=== PATIENT | female | born 1945 | race Caucasian/White ===

== ENCOUNTER 2021-01-04 11:20 | Emergency (ER) | payer MEDICARE, OTHER ==
[2021-01-04] MEDS ORDERED: Sodium Chloride 0.9% 10 ML Syringe FLUSH PRN (12:08)
--- NOTE | 2021-01-04 12:54 | CT ---
Head CT Technique: Multiple axial sections were obtained through the brain. Reconstructed coronal and sagittal images were obtained. Comparison: No prior intracranial imaging is available. Findings: Ventricles along with basal cisterns and sulci over the convexities are mildly prominent. Diminished density is noted within the periventricular white matter and subcortical white matter which most likely represents small vessel ischemic demyelination change. Minimal low density area is seen within the right cerebellar hemisphere compatible with old lacunar infarct. No other abnormal parenchymal densities are seen. No evidence of intracranial hemorrhage is seen. No midline shift or mass-effect is seen. Bone window settings were reviewed. Visualized mastoid sinuses are clear. Visualized paranasal sinuses show minimal mucosal thickening within the right side of the sphenoid sinus. There is atherosclerotic calcification within the carotid siphons and vertebral vessels. No acute calvarial abnormality is appreciated. Impression: 1. Senescent change as described above. 2. Nothing acute is appreciated on noncontrast head CT study. Diagnostic code #2
--- NOTE | 2021-01-04 13:07 | CR ---
Chest: 2 views of the chest were obtained. Comparison: No prior chest imaging is available. Heart size and mediastinum are within normal limits. Bichamber pacemaker is noted. Sternotomy wires are noted as well as prosthetic heart valve. Lungs are clear with no acute parenchymal change. Mild degenerative change is scattered within the spine. Impression: 1. Findings as noted above. 2. Nothing acute is appreciated on 2 view chest x-ray. Diagnostic code #2
[2021-01-04] MEDS ORDERED: Sodium Chloride 0.9% 1,000 ML IV STA (13:45)
--- NOTE | 2021-01-04 13:48 | EDM.PDOC ---
ED HPI GENERAL MEDICAL PROBLEM - General Chief Complaint: Genitourinary Problem Stated Complaint: WEAK,LIGHTHEADED,DIABETIC SENT BY [facility] Time Seen by Provider: 01/04/21 11:30 Source of Information: Reports: Patient, Family, RN Notes Reviewed History Limitations: Reports: No Limitations - History of Present Illness INITIAL COMMENTS - FREE TEXT/NARRATIVE: Patient is a 75-year-old female presenting to the emergency department with her son with complaints of weakness, shortness of breath, lightheadedness, and recent falls. Patient is visiting her son from [place]. Son reports that about 1 month ago, she was hospitalized in [place] for dehydration. She came up here about a week ago. When he went to supervisor picking crew an ER, he noticed that she was not quite right. Is reported that she has been getting progressively more weak over the last few weeks. She does have a history of dementia and has had some intermittent confusion. Patient and her son report that she had a fall on Friday in which she hit the back of her head. She had another fall yesterday in which she had the back of her head. She denies any pain to other portions of her body. She states that she does have chronic shortness of breath, however it has been worse over the last few weeks. Yesterday after the fall, she had some numbness in the left side of her tongue, however this lasted approximately half hour and then resolved. States that her weakness is bilateral and generalized throughout. She is not more weak on one side than the other. She denies any headache or acute vision changes. She has had no recent chest pain, nausea, vomiting, abdominal pain or diarrhea. She was seen at the [facility] prior to coming here and diagnosed with a urinary tract infection. Patient does report that she has had urinary tract infections in the past and is incontinent of urine at this time. She has had no known fever. - Related Data Allergies Allergy/AdvReac Type Severity Reaction Status Date / Time cephalexin Allergy Cannot Verified 01/04/21 11:36 Remember Home Meds: Home Meds Amitriptyline [Elavil] 50 mg PO DAILY 01/04/21 [History] Aspirin 81 mg PO DAILY 01/04/21 [History] Donepezil [Aricept] 5 mg PO BEDTIME 01/04/21 [History] Simvastatin [Zocor] 10 mg PO BEDTIME 01/04/21 [History] atenoloL [Atenolol] 25 mg PO DAILY 01/04/21 [History] predniSONE [Prednisone] 5 mg PO DAILY 01/04/21 [History] Past Medical History HEENT History: Reports: Cataract, Hard of Hearing, Impaired Vision Cardiovascular History: Reports: Bypass, High Cholesterol, Hypertension, OR Respiratory History: Reports: SOB Genitourinary History: Reports: Urinary Incontinence, UTI, Recurrent [employer] History: Reports: Musculoskeletal History: Reports: Arthritis Neurological History: Reports: Migraines Endocrine/Metabolic History: Reports: Diabetes, Type II - Infectious Disease History Infectious Disease History: Reports: Chicken Pox - Past Surgical History HEENT Surgical History: Reports: Cataract Surgery Cardiovascular Surgical History: Reports: Coronary Artery Bypass Musculoskeletal Surgical History: Reports: Carpal Tunnel Social & Family History - Family History Family Medical History: No Pertinent Family History - Tobacco Use Tobacco Use Status *Q: Former Tobacco User Years of Tobacco use: 27 Packs/Tins Daily: 2 Used Tobacco, but Quit: Yes Month/Year Tobacco Last Used: 06/1980 Second Hand Smoke Exposure: No - Caffeine Use Caffeine Use: Reports: None - Recreational Drug Use Recreational Drug Use: No ED ROS GENERAL - Review of Systems Review Of Systems: See Below Constitutional: Reports: Weakness, Fatigue. Denies: Fever, Chills HEENT: Reports: No Symptoms Respiratory: Reports: Shortness of Breath. Denies: Pleuritic Chest Pain, Cough Cardiovascular: Reports: Dyspnea on Exertion, Lightheadedness. Denies: Chest Pain, Edema, Syncope Endocrine: Reports: No Symptoms GI/Abdominal: Reports: Black Stool. Denies: Abdominal Pain, Nausea, Vomiting : Reports: Incontinence. Denies: Dysuria Musculoskeletal: Reports: No Symptoms Skin: Reports: No Symptoms Neurological: Reports: Confusion (At baseline. History of dementia.). Denies: Dizziness, Headache Psychiatric: Reports: No Symptoms Hematologic/Lymphatic: Reports: No Symptoms Immunologic: Reports: No Symptoms ED EXAM, GI/ABD - Physical Exam Exam: See Below Exam Limited By: No Limitations General Appearance: Alert, WD/WN, No Apparent Distress Eyes: Bilateral: Normal Appearance Throat/Mouth: Normal Inspection, Normal Lips, Normal Teeth, Normal Gums, Normal Oropharynx, Normal Voice, No Airway Compromise Respiratory/Chest: No Respiratory Distress, Lungs Clear, Normal Breath Sounds, No Accessory Muscle Use, Chest Non-Tender Cardiovascular: Normal Peripheral Pulses, Regular Rate, Rhythm, No Edema, No Gallop, No JVD, No Murmur, No Rub GI/Abdominal Exam: Normal Bowel Sounds, Soft, Non-Tender, No Organomegaly, No Distention, No Abnormal Bruit, No Mass, Pelvis Stable Rectal (Female) Exam: Normal Exam, Normal Rectal Tone, Heme + Stool Neurological: Alert, Oriented, CN II-XII Intact, Normal Cognition, Normal Gait, Normal Reflexes, No Motor/Sensory Deficits, Other (Transient confusion due to history of dementia.) Psychiatric: Normal Affect, Normal Mood Skin Exam: Warm, Dry, Intact, No Rash, Pallor #1 Interpretation EKG Date: 01/04/21 Time: 12:50 Rhythm: NSR Rate (Beats/Min): 60 [place]: Normal P-Wave: Present QRS: Normal ST-T: Normal QT: Normal EKG Interpretation Comments: Sinus rhythm at 60/min Q waves in V1 and V2-old anterior septal OR T wave inversion 1/aVL/V3 through V6-consider ischemia First-degree AV block EKG interpreted by Dr. Shruti TURNER. Course - Vital Signs Last Recorded V/S: Last Vital Signs Temp 97.1 F 01/04/21 11:28 Pulse 79 01/04/21 11:28 Resp 18 01/04/21 11:28 BP 108/28 L 01/04/21 11:28 Pulse Ox 96 01/04/21 11:28 - Orders/Labs/Meds Orders: Active Orders 24 hr Category Date Time Status ANTIBODY IDENTIFICATION [BBK] Stat Lab 01/04/21 11:55 Results CULTURE BLOOD [BC] Stat Lab 01/04/21 12:45 Received CULTURE BLOOD [BC] Stat Lab 01/04/21 13:05 Received CULTURE URINE [MREF] Stat Lab 01/04/21 13:58 Received RED BLOOD CELLS LP [BBK] Stat Lab 01/04/21 11:55 Results TYPE AND SCREEN [BBK] Stat Lab 01/04/21 11:55 Results Blood Culture x2 Reflex Set [OM.PC] Stat Oth 01/04/21 12:08 Ordered Peripheral IV Insertion Adult [OM.PC] Stat Oth 01/04/21 12:08 Ordered Transfuse Red Blood Cells [COMM] Routine Oth 01/04/21 13:33 Ordered Labs: Laboratory Tests 01/04/21 01/04/21 01/04/21 Range/Units 11:55 11:55 11:55 WBC (3.98-10.04) K/mm3 RBC (3.98-5.22) M/mm3 Hgb (11.2-15.7) gm/dl Hct (34.1-44.9) % MCV (79.4-94.8) fl MCH (25.6-32.2) pg MCHC (32.2-35.5) g/dl RDW Std Deviation (36.4-46.3) fL Plt Count (182-369) K/mm3 MPV (9.4-12.3) fl Neut % (Auto) (34.0-71.1) % Lymph % (Auto) (19.3-51.7) % [place] % (Auto) (4.7-12.5) % Eos % (Auto) (0.7-5.8) Baso % (Auto) (0.1-1.2) % Neut # (Auto) (1.56-6.13) K/mm3 Lymph # (Auto) (1.18-3.74) K/mm3 [place] # (Auto) (0.24-0.36) K/mm3 Eos # (Auto) (0.04-0.36) K/mm3 Baso # (Auto) (0.01-0.08) K/mm3 Manual Slide Review Sodium (136-145) mEq/L Potassium (3.5-5.1) mEq/L Chloride (98-107) mEq/L Carbon Dioxide (21-32) mEq/L Anion Gap (5-15) BUN (7-18) mg/dL Creatinine (0.55-1.02) mg/dL Est Cr Clr Drug Dosing mL/min Estimated GFR (MDRD) (>60) mL/min BUN/Creatinine Ratio (14-18) Glucose (70-99) mg/dL Calcium (8.5-10.1) mg/dL Magnesium (1.8-2.4) mg/dL Total Bilirubin (0.2-1.0) mg/dL AST (15-37) U/L ALT (14-59) U/L Alkaline Phosphatase (46-116) U/L CK-MB (CK-2) (0-3.6) ng/ml Troponin I (0.00-0.056) ng/mL C-Reactive Protein (<1.0) mg/dL NT-Pro-B Natriuret Pep (0-450) pg/mL Total Protein (6.4-8.2) g/dl Albumin (3.4-5.0) g/dl Globulin gm/dL Albumin/Globulin Ratio (1-2) Vitamin B12 321 (193-986) pg/ml Folate 13.0 (8.6-58.9) ng/mL Urine Color (Yellow) Urine Appearance (Clear) Urine pH (5.0-8.0) Ur Specific [place] (1.005-1.030) Urine Protein (Negative) Urine Glucose (UA) (Negative) Urine Ketones (Negative) Urine Occult Blood (Negative) Urine Nitrite (Negative) Urine Bilirubin (Negative) Urine Urobilinogen (0.2-1.0) Ur Leukocyte Esterase (Negative) U Hyaline Cast (Auto) (0-5) /lpf Urine RBC (0-5) /hpf Urine WBC (0-5) /hpf Ur Squamous Epith Cells (0-5) /hpf Urine Bacteria (FEW) /hpf Urine Mucus (FEW) /hpf SARS-CoV-2 RNA (DORA) (NEGATIVE) Blood Type O POSITIVE Gel Antibody Screen Positive Crossmatch See Detail 01/04/21 01/04/21 01/04/21 Range/Units 11:55 12:45 12:45 WBC 7.65 (3.98-10.04) K/mm3 RBC 2.00 L (3.98-5.22) M/mm3 Hgb 5.9 L* (11.2-15.7) gm/dl Hct 20.7 L (34.1-44.9) % MCV 103.5 H (79.4-94.8) fl MCH 29.5 (25.6-32.2) pg MCHC 28.5 L (32.2-35.5) g/dl RDW Std Deviation 56.3 H (36.4-46.3) fL Plt Count 118 L (182-369) K/mm3 MPV 11.7 (9.4-12.3) fl Neut % (Auto) 74.9 H (34.0-71.1) % Lymph % (Auto) 15.6 L (19.3-51.7) % [place] % (Auto) 8.8 (4.7-12.5) % Eos % (Auto) 0.1 L (0.7-5.8) Baso % (Auto) 0.1 (0.1-1.2) % Neut # (Auto) 5.73 (1.56-6.13) K/mm3 Lymph # (Auto) 1.19 (1.18-3.74) K/mm3 [place] # (Auto) 0.67 H (0.24-0.36) K/mm3 Eos # (Auto) 0.01 L (0.04-0.36) K/mm3 Baso # (Auto) 0.01 (0.01-0.08) K/mm3 Manual Slide Review Abnormal smear Sodium 139 (136-145) mEq/L Potassium 4.5 (3.5-5.1) mEq/L Chloride 101 (98-107) mEq/L Carbon Dioxide 22 (21-32) mEq/L Anion Gap 20.5 H (5-15) BUN 24 H (7-18) mg/dL Creatinine 1.2 H (0.55-1.02) mg/dL Est Cr Clr Drug Dosing 31.05 mL/min Estimated GFR (MDRD) 44 (>60) mL/min BUN/Creatinine Ratio 20.0 H (14-18) Glucose 134 H (70-99) mg/dL Calcium 10.5 H (8.5-10.1) mg/dL Magnesium 1.6 L (1.8-2.4) mg/dL Total Bilirubin 0.4 (0.2-1.0) mg/dL AST 18 (15-37) U/L ALT 25 (14-59) U/L Alkaline Phosphatase 56 (46-116) U/L CK-MB (CK-2) 34.0 H (0-3.6) ng/ml Troponin I 0.215 H* (0.00-0.056) ng/mL C-Reactive Protein 0.7 (<1.0) mg/dL NT-Pro-B Natriuret Pep (0-450) pg/mL Total Protein 6.8 (6.4-8.2) g/dl Albumin 3.1 L (3.4-5.0) g/dl Globulin 3.7 gm/dL Albumin/Globulin Ratio 0.8 L (1-2) Vitamin B12 (193-986) pg/ml Folate (8.6-58.9) ng/mL Urine Color (Yellow) Urine Appearance (Clear) Urine pH (5.0-8.0) Ur Specific [place] (1.005-1.030) Urine Protein (Negative) Urine Glucose (UA) (Negative) Urine Ketones (Negative) Urine Occult Blood (Negative) Urine Nitrite (Negative) Urine Bilirubin (Negative) Urine Urobilinogen (0.2-1.0) Ur Leukocyte Esterase (Negative) U Hyaline Cast (Auto) (0-5) /lpf Urine RBC (0-5) /hpf Urine WBC (0-5) /hpf Ur Squamous Epith Cells (0-5) /hpf Urine Bacteria (FEW) /hpf Urine Mucus (FEW) /hpf SARS-CoV-2 RNA (DORA) (NEGATIVE) Blood Type Gel Antibody Screen Crossmatch 01/04/21 01/04/21 01/04/21 Range/Units 12:45 13:45 13:55 WBC (3.98-10.04) K/mm3 RBC (3.98-5.22) M/mm3 Hgb (11.2-15.7) gm/dl Hct (34.1-44.9) % MCV (79.4-94.8) fl MCH (25.6-32.2) pg MCHC (32.2-35.5) g/dl RDW Std Deviation (36.4-46.3) fL Plt Count (182-369) K/mm3 MPV (9.4-12.3) fl Neut % (Auto) (34.0-71.1) % Lymph % (Auto) (19.3-51.7) % [place] % (Auto) (4.7-12.5) % Eos % (Auto) (0.7-5.8) Baso % (Auto) (0.1-1.2) % Neut # (Auto) (1.56-6.13) K/mm3 Lymph # (Auto) (1.18-3.74) K/mm3 [place] # (Auto) (0.24-0.36) K/mm3 Eos # (Auto) (0.04-0.36) K/mm3 Baso # (Auto) (0.01-0.08) K/mm3 Manual Slide Review Sodium (136-145) mEq/L Potassium (3.5-5.1) mEq/L Chloride (98-107) mEq/L Carbon Dioxide (21-32) mEq/L Anion Gap (5-15) BUN (7-18) mg/dL Creatinine (0.55-1.02) mg/dL Est Cr Clr Drug Dosing mL/min Estimated GFR (MDRD) (>60) mL/min BUN/Creatinine Ratio (14-18) Glucose (70-99) mg/dL Calcium (8.5-10.1) mg/dL Magnesium (1.8-2.4) mg/dL Total Bilirubin (0.2-1.0) mg/dL AST (15-37) U/L ALT (14-59) U/L Alkaline Phosphatase (46-116) U/L CK-MB (CK-2) (0-3.6) ng/ml Troponin I (0.00-0.056) ng/mL C-Reactive Protein (<1.0) mg/dL NT-Pro-B Natriuret Pep 1301 H (0-450) pg/mL Total Protein (6.4-8.2) g/dl Albumin (3.4-5.0) g/dl Globulin gm/dL Albumin/Globulin Ratio (1-2) Vitamin B12 (193-986) pg/ml Folate (8.6-58.9) ng/mL Urine Color Light yellow (Yellow) Urine Appearance Slt cloudy H (Clear) Urine pH 6.0 (5.0-8.0) Ur Specific [place] 1.025 (1.005-1.030) Urine Protein Negative (Negative) Urine Glucose (UA) Negative (Negative) Urine Ketones Trace H (Negative) Urine Occult Blood Negative (Negative) Urine Nitrite Positive H (Negative) Urine Bilirubin Negative (Negative) Urine Urobilinogen 0.2 (0.2-1.0) Ur Leukocyte Esterase 1+ H (Negative) U Hyaline Cast (Auto) 20-30 H (0-5) /lpf Urine RBC Not seen (0-5) /hpf Urine WBC 20-30 H (0-5) /hpf Ur Squamous Epith Cells 0-5 (0-5) /hpf Urine Bacteria Many H (FEW) /hpf Urine Mucus Moderate H (FEW) /hpf SARS-CoV-2 RNA (DORA) Negative (NEGATIVE) Blood Type Gel Antibody Screen Crossmatch 01/04/21 Range/Units 16:06 WBC (3.98-10.04) K/mm3 RBC (3.98-5.22) M/mm3 Hgb 5.1 L* (11.2-15.7) gm/dl Hct 17.7 L (34.1-44.9) % MCV (79.4-94.8) fl MCH (25.6-32.2) pg MCHC (32.2-35.5) g/dl RDW Std Deviation (36.4-46.3) fL Plt Count (182-369) K/mm3 MPV (9.4-12.3) fl Neut % (Auto) (34.0-71.1) % Lymph % (Auto) (19.3-51.7) % [place] % (Auto) (4.7-12.5) % Eos % (Auto) (0.7-5.8) Baso % (Auto) (0.1-1.2) % Neut # (Auto) (1.56-6.13) K/mm3 Lymph # (Auto) (1.18-3.74) K/mm3 [place] # (Auto) (0.24-0.36) K/mm3 Eos # (Auto) (0.04-0.36) K/mm3 Baso # (Auto) (0.01-0.08) K/mm3 Manual Slide Review Sodium (136-145) mEq/L Potassium (3.5-5.1) mEq/L Chloride (98-107) mEq/L Carbon Dioxide (21-32) mEq/L Anion Gap (5-15) BUN (7-18) mg/dL Creatinine (0.55-1.02) mg/dL Est Cr Clr Drug Dosing mL/min Estimated GFR (MDRD) (>60) mL/min BUN/Creatinine Ratio (14-18) Glucose (70-99) mg/dL Calcium (8.5-10.1) mg/dL Magnesium (1.8-2.4) mg/dL Total Bilirubin (0.2-1.0) mg/dL AST (15-37) U/L ALT (14-59) U/L Alkaline Phosphatase (46-116) U/L CK-MB (CK-2) (0-3.6) ng/ml Troponin I (0.00-0.056) ng/mL C-Reactive Protein (<1.0) mg/dL NT-Pro-B Natriuret Pep (0-450) pg/mL Total Protein (6.4-8.2) g/dl Albumin (3.4-5.0) g/dl Globulin gm/dL Albumin/Globulin Ratio (1-2) Vitamin B12 (193-986) pg/ml Folate (8.6-58.9) ng/mL Urine Color (Yellow) Urine Appearance (Clear) Urine pH (5.0-8.0) Ur Specific [place] (1.005-1.030) Urine Protein (Negative) Urine Glucose (UA) (Negative) Urine Ketones (Negative) Urine Occult Blood (Negative) Urine Nitrite (Negative) Urine Bilirubin (Negative) Urine Urobilinogen (0.2-1.0) Ur Leukocyte Esterase (Negative) U Hyaline Cast (Auto) (0-5) /lpf Urine RBC (0-5) /hpf Urine WBC (0-5) /hpf Ur Squamous Epith Cells (0-5) /hpf Urine Bacteria (FEW) /hpf Urine Mucus (FEW) /hpf SARS-CoV-2 RNA (DORA) (NEGATIVE) Blood Type Gel Antibody Screen Crossmatch Meds: Medications Discontinued Medications Generic Name Dose Route Start Last Admin Trade Name Freq PRN Reason Stop Dose Admin Sodium Chloride 1,000 mls @ 75 mls/hr 01/04/21 13:45 01/04/21 14:04 Normal Saline IV 01/05/21 03:04 75 mls/hr NOW STA Administration Piperacillin Sod/Tazobactam 100 mls @ 200 mls/hr 01/04/21 14:44 01/04/21 15:32 Sod 4.5 gm/ Sodium Chloride IV 01/04/21 15:13 200 mls/hr ONETIME ONE Administration Pantoprazole Sodium 80 mg 01/04/21 14:45 01/04/21 15:26 Pantoprazole 40 Mg Vial IVPUSH 01/04/21 14:46 80 mg BOLUS ONE Administration Sodium Chloride 10 ml 01/04/21 12:08 01/04/21 12:19 Sodium Chloride 0.9% 10 Ml Syringe FLUSH 10 ml ASDIRECTED PRN Administration Keep Vein Open - Re-Assessments/Exams Free Text/Narrative Re-Assessment/Exam: 01/04/21 13:43 Critical hemoglobin received from lab. Hemoglobin is 5.9. After further discussion with patient, she reports having a large black stool this morning. Hemoccult stool was positive. I ordered type and screen with 3 units of packed RBCs to be crossmatched. 01/04/21 1510 Remainder of hematology was significant for anion gap elevated at 20.5, BUN 24, creatinine 1.2, magnesium 1.6, CK-MB 34, troponin 0 0.215, proBNP 1301. Urinalysis was grossly positive for urinary tract infection. Patient has an allergy to cephalexin, but states that she has done well with penicillins in the past. I have ordered Zosyn for treatment of urinary tract infection. Urine has been sent for culture. Case was discussed with Dr. Mays, coal trimmer machine operator bat person at [facility]. He feels the elevation in troponin is related to her anemia. Recommends transfusion of blood to maintain hemoglobin above 8 and treatment for urinary tract infection. Recommends trending troponins. Does not feel any further cardiac intervention is needed at this time. Immediately after getting off the phone with Dr. Paula, I received a call from lab notify me that patient has antibodies, therefore blood will not be available to be transfused until tomorrow at the earliest. I feel patient needs blood transfusion as soon as possible. Case was discussed with hospitalist at [facility], Dr. Brooks. He has accepted the patient for transfer with a direct admission. He did request that if she is not on the road in the next hour, that we repeat a hemoglobin. One[facility]call will notify us when a bed is available and patient will be sent by ground ambulance. 01/04/21 16:32 Repeat hemoglobin was 5.1. Called and spoke with 1 call nurse who will update the hospitalist of this. Patient is currently in route to [facility] via [facility]. Departure - Departure Time of Disposition: 15:10 Disposition: DC/Tfer to Acute Hospital 02 Condition: Fair Clinical Impression: UTI, Urinary tract infectious disease, Upper GI bleeding, Elevated troponin Anemia Qualifiers: Anemia type: unspecified type Qualified Code(s): D64.9 - Anemia, unspecified - Discharge Information Referrals: PCP,Not In Area [Primary Care Provider] - Forms: ED Department Discharge Sepsis Event Note (ED) - Evaluation Sepsis Screening Result: No Definite Risk - Focused Exam Vital Signs: Vital Signs Temp Pulse Resp BP Pulse Ox 01/04/21 11:28 97.1 F 79 18 108/28 L 96 - My Orders Last 24 Hours: My Active Orders 01/04/21 11:55 ANTIBODY IDENTIFICATION [BBK] Stat RED BLOOD CELLS LP [BBK] Stat TYPE AND SCREEN [BBK] Stat 01/04/21 12:08 Blood Culture x2 Reflex Set [OM.PC] Stat Peripheral IV Insertion Adult [OM.PC] Stat 01/04/21 12:45 CULTURE BLOOD [BC] Stat 01/04/21 13:05 CULTURE BLOOD [BC] Stat 01/04/21 13:33 Transfuse Red Blood Cells [COMM] Routine 01/04/21 13:58 CULTURE URINE [MREF] Stat - Assessment/Plan Last 24 Hours: My Active Orders 01/04/21 11:55 ANTIBODY IDENTIFICATION [BBK] Stat RED BLOOD CELLS LP [BBK] Stat TYPE AND SCREEN [BBK] Stat 01/04/21 12:08 Blood Culture x2 Reflex Set [OM.PC] Stat Peripheral IV Insertion Adult [OM.PC] Stat 01/04/21 12:45 CULTURE BLOOD [BC] Stat 01/04/21 13:05 CULTURE BLOOD [BC] Stat 01/04/21 13:33 Transfuse Red Blood Cells [COMM] Routine 01/04/21 13:58 CULTURE URINE [MREF] Stat
[2021-01-04] MEDS ORDERED: Piperacillin/Tazobactam 4.5 GM in Sodium Chloride 0.9% 100 ML IV ONE (14:44)
[2021-01-04] MEDS ORDERED: Pantoprazole 40 MG Vial IVPUSH ONE (14:45)
== END 2021-01-04 16:15 ==
LOC: JD.ED 11:20
DX: K92.2 Gastrointestinal hemorrhage, unspecified (principal); N39.0 Urinary tract infection, site not specified; R79.89 Other specified abnormal findings of blood chemistry; D64.9 Anemia, unspecified; I44.0 Atrioventricular block, first degree; I10 Essential (primary) hypertension; E78.00 Pure hypercholesterolemia, unspecified; I25.2 Old myocardial infarction; M19.90 Unspecified osteoarthritis, unspecified site; E11.9 Type 2 diabetes mellitus without complications; Z87.891 Personal history of nicotine dependence; Z88.1 Allergy status to other antibiotic agents; Z79.82 Long term (current) use of aspirin; Z79.899 Other long term (current) drug therapy; Z20.822 Contact with and (suspected) exposure to COVID-19
CPT/HCPCS: 36415; 70450; 71046; 80053; 81001; 82553; 82607; 82746; 83735; 83880; 84484; 85014; 85018; 85025; 86140; 87040; 87086; 87088; 87186; 93005; 96365; 96375; 99285; C9113; J2543; J7030; U0002; 86850; 86870; 86900; 86901; 86922; 93010

== ENCOUNTER 2021-01-17 08:55 | Emergency (ER) | payer MEDICARE, OTHER ==
[2021-01-17] MEDS ORDERED: Sodium Chloride 0.9% 10 ML Syringe FLUSH PRN (09:22)
[2021-01-17] MEDS ORDERED: Pantoprazole 40 MG Vial IVPUSH ONE (09:23)
--- NOTE | 2021-01-17 10:25 | CR ---
Chest: Portable view of the chest was obtained. Comparison: Prior chest x-ray of 01/04/21. Heart size is felt to be slightly enlarged. Tortuous thoracic aorta is seen. Pacemaker is noted. Lungs are clear with no acute parenchymal change. Surgical clips are noted from prior cholecystectomy. Sternotomy is noted with prosthetic valve. Impression: 1. Slightly prominent heart size. Prior sternotomy is noted. Prosthetic heart valve is seen. Pacemaker is noted. 2. Nothing acute is otherwise seen. Diagnostic code #2
--- NOTE | 2021-01-17 12:41 | EDM.PDOC ---
ED HPI GENERAL MEDICAL PROBLEM - General Chief Complaint: Chest Pain Stated Complaint: CHEST TIGHTNESS/NAUSEA/DARK STOOL Time Seen by Provider: 01/17/21 09:12 Source of Information: Reports: Patient, Family History Limitations: Reports: No Limitations - History of Present Illness INITIAL COMMENTS - FREE TEXT/NARRATIVE: The patient presents with loose dark stools and chest pain. The chest pain started last night and went away and now this morning she had it again. She also has been having loose dark stools and she vomited once this morning. She was seen her about 13 days ago for weakness. She was found to have low Hgb of 5.9 and elevated troponin. She was sent to [facility] in [place]. She was found to have a UTI and GI bleed. According to her son, her Hgb went up to normal with blood. She had antibodies in her blood so she needed to go to [place]. She has no fever, chills, cough, abdominal pain, nausea or vomiting. She does have shortness of breath. Onset: Gradual Duration: Day(s): Location: Reports: Chest Quality: Reports: Sharp Severity: Moderate Improves with: Reports: None Worsens with: Reports: None Associated Symptoms: Reports: Chest Pain, Shortness of Breath. Denies: Cough, Fever/Chills, Headaches, Nausea/Vomiting Chest Pain Score (Numeric/FACES): 8 - Related Data Allergies Allergy/AdvReac Type Severity Reaction Status Date / Time cephalexin Allergy Cannot Verified 01/17/21 09:04 Remember Home Meds: Home Meds Amitriptyline [Elavil] 50 mg PO DAILY 01/04/21 [History] Aspirin 81 mg PO DAILY 01/04/21 [History] Donepezil [Aricept] 5 mg PO BEDTIME 01/04/21 [History] Simvastatin [Zocor] 10 mg PO BEDTIME 01/04/21 [History] atenoloL [Atenolol] 25 mg PO DAILY 01/04/21 [History] predniSONE [Prednisone] 5 mg PO DAILY 01/04/21 [History] Past Medical History HEENT History: Reports: Cataract, Hard of Hearing, Impaired Vision Cardiovascular History: Reports: Bypass, High Cholesterol, Hypertension, [place] Respiratory History: Reports: SOB Gastrointestinal History: Reports: GI Bleed, PUD Genitourinary History: Reports: Urinary Incontinence, UTI, Recurrent [employer]ENER History: Reports: Musculoskeletal History: Reports: Arthritis Neurological History: Reports: Migraines Psychiatric History: Reports: None Endocrine/Metabolic History: Reports: Diabetes, Type II Hematologic History: Reports: Anemia Other Hematologic History: antibodies in blood Immunologic History: Reports: None Oncologic (Cancer) History: Reports: None Dermatologic History: Reports: None - Infectious Disease History Infectious Disease History: Reports: Chicken Pox - Past Surgical History HEENT Surgical History: Reports: Cataract Surgery Cardiovascular Surgical History: Reports: Coronary Artery Bypass Musculoskeletal Surgical History: Reports: Carpal Tunnel Social & Family History - Family History Family Medical History: No Pertinent Family History - Tobacco Use Tobacco Use Status *Q: Never Tobacco User - Caffeine Use Caffeine Use: Reports: Coffee - Recreational Drug Use Recreational Drug Use: No ED ROS GENERAL - Review of Systems Review Of Systems: See Below Constitutional: Reports: No Symptoms HEENT: Reports: No Symptoms Respiratory: Reports: Shortness of Breath Cardiovascular: Reports: Chest Pain Endocrine: Reports: No Symptoms GI/Abdominal: Reports: No Symptoms : Reports: No Symptoms Musculoskeletal: Reports: No Symptoms ED EXAM, GENERAL - Physical Exam Exam: See Below Exam Limited By: No Limitations General Appearance: Alert, No Apparent Distress Ears: Normal External Exam Nose: Normal Inspection Head: Atraumatic, Normocephalic Neck: Normal Inspection Respiratory/Chest: No Respiratory Distress, Lungs Clear, Normal Breath Sounds Cardiovascular: Regular Rate, Rhythm, No Edema, No Murmur GI/Abdominal: Soft, Non-Tender, No Organomegaly, No Mass Rectal (Female) Exam: Heme + Stool #1 Interpretation EKG Date: 01/17/21 Time: 09:02 Rhythm: Other (A-V dual paced rhythm) Rate (Beats/Min): 60 Pearson: Normal QRS: Wide ST-T: Normal QT: Normal Course - Vital Signs Last Recorded V/S: Last Vital Signs Temp 97.5 F 01/17/21 09:10 Pulse 70 01/17/21 09:10 Resp 20 01/17/21 09:10 BP 134/64 01/17/21 09:10 Pulse Ox 97 01/17/21 09:10 - Orders/Labs/Meds Orders: Active Orders 24 hr Category Date Time Status Cardiac Monitoring [RC] . DIRECTED Care 01/17/21 09:22 Active EKG Documentation Completion [RC] ASDIRECTED Care 01/17/21 08:58 Active Peripheral IV Care [RC] . DIRECTED Care 01/17/21 09:23 Active ANTIBODY IDENTIFICATION [BBK] Stat Lab 01/17/21 10:23 Results CORONAVIRUS COVID-19 DORA [MOLEC] Stat Lab 01/17/21 13:10 Received TYPE AND SCREEN [BBK] Stat Lab 01/17/21 10:23 Results UA W/MICROSCOPIC [URIN] Stat Lab 01/17/21 09:22 Ordered Sodium Chloride 0.9% [Normal Saline] 1,000 ml Med 01/17/21 13:45 Active IV ASDIRECTED Sodium Chloride 0.9% [Saline Flush] Med 01/17/21 09:22 Active 10 ml FLUSH ASDIRECTED PRN Peripheral IV Insertion Adult [OM.PC] Stat Oth 01/17/21 09:22 Ordered EKG 12 Lead [EK] Stat Ther 01/17/21 08:58 Ordered Medication Orders Sodium Chloride (Normal Saline) 1,000 mls @ 100 mls/hr IV ASDIRECTED NOREEN Sodium Chloride (Sodium Chloride 0.9% 10 Ml Syringe) 10 ml FLUSH ASDIRECTED PRN PRN Reason: Keep Vein Open Last Admin: 01/17/21 09:49 Dose: 10 ml Documented by: TODD Labs: Laboratory Tests 01/17/21 01/17/21 01/17/21 Range/Units 10:23 10:23 10:23 WBC 7.54 (3.98-10.04) K/mm3 RBC 2.23 L (3.98-5.22) M/mm3 Hgb 7.3 L* D (11.2-15.7) gm/dl Hct 25.5 L (34.1-44.9) % MCV 114.3 H D (79.4-94.8) fl MCH 32.7 H (25.6-32.2) pg MCHC 28.6 L (32.2-35.5) g/dl RDW Std Deviation 92.7 H (36.4-46.3) fL Plt Count 72 L (182-369) K/mm3 MPV 11.4 (9.4-12.3) fl Neut % (Auto) 75.2 H (34.0-71.1) % Lymph % (Auto) 11.9 L (19.3-51.7) % Chilton % (Auto) 8.8 (4.7-12.5) % Eos % (Auto) 0.7 (0.7-5.8) Baso % (Auto) 0.3 (0.1-1.2) % Neut # (Auto) 5.68 (1.56-6.13) K/mm3 Lymph # (Auto) 0.90 L (1.18-3.74) K/mm3 [place] # (Auto) 0.66 H (0.24-0.36) K/mm3 Eos # (Auto) 0.05 (0.04-0.36) K/mm3 Baso # (Auto) 0.02 (0.01-0.08) K/mm3 Manual Slide Review Abnormal smear PT 11.2 (9.7-12.0) SECONDS INR 1.05 APTT 23.9 (21.7-31.4) SECONDS Sodium 140 (136-145) mEq/L Potassium 3.7 (3.5-5.1) mEq/L Chloride 106 (98-107) mEq/L Carbon Dioxide 24 (21-32) mEq/L Anion Gap 13.7 (5-15) BUN 13 (7-18) mg/dL Creatinine 0.6 (0.55-1.02) mg/dL Est Cr Clr Drug Dosing 62.10 mL/min Estimated GFR (MDRD) > 60 (>60) mL/min BUN/Creatinine Ratio 21.7 H (14-18) Glucose 157 H (70-99) mg/dL Calcium 8.2 L D (8.5-10.1) mg/dL Total Bilirubin 0.8 (0.2-1.0) mg/dL AST 39 H (15-37) U/L ALT 25 (14-59) U/L Alkaline Phosphatase 56 (46-116) U/L Troponin I 2.464 H* (0.00-0.056) ng/mL Total Protein 6.5 (6.4-8.2) g/dl Albumin 2.8 L (3.4-5.0) g/dl Globulin 3.7 gm/dL Albumin/Globulin Ratio 0.8 L (1-2) Blood Type Gel Antibody Screen 01/17/21 Range/Units 10:23 WBC (3.98-10.04) K/mm3 RBC (3.98-5.22) M/mm3 Hgb (11.2-15.7) gm/dl Hct (34.1-44.9) % MCV (79.4-94.8) fl MCH (25.6-32.2) pg MCHC (32.2-35.5) g/dl RDW Std Deviation (36.4-46.3) fL Plt Count (182-369) K/mm3 MPV (9.4-12.3) fl Neut % (Auto) (34.0-71.1) % Lymph % (Auto) (19.3-51.7) % Chilton % (Auto) (4.7-12.5) % Eos % (Auto) (0.7-5.8) Baso % (Auto) (0.1-1.2) % Neut # (Auto) (1.56-6.13) K/mm3 Lymph # (Auto) (1.18-3.74) K/mm3 Chilton # (Auto) (0.24-0.36) K/mm3 Eos # (Auto) (0.04-0.36) K/mm3 Baso # (Auto) (0.01-0.08) K/mm3 Manual Slide Review PT (9.7-12.0) SECONDS INR APTT (21.7-31.4) SECONDS Sodium (136-145) mEq/L Potassium (3.5-5.1) mEq/L Chloride (98-107) mEq/L Carbon Dioxide (21-32) mEq/L Anion Gap (5-15) BUN (7-18) mg/dL Creatinine (0.55-1.02) mg/dL Est Cr Clr Drug Dosing mL/min Estimated GFR (MDRD) (>60) mL/min BUN/Creatinine Ratio (14-18) Glucose (70-99) mg/dL Calcium (8.5-10.1) mg/dL Total Bilirubin (0.2-1.0) mg/dL AST (15-37) U/L ALT (14-59) U/L Alkaline Phosphatase (46-116) U/L Troponin I (0.00-0.056) ng/mL Total Protein (6.4-8.2) g/dl Albumin (3.4-5.0) g/dl Globulin gm/dL Albumin/Globulin Ratio (1-2) Blood Type O POSITIVE Gel Antibody Screen Positive Meds: Medications Generic Name Dose Route Start Last Admin Trade Name Freq PRN Reason Stop Dose Admin Sodium Chloride 1,000 mls @ 100 mls/hr 01/17/21 13:45 Normal Saline IV ASDIRECTED NOREEN Sodium Chloride 10 ml 01/17/21 09:22 01/17/21 09:49 Sodium Chloride 0.9% 10 Ml Syringe FLUSH 10 ml ASDIRECTED PRN Administration Keep Vein Open Discontinued Medications Generic Name Dose Route Start Last Admin Trade Name Freq PRN Reason Stop Dose Admin Lorazepam 0.5 mg 01/17/21 13:42 Lorazepam 2 Mg/Ml Sdv IVPUSH 01/17/21 13:43 ONETIME ONE Pantoprazole Sodium 40 mg 01/17/21 09:23 01/17/21 09:49 Pantoprazole 40 Mg Vial IVPUSH 01/17/21 09:24 40 mg ONETIME ONE Administration - Re-Assessments/Exams Free Text/Narrative Re-Assessment/Exam: 01/17/21 12:55 I ordered an IV saline lock, EKG, CXR, and labs. Her EKG shows an AV dual paced at 60. Her CXR shows slightly prominent chowdary size. Prior sternotomy is noted. Prosthetic heart valve is seen. Pacemaker is noted. Nothing acute is otherwise seen. 01/17/21 13:43 Her Hgb is low at 7.3. PT and PTT is normal. Her glucose is elevated at 157. Her troponin is elevated at 2.464. She has antibodies. She will need to go back to [facility]. Stool was brown but guiac positive. I called [facility] in [place] and talked with Dr Rao the hospitalist network operations project manager and he accepted the patient. Departure - Departure Time of Disposition: 13:50 Disposition: DC/Tfer to [facility] 02 Reason for Transfer *Q: Other Condition: Serious Clinical Impression: Upper GI bleeding, Elevated troponin Anemia Qualifiers: Anemia type: unspecified type Qualified Code(s): D64.9 - Anemia, unspecified Referrals: Bishnu Long MD [Primary Care Provider] - Forms: ED Department Discharge Sepsis Event Note (ED) - Evaluation Sepsis Screening Result: No Definite Risk - Focused Exam Vital Signs: Vital Signs Temp Pulse Resp BP Pulse Ox 01/17/21 09:10 97.5 F 70 20 134/64 97 - My Orders Last 24 Hours: My Active Orders 01/17/21 08:58 EKG Documentation Completion [RC] ASDIRECTED EKG 12 Lead [EK] Stat 01/17/21 09:22 Cardiac Monitoring [RC] . DIRECTED UA W/MICROSCOPIC [URIN] Stat Sodium Chloride 0.9% [Saline Flush] 10 ml FLUSH ASDIRECTED PRN Peripheral IV Insertion Adult [OM.PC] Stat 01/17/21 09:23 Peripheral IV Care [RC] . DIRECTED 01/17/21 10:23 ANTIBODY IDENTIFICATION [BBK] Stat TYPE AND SCREEN [BBK] Stat 01/17/21 13:10 CORONAVIRUS COVID-19 DORA [MOLEC] Stat 01/17/21 13:45 Sodium Chloride 0.9% [Normal Saline] 1,000 ml IV ASDIRECTED - Assessment/Plan Last 24 Hours: My Active Orders 01/17/21 08:58 EKG Documentation Completion [RC] ASDIRECTED EKG 12 Lead [EK] Stat 01/17/21 09:22 Cardiac Monitoring [RC] . DIRECTED UA W/MICROSCOPIC [URIN] Stat Sodium Chloride 0.9% [Saline Flush] 10 ml FLUSH ASDIRECTED PRN Peripheral IV Insertion Adult [OM.PC] Stat 01/17/21 09:23 Peripheral IV Care [RC] . DIRECTED 01/17/21 10:23 ANTIBODY IDENTIFICATION [BBK] Stat TYPE AND SCREEN [BBK] Stat 01/17/21 13:10 CORONAVIRUS COVID-19 DORA [MOLEC] Stat 01/17/21 13:45 Sodium Chloride 0.9% [Normal Saline] 1,000 ml IV ASDIRECTED
[2021-01-17] MEDS ORDERED: LORazepam 2 MG/ML SDV IVPUSH ONE (13:42)
[2021-01-17] MEDS ORDERED: Sodium Chloride 0.9% 1,000 ML IV SCH (13:45)
== END 2021-01-17 13:10 ==
LOC: JD.ED 08:55
DX: K92.2 Gastrointestinal hemorrhage, unspecified (principal); D64.9 Anemia, unspecified; R79.89 Other specified abnormal findings of blood chemistry; E78.00 Pure hypercholesterolemia, unspecified; I10 Essential (primary) hypertension; I25.2 Old myocardial infarction; E11.9 Type 2 diabetes mellitus without complications; Z95.1 Presence of aortocoronary bypass graft; Z79.82 Long term (current) use of aspirin; Z79.899 Other long term (current) drug therapy; Z88.1 Allergy status to other antibiotic agents; Z20.822 Contact with and (suspected) exposure to COVID-19
CPT/HCPCS: 36415; 71045; 80053; 84484; 85025; 85610; 85730; 86850; 86870; 86900; 86901; 93005; 96374; 99285; C9113; J2060; J7030; U0002; 86880; 93010

== ENCOUNTER 2021-02-24 15:57 | Emergency (ER) | payer MEDICARE, OTHER ==
[2021-02-24] MEDS ORDERED: Sodium Chloride 0.9% 1,000 ML IV SCH (16:15)
[2021-02-24] MEDS ORDERED: Acetaminophen 325 MG Tab PO ONE (16:42)
--- NOTE | 2021-02-24 16:47 | EDM.PDOC ---
ED HPI GENERAL MEDICAL PROBLEM - General Chief Complaint: General Stated Complaint: [facility] Time Seen by Provider: 02/24/21 16:09 Source of Information: Reports: Patient, EMS, [facility] Records History Limitations: Reports: No Limitations - History of Present Illness INITIAL COMMENTS - FREE TEXT/NARRATIVE: The patient presents by [facility] from [facility] for shaking and dysuria. She had a fever or 102.7 when she arrived here. She as no cough, congestion, runny nose, chest pain or shortness of breath. She said she has had blood in her stools. She had a UTI and GI bleed last month and she was sent to [facility]. She said the bleeding was better the past few weeks but over the past few days she has noticed more blood. She has burning with urination the past few days. She has no abdominal pain, nausea or vomiting. Onset: Gradual Duration: Day(s): Quality: Reports: Burning Severity: Moderate Improves with: Reports: None Worsens with: Reports: None Associated Symptoms: Reports: Fever/Chills. Denies: Chest Pain, Cough, Headaches, Nausea/Vomiting, Shortness of Breath - Related Data Allergies Allergy/AdvReac Type Severity Reaction Status Date / Time cephalexin Allergy Cannot Verified 02/24/21 16:13 Remember Home Meds: Home Meds Amitriptyline [Elavil] 25 mg PO DAILY 01/04/21 [History] Aspirin 81 mg PO DAILY 01/04/21 [History] Donepezil [Aricept] 10 mg PO BEDTIME 01/04/21 [History] atenoloL [Atenolol] 25 mg PO DAILY 01/04/21 [History] predniSONE [Prednisone] 5 mg PO DAILY 01/04/21 [History] Albuterol Sulfate [Albuterol Sulfate HFA] 8.5 gm INH QID PRN 02/24/21 [History] Budesonide/Formoterol Fumarate [Symbicort 80-4.5 MCG] 1 inh PO DAILY 02/24/21 [History] Levothyroxine [Synthroid] 50 mcg PO ACBREAKFAST 02/24/21 [History] Pantoprazole [ProTONIX] 40 mg PO BID 02/24/21 [History] Rosuvastatin Calcium 20 mg PO DAILY 02/24/21 [History] Past Medical History HEENT History: Reports: Cataract, Hard of Hearing, Impaired Vision Cardiovascular History: Reports: Bypass, High Cholesterol, Hypertension, GA Respiratory History: Reports: SOB Gastrointestinal History: Reports: GI Bleed, PUD Genitourinary History: Reports: Urinary Incontinence, UTI, Recurrent [employer] History: Reports: Musculoskeletal History: Reports: Arthritis Neurological History: Reports: Migraines Psychiatric History: Reports: None Endocrine/Metabolic History: Reports: Diabetes, Type II Hematologic History: Reports: Anemia Other Hematologic History: antibodies in blood Immunologic History: Reports: None Oncologic (Cancer) History: Reports: None Dermatologic History: Reports: None - Infectious Disease History Infectious Disease History: Reports: Chicken Pox - Past Surgical History HEENT Surgical History: Reports: Cataract Surgery Cardiovascular Surgical History: Reports: Coronary Artery Bypass Musculoskeletal Surgical History: Reports: Carpal Tunnel Social & Family History - Family History Family Medical History: No Pertinent Family History - Tobacco Use Tobacco Use Status *Q: Former Tobacco User Used Tobacco, but Quit: Yes Month/Year Tobacco Last Used: unsure - Caffeine Use Caffeine Use: Reports: Coffee ED ROS GENERAL - Review of Systems Review Of Systems: See Below Constitutional: Reports: Fever, Chills, Malaise, Weakness, Fatigue HEENT: Reports: No Symptoms Respiratory: Reports: No Symptoms Cardiovascular: Reports: No Symptoms Endocrine: Reports: Fatigue GI/Abdominal: Reports: Bloody Stool. Denies: Abdominal Pain, Nausea, Vomiting : Reports: Dysuria Musculoskeletal: Reports: No Symptoms Skin: Reports: No Symptoms ED EXAM, GENERAL - Physical Exam Exam: See Below Exam Limited By: No Limitations General Appearance: Alert, No Apparent Distress Ears: Normal External Exam Nose: Normal Inspection Head: Atraumatic, Normocephalic Neck: Normal Inspection Respiratory/Chest: No Respiratory Distress, Lungs Clear, Normal Breath Sounds Cardiovascular: Regular Rate, Rhythm, No Edema, No Murmur GI/Abdominal: Soft, Non-Tender, No Organomegaly, No Mass Rectal (Female) Exam: Heme + Stool Back Exam: Normal Inspection Extremities: Normal Inspection Neurological: Alert, No Motor/Sensory Deficits Course - Vital Signs Last Recorded V/S: Last Vital Signs Temp 102.7 F H 02/24/21 16:30 Pulse 78 02/24/21 16:05 Resp 18 02/24/21 16:05 BP 142/98 H 02/24/21 16:05 Pulse Ox 98 02/24/21 16:05 - Orders/Labs/Meds Orders: Active Orders 24 hr Category Date Time Status Blood Pressure Mgt: Sepsis [RC] Q15MX2 Care 02/24/21 17:31 Active Insert Petty Catheter [Insert Urinary Catheter] [OM.PC] Care 02/24/21 16:20 Ordered Stat Oxygen Therapy [RC] PRN Care 02/24/21 16:10 Active Peripheral IV Care [RC] . DIRECTED Care 02/24/21 16:11 Active Urinary Catheter Assessment [RC] ASDIRECTED Care 02/24/21 16:20 Active Abdomen Pelvis wo Cont [CT] Stat Exams 02/24/21 18:09 Taken Chest 1V Frontal [CR] Stat Exams 02/24/21 16:10 Taken BLOOD CULTURE [MREF] Stat Lab 02/24/21 16:40 Received BLOOD CULTURE [MREF] Stat Lab 02/24/21 16:50 Received CULTURE URINE [MREF] Stat Lab 02/24/21 16:28 Received LACTATE SEPSIS W/ REFLEX [CHEM] Stat Lab 02/24/21 17:29 Ordered Sodium Chloride 0.9% [Normal Saline] 1,000 ml Med 02/24/21 16:15 Active IV ASDIRECTED Sodium Chloride 0.9% [Normal Saline] 1,800 ml Med 02/24/21 17:28 Active IV BOLUS Sodium Chloride 0.9% [Saline Flush] Med 02/24/21 16:10 Active 10 ml FLUSH ASDIRECTED PRN Sodium Chloride 0.9% [Saline Flush] Med 02/24/21 17:28 Active 10 ml FLUSH ASDIRECTED PRN Blood Culture x2 Reflex Set [OM.PC] Stat Oth 02/24/21 16:10 Ordered Peripheral IV Insertion Adult [OM.PC] Stat Oth 02/24/21 16:10 Ordered Saline Lock Insert [OM.PC] Stat Oth 02/24/21 17:29 Ordered Severe Sepsis Onset Time [OM.PC] Stat Oth 02/24/21 17:29 Ordered Medication Orders Sodium Chloride (Normal Saline) 1,000 mls @ 125 mls/hr IV ASDIRECTED NOREEN Last Admin: 02/24/21 16:47 Dose: 125 mls/hr Documented by: MIGUE Sodium Chloride (Normal Saline) 1,800 mls @ 500 mls/hr IV BOLUS ONE; Protocol Stop: 02/24/21 21:03 Last Admin: 02/24/21 18:11 Dose: 500 mls/hr Documented by: TONO Sodium Chloride (Sodium Chloride 0.9% 10 Ml Syringe) 10 ml FLUSH ASDIRECTED PRN PRN Reason: Keep Vein Open Last Admin: 02/24/21 18:10 Dose: 10 ml Documented by: Admin: 02/24/21 16:52 Dose: 10 ml Documented by: MIGUE Sodium Chloride (Sodium Chloride 0.9% 10 Ml Syringe) 10 ml FLUSH ASDIRECTED PRN PRN Reason: Keep Vein Open Last Admin: 02/24/21 18:10 Dose: 10 ml Documented by: TONO Labs: Laboratory Tests 02/24/21 02/24/21 02/24/21 Range/Units 16:25 16:25 16:40 WBC 7.03 (3.98-10.04) K/mm3 RBC 2.86 L (3.98-5.22) M/mm3 Hgb 9.4 L D (11.2-15.7) gm/dl Hct 30.7 L (34.1-44.9) % MCV 107.3 H D (79.4-94.8) fl MCH 32.9 H (25.6-32.2) pg MCHC 30.6 L (32.2-35.5) g/dl RDW Std Deviation 75.2 H (36.4-46.3) fL Plt Count 109 L (182-369) K/mm3 MPV 10.9 (9.4-12.3) fl Neut % (Auto) 88.8 H (34.0-71.1) % Lymph % (Auto) 9.0 L (19.3-51.7) % [place] % (Auto) 1.7 L (4.7-12.5) % Eos % (Auto) 0.1 L (0.7-5.8) Baso % (Auto) 0.1 (0.1-1.2) % Neut # (Auto) 6.24 H (1.56-6.13) K/mm3 Lymph # (Auto) 0.63 L (1.18-3.74) K/mm3 [place] # (Auto) 0.12 L (0.24-0.36) K/mm3 Eos # (Auto) 0.01 L (0.04-0.36) K/mm3 Baso # (Auto) 0.01 (0.01-0.08) K/mm3 PT (9.7-12.0) SECONDS INR APTT (21.7-31.4) SECONDS Sodium (136-145) mEq/L Potassium (3.5-5.1) mEq/L Chloride (98-107) mEq/L Carbon Dioxide (21-32) mEq/L Anion Gap (5-15) BUN (7-18) mg/dL Creatinine (0.55-1.02) mg/dL Est Cr Clr Drug Dosing mL/min Estimated GFR (MDRD) (>60) mL/min BUN/Creatinine Ratio (14-18) Glucose (70-99) mg/dL Lactic Acid (0.4-2.0) mmol/L Calcium (8.5-10.1) mg/dL Total Bilirubin (0.2-1.0) mg/dL AST (15-37) U/L ALT (14-59) U/L Alkaline Phosphatase (46-116) U/L Total Protein (6.4-8.2) g/dl Albumin (3.4-5.0) g/dl Globulin gm/dL Albumin/Globulin Ratio (1-2) Urine Color Yellow (Yellow) Urine Appearance Cloudy H (Clear) Urine pH 6.0 (5.0-8.0) Ur Specific [place] 1.025 (1.005-1.030) Urine Protein 1+ H (Negative) Urine Glucose (UA) 2+ H (Negative) Urine Ketones Negative (Negative) Urine Occult Blood Trace-lysed H (Negative) Urine Nitrite Positive H (Negative) Urine Bilirubin Negative (Negative) Urine Urobilinogen 0.2 (0.2-1.0) Ur Leukocyte Esterase 1+ H (Negative) Urine RBC 5-10 H (0-5) /hpf Urine WBC 75-100 H (0-5) /hpf Urine WBC Clumps Few (NOT SEEN) /hpf Ur Squamous Epith Cells 0-5 (0-5) /hpf Urine Bacteria Many H (FEW) /hpf Urine Mucus Not seen (FEW) /hpf SARS-CoV-2 RNA (DORA) Negative (NEGATIVE) 02/24/21 02/24/21 02/24/21 Range/Units 16:40 16:40 16:40 WBC (3.98-10.04) K/mm3 RBC (3.98-5.22) M/mm3 Hgb (11.2-15.7) gm/dl Hct (34.1-44.9) % MCV (79.4-94.8) fl MCH (25.6-32.2) pg MCHC (32.2-35.5) g/dl RDW Std Deviation (36.4-46.3) fL Plt Count (182-369) K/mm3 MPV (9.4-12.3) fl Neut % (Auto) (34.0-71.1) % Lymph % (Auto) (19.3-51.7) % [place] % (Auto) (4.7-12.5) % Eos % (Auto) (0.7-5.8) Baso % (Auto) (0.1-1.2) % Neut # (Auto) (1.56-6.13) K/mm3 Lymph # (Auto) (1.18-3.74) K/mm3 [place] # (Auto) (0.24-0.36) K/mm3 Eos # (Auto) (0.04-0.36) K/mm3 Baso # (Auto) (0.01-0.08) K/mm3 PT 11.5 (9.7-12.0) SECONDS INR 1.08 APTT 21.9 (21.7-31.4) SECONDS Sodium 139 (136-145) mEq/L Potassium 4.2 (3.5-5.1) mEq/L Chloride 102 (98-107) mEq/L Carbon Dioxide 22 (21-32) mEq/L Anion Gap 19.2 H (5-15) BUN 14 (7-18) mg/dL Creatinine 0.9 (0.55-1.02) mg/dL Est Cr Clr Drug Dosing 41.40 mL/min Estimated GFR (MDRD) > 60 (>60) mL/min BUN/Creatinine Ratio 15.6 (14-18) Glucose 312 H (70-99) mg/dL Lactic Acid 6.3 H* (0.4-2.0) mmol/L Calcium 8.6 (8.5-10.1) mg/dL Total Bilirubin 0.3 (0.2-1.0) mg/dL AST 33 (15-37) U/L ALT 30 (14-59) U/L Alkaline Phosphatase 105 (46-116) U/L Total Protein 6.6 (6.4-8.2) g/dl Albumin 2.9 L (3.4-5.0) g/dl Globulin 3.7 gm/dL Albumin/Globulin Ratio 0.8 L (1-2) Urine Color (Yellow) Urine Appearance (Clear) Urine pH (5.0-8.0) Ur Specific [place] (1.005-1.030) Urine Protein (Negative) Urine Glucose (UA) (Negative) Urine Ketones (Negative) Urine Occult Blood (Negative) Urine Nitrite (Negative) Urine Bilirubin (Negative) Urine Urobilinogen (0.2-1.0) Ur Leukocyte Esterase (Negative) Urine RBC (0-5) /hpf Urine WBC (0-5) /hpf Urine WBC Clumps (NOT SEEN) /hpf Ur Squamous Epith Cells (0-5) /hpf Urine Bacteria (FEW) /hpf Urine Mucus (FEW) /hpf SARS-CoV-2 RNA (DORA) (NEGATIVE) Meds: Medications Generic Name Dose Route Start Last Admin Trade Name Freq PRN Reason Stop Dose Admin Sodium Chloride 1,000 mls @ 125 mls/hr 02/24/21 16:15 02/24/21 16:47 Normal Saline IV 125 mls/hr ASDIRECTED NOREEN Administration Sodium Chloride 1,800 mls @ 500 mls/hr 02/24/21 17:28 02/24/21 18:11 Normal Saline IV 02/24/21 21:03 500 mls/hr BOLUS ONE Administration Protocol Sodium Chloride 10 ml 02/24/21 16:10 02/24/21 18:10 Sodium Chloride 0.9% 10 Ml Syringe FLUSH 10 ml ASDIRECTED PRN Administration Keep Vein Open Sodium Chloride 10 ml 02/24/21 17:28 02/24/21 18:10 Sodium Chloride 0.9% 10 Ml Syringe FLUSH 10 ml ASDIRECTED PRN Administration Keep Vein Open Discontinued Medications Generic Name Dose Route Start Last Admin Trade Name Freq PRN Reason Stop Dose Admin Acetaminophen 975 mg 02/24/21 16:42 02/24/21 16:52 Acetaminophen 325 Mg Tab PO 02/24/21 16:43 975 mg NOW ONE Administration Diphenhydramine HCl 25 mg 02/24/21 16:49 02/24/21 16:53 Diphenhydramine 25 Mg Cap PO 02/24/21 16:50 25 mg ONETIME ONE Administration Vancomycin HCl 1.5 gm/ 250 mls @ 167 mls/hr 02/24/21 17:34 02/24/21 18:55 Dextrose/Water IV 02/24/21 19:03 167 mls/hr ONETIME ONE Administration Piperacillin Sod/Tazobactam 100 mls @ 200 mls/hr 02/24/21 17:34 02/24/21 18:06 Sod 4.5 gm/ Sodium Chloride IV 02/24/21 18:03 200 mls/hr STAT ONE Administration Pantoprazole Sodium 80 mg 02/24/21 18:13 02/24/21 18:56 Pantoprazole 40 Mg Vial IVPUSH 02/24/21 18:14 80 mg BOLUS ONE Administration - Re-Assessments/Exams Free Text/Narrative Re-Assessment/Exam: 02/24/21 18:05 I ordered an IV NS at 125mL/hr, labs, blood cultures, CXR, and lactic acid. Her CXR looks good. Her WBC was normal at 7.03. Her Hgb was low at 9.4. Her alexis telets were low at 109. He PT and PTT were negative. Her glucose was elevated at 312. Her lactic acid was elevated at 6.3. I have ordered a 30ml/kg bolus which is 1,800. I also ordered urine cultures, zosyn, and vancomycin. She has severe sepsis and a GI bleed. We do not have beds here. I called [facility] in [place] and Dr Antony accepted the patient but he wanted a CT of her abdomen and pelvis. 02/24/21 19:[address] of her abdomen and pelvis shows multiple nonobstructing bilateral 2-4mm renal calculi. No hydronephrosis or hydroureter. No migrating ureteral calculus or layering urinary bladder calculus. Superior urinary bladder wall thickening. Correlate with US and/or cystoscopy. Nodular cirrhotic liver. Colonic diverticulosis without acute diverticulitis. 02/24/21 19:24 I [address] to let Dr Antony know and he was okay to let us send her. We will be drawing the 3 hour lactic acid soon. 02/24/21 19:27 I gave her a dose of protonix 80mg IV. Departure - Departure Time of Disposition: 19:30 Disposition: DC/Tfer to Acute Hospital 02 Condition: Serious Clinical Impression: Upper GI bleeding Sepsis Qualifiers: Sepsis type: sepsis due to unspecified organism Sepsis acute organ dysfunction status: unspecified Qualified Code(s): A41.9 - Sepsis, unspecified organism UTI (urinary tract infection) Qualifiers: Urinary tract infection type: acute cystitis Hematuria presence: without hematuria Qualified Code(s): N30.00 - Acute cystitis without hematuria - Discharge Information Referrals: Bishnu Long MD [Primary Care Provider] - Forms: ED Department Discharge Sepsis Event Note (ED) - Focused Exam Vital Signs: Vital Signs Temp Temp Pulse Resp BP Pulse Ox 02/24/21 16:30 102.7 F H 02/24/21 16:05 98.8 F 78 18 142/98 H 98 - My Orders Last 24 Hours: My Active Orders 02/24/21 16:10 Oxygen Therapy [RC] PRN Chest 1V Frontal [CR] Stat Sodium Chloride 0.9% [Saline Flush] 10 ml FLUSH ASDIRECTED PRN Blood Culture x2 Reflex Set [OM.PC] Stat Peripheral IV Insertion Adult [OM.PC] Stat 02/24/21 16:11 Peripheral IV Care [RC] . DIRECTED 02/24/21 16:15 Sodium Chloride 0.9% [Normal Saline] 1,000 ml IV ASDIRECTED 02/24/21 16:20 Insert Petty Catheter [Insert Urinary Catheter] [OM.PC] Stat Urinary Catheter Assessment [RC] ASDIRECTED 02/24/21 16:28 CULTURE URINE [MREF] Stat 02/24/21 16:40 BLOOD CULTURE [MREF] Stat 02/24/21 16:50 BLOOD CULTURE [MREF] Stat 02/24/21 17:28 Sodium Chloride 0.9% [Normal Saline] 1,800 ml IV BOLUS Sodium Chloride 0.9% [Saline Flush] 10 ml FLUSH ASDIRECTED PRN 02/24/21 17:29 LACTATE SEPSIS W/ REFLEX [CHEM] Stat Saline Lock Insert [OM.PC] Stat Severe Sepsis Onset Time [OM.PC] Stat 02/24/21 17:31 Blood Pressure Mgt: Sepsis [RC] Q15MX2 02/24/21 18:09 Abdomen Pelvis wo Cont [CT] Stat - Assessment/Plan Last 24 Hours: My Active Orders 02/24/21 16:10 Oxygen Therapy [RC] PRN Chest 1V Frontal [CR] Stat Sodium Chloride 0.9% [Saline Flush] 10 ml FLUSH ASDIRECTED PRN Blood Culture x2 Reflex Set [OM.PC] Stat Peripheral IV Insertion Adult [OM.PC] Stat 02/24/21 16:11 Peripheral IV Care [RC] . DIRECTED 02/24/21 16:15 Sodium Chloride 0.9% [Normal Saline] 1,000 ml IV ASDIRECTED 02/24/21 16:20 Insert Petty Catheter [Insert Urinary Catheter] [OM.PC] Stat Urinary Catheter Assessment [RC] ASDIRECTED 02/24/21 16:28 CULTURE URINE [MREF] Stat 02/24/21 16:40 BLOOD CULTURE [MREF] Stat 02/24/21 16:50 BLOOD CULTURE [MREF] Stat 02/24/21 17:28 Sodium Chloride 0.9% [Normal Saline] 1,800 ml IV BOLUS Sodium Chloride 0.9% [Saline Flush] 10 ml FLUSH ASDIRECTED PRN 02/24/21 17:29 LACTATE SEPSIS W/ REFLEX [CHEM] Stat Saline Lock Insert [OM.PC] Stat Severe Sepsis Onset Time [OM.PC] Stat 02/24/21 17:31 Blood Pressure Mgt: Sepsis [RC] Q15MX2 02/24/21 18:09 Abdomen Pelvis wo Cont [CT] Stat
[2021-02-24] MEDS ORDERED: diphenhydrAMINE 25 MG Cap PO ONE (16:49)
[2021-02-24] MEDS: Sodium Chloride 0.9% 10 ML Syringe FLUSH PRN ×2 (16:52→18:10)
[2021-02-24] MEDS ORDERED: Sodium Chloride 0.9% 10 ML Syringe FLUSH PRN (17:28)
[2021-02-24] MEDS ORDERED: Piperacillin/Tazobactam 4.5 GM in Sodium Chloride 0.9% 100 ML IV ONE (17:34)
[2021-02-24] MEDS ORDERED: Vancomycin 1.5 GM in Dextrose 5% in Water 250 ML IV ONE ×2 (17:34)
[2021-02-24] MEDS ORDERED: Pantoprazole 40 MG Vial IVPUSH ONE (18:13)
--- NOTE | 2021-02-25 09:00 | CT ---
CT abdomen and pelvis Technique: Multiple axial sections were obtained from above the dome of the diaphragm inferiorly through the pubic symphysis. Intravenous and oral contrast were not utilized. Reconstructed coronal and sagittal images were obtained. Findings: Visualized lung bases show nothing acute. Dense mitral annulus calcification is noted. Pacemaker is noted. Additional epicardial wires are seen. Noncontrast appearance of the liver shows no focal abnormality. Very minimal nodularity is noted within the surface of the liver. Small calcifications are seen within the central liver most likely dystrophic. Surgical clips seen from prior cholecystectomy. Spleen size is normal. Small hiatal hernia is present. Adrenal glands show no nodule. Pancreas shows no focal abnormality. Kidneys show no hydronephrosis. Multiple small nonobstructing calculi and vascular calcifications are seen within both kidneys. No ureteral dilatation or ureteral stone is seen. No bladder calculi are noted. Atherosclerotic calcification is seen within the aorta and iliac arteries. No aneurysm is seen. No retroperitoneal adenopathy or mesenteric abnormalities are seen. No pelvic mass or adenopathy is seen. Appendix is not definitely visualized. Scattered colonic diverticuli are seen with no findings of diverticulitis. Bone window settings were reviewed which show diffuse disc space narrowing and vacuum phenomena. Scoliosis is also noted with diffuse endplate osteophytes. Impression: 1. Small renal calculi with no ureteral dilatation or ureteral stone. 2. Slightly nodular surface contour of the liver. 3. Other findings as noted above which are believed to be nonacute. Diagnostic code #2 I agree with preliminary report from [facility], finalized on 02/24/21, 8:00 PM CDT, code 1
--- NOTE | 2021-02-26 17:57 | CR ---
Chest: Portable view of the chest was obtained. Comparison: Prior chest x-ray of 01/17/21. Bichamber pacemaker is noted. Sternotomy is noted for prosthetic valve. Lungs are clear with no acute parenchymal change. Heart is enlarged. Upper mediastinum is within normal limits. No acute osseous abnormality is appreciated. Impression: 1. Findings as described above. 2. Nothing acute is seen portable chest x-ray. Diagnostic code #2
== END 2021-02-24 20:00 ==
LOC: JD.ED 15:57
DX: A41.9 Sepsis, unspecified organism (principal); N30.00 Acute cystitis without hematuria; K92.2 Gastrointestinal hemorrhage, unspecified; E78.00 Pure hypercholesterolemia, unspecified; I10 Essential (primary) hypertension; I25.2 Old myocardial infarction; M19.90 Unspecified osteoarthritis, unspecified site; E11.9 Type 2 diabetes mellitus without complications; Z87.891 Personal history of nicotine dependence; Z88.1 Allergy status to other antibiotic agents; Z79.82 Long term (current) use of aspirin; Z79.899 Other long term (current) drug therapy; Z20.822 Contact with and (suspected) exposure to COVID-19
CPT/HCPCS: 36415; 71045; 74176; 80053; 81001; 83605; 85025; 85610; 85730; 87040; 87086; 87088; 87186; 94762; 96365; 96367; 96375; 99285; A9270; C9113; J2543; J3370; J7030; J7060; U0002; 99284

== ENCOUNTER 2021-05-05 18:23 | Inpatient (IN) | payer MEDICARE, OTHER ==
[2021-05-05] MEDS ORDERED: Acetaminophen 325 MG Tab PO STA (18:43)
[2021-05-05] MEDS ORDERED: Dextrose 5%-0.9% NaCl 1,000 ML IV SCH ×2 (18:45→19:30)
--- NOTE | 2021-05-05 18:46 | EDM.PDOC ---
<Natasha Sinha H - Last Filed: 05/05/21 23:15> ED HPI GENERAL MEDICAL PROBLEM - General Chief Complaint: Possible Sepsis Stated Complaint: [facility] Time Seen by Provider: 05/05/21 18:34 - Related Data Allergies Allergy/AdvReac Type Severity Reaction Status Date / Time cephalexin Allergy Cannot Verified 05/06/21 02:18 Remember Home Meds: Home Meds Amitriptyline [Elavil] 25 mg PO DAILY 01/04/21 [History] Donepezil [Aricept] 5 mg PO BEDTIME 01/04/21 [History] atenoloL [Atenolol] 25 mg PO DAILY 01/04/21 [History] predniSONE [Prednisone] 1 mg PO DAILY 01/04/21 [History] Levothyroxine [Synthroid] 50 mcg PO ACBREAKFAST 02/24/21 [History] Pantoprazole [ProTONIX] 40 mg PO BID 02/24/21 [History] Rosuvastatin Calcium 20 mg PO DAILY 02/24/21 [History] Cyanocobalamin (Vitamin B-12) [Vitamin B-12] 1,000 mcg PO DAILY 05/05/21 [History] Folic Acid 1 mg PO DAILY 05/05/21 [History] Insulin Glarg,Human.Rec.Analog [Lantus Solostar] 5 units SQ BEDTIME 05/05/21 [History] Insulin Lispro [Humalog] 7 units SQ TIDMEALS 05/05/21 [History] Loperamide HCl [Imodium A-D] 2 mg PO DAILY PRN 05/05/21 [History] Ondansetron [Zofran ODT] 4 mg PO QID PRN 05/05/21 [History] bisacodyL [Dulcolax] 10 mg RC DAILY PRN 05/05/21 [History] Albuterol Sulfate 2.5 mcg NEB Q4HR PRN 05/06/21 [History] Albuterol Sulfate [Proair Respiclick] 90 mcg IH Q4HR PRN 05/06/21 [History] levoFLOXacin [Levaquin] 750 mg PO Q48H 2 Days #2 tablet 05/08/21 [Rx] Course - Vital Signs Text/Narrative:: Patient's initial lactic acid was 3.7 and a repeat done 3 hours later was 3.2 after which he had been given a liter of fluid. Her initial troponin returned at 0.176 with her 3-hour troponin at 0.518. EKG shows no significant changes from previous and I did speak with Dr. Cervantes who is a aircraft stress analyst at [employer] in [place] who felt that this was most likely demand ischemia and recommend that we treat her sepsis and did recommend she get a full aspirin. He did have her current EKG in the previous one to compare. Patient's urine shows no sign of infection and her chest x-ray also shows no infiltrate. Her Covid screen was negative and her white blood cell count 5.5 with 77 neutrophils and 11 bands. Her CRP returned evaded at 1.9. With patient's initial fever of 101.5 I had treated her with 500 mg of Levaquin and after discussion with Dr. Hernandez hospitalist he recommends that we give her 1 g Vanco and also start her on Zosyn which I wrote for 3.5 g. He requested that she get 150 cc of normal saline per hour. I have ordered repeat lactate and CBC for the morning. Patient and family member are aware that she has been admitted. Vital signs have remained stable. Departure - Departure Time of Disposition: 23:18 Disposition: Admitted As Inpatient 64 Condition: Fair Clinical Impression: Systemic infection Sepsis Qualifiers: Sepsis type: sepsis due to unspecified organism Sepsis acute organ dysfunction status: unspecified Qualified Code(s): A41.9 - Sepsis, unspecified organism - Discharge Information <Raoul Bahena - Last Filed: 05/09/21 09:29> ED HPI GENERAL MEDICAL PROBLEM - General Source of Information: Reports: Patient, EMS History Limitations: Reports: Altered Mental Status (Easily confused) - History of Present Illness INITIAL COMMENTS - FREE TEXT/NARRATIVE: 76-year-old female is brought to the ED per [facility] due to not feeling well. Apparently she resides at [facility]. It is difficult to get a history from her since she has some confusion and disorientation. It is unclear who was in contact with her to recognize that she was ill. I do not believe she would be able to call 911 on her own behest. 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 Very difficult to get any useful history from the patient. She cannot member if she ate or drank yet today. She was unaware that she had a fever and she denies any chills. She denies cough or sputum production. She states she does have a frog in her throat and her voice is rather raspy. She denies any abdominal pain nausea vomiting or diarrhea and denies any genitourinary complaints. She denies any falls or injuries but again none of this can be clarified Onset: Unknown/Unsure (Unclear when she became ill.) Duration: Hour(s): Location: Reports: Generalized (Acute onset of fever and chills with generalized weakness decreased appetite) Quality: Reports: Other Severity: Moderate (Acute febrile illness.) Improves with: Reports: None Worsens with: Reports: None Context: Reports: Other (Patient lives in [facility] in her own suite and it is an assisted living program where they do looking on her and help with activities of daily living.). Denies: Activity, Exercise, Lifting, Sick Contact, Trauma Associated Symptoms: Reports: Confusion (I find that she is confused), Headaches, Loss of Appetite, Malaise, Shortness of Breath, Weakness. Denies: Chest Pain ( she is disoriented to time and place), Cough, cough w sputum, Diaphoresis, Fever/Chills, Nausea/Vomiting, Rash, Seizure, Syncope Treatments INPATIENT PHARMACIST: Reports: Other (see below) (Unsure if she has been given any medication for fever) Past Medical History HEENT History: Reports: Cataract, Hard of Hearing, Impaired Vision Cardiovascular History: Reports: Bypass, High Cholesterol, Hypertension, PR Respiratory History: Reports: SOB Gastrointestinal History: Reports: GI Bleed, PUD Genitourinary History: Reports: Urinary Incontinence, UTI, Recurrent [employer] History: Reports: Musculoskeletal History: Reports: Arthritis Neurological History: Reports: Migraines Psychiatric History: Reports: None Endocrine/Metabolic History: Reports: Diabetes, Type II Hematologic History: Reports: Anemia Other Hematologic History: antibodies in blood Immunologic History: Reports: None Oncologic (Cancer) History: Reports: None Dermatologic History: Reports: None - Infectious Disease History Infectious Disease History: Reports: Chicken Pox - Past Surgical History HEENT Surgical History: Reports: Cataract Surgery Cardiovascular Surgical History: Reports: Coronary Artery Bypass Musculoskeletal Surgical History: Reports: Carpal Tunnel Social & Family History - Family History Family Medical History: No Pertinent Family History - Caffeine Use Caffeine Use: Reports: Coffee - Living Situation & Occupation Living situation: Reports: Occupation: Retired ED ROS GENERAL - Review of Systems Review Of Systems: See Below Reason Not Obtained: History obtained from the patient is taken with a grain of salt a Constitutional: Reports: Malaise, Weakness, Fatigue, Decreased Appetite HEENT: Reports: Glasses, Hearing Loss Respiratory: Denies: Shortness of Breath, Wheezing, Pleuritic Chest Pain, Cough, Sputum Cardiovascular: Reports: Blood Pressure Problem, Dyspnea on Exertion. 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 Nurses recorded temperature of 38.6 degrees rectally. Heart rate is 82 and sinus respiratory 16 with O2 sats of 95% room air BP 165/63) Eye Exam: Bilateral Eye: Normal Inspection (Very mild blepharal pallor no scleral icterus), PERRL (No gaze palsy) Ears: Normal TMs Nose: Normal Inspection Throat/Mouth: Pharyngeal Erythema (Mild), Other (Tongue is dry and coated and beefy red). No: Tongue Swelling, Tonsillar Erythema, Tonsillar Exudate Head: Atraumatic, Normocephalic, Other (No outward signs of any head or facial trauma) Neck: Non-Tender. No: Carotid Bruit, Lymphadenopathy (L), Lymphadenopathy (R) Respiratory/Chest: No Respiratory Distress, Decreased Breath Sounds (Decreased air air entry to the posterior 20% of lung heath bilaterally.), Rales. No: Normal Breath Sounds, Rhonchi ( Scattered rales both lower lobes), Wheezing Cardiovascular: Regular Rate, Rhythm, No Edema, No Gallop, No Murmur, No Rub Peripheral Pulses: 1+: Posterior Tibial (L), Posterior Tibial (R), Dorsalis Pedis (L), Dorsalis Pedis (R), 2+: Carotid (L), Carotid (R) GI/Abdominal Exam: Normal Bowel Sounds, Soft, Non-Tender, No Organomegaly, No Abnormal Bruit, No Mass, Pelvis Stable, Other (Trocar scars suggest laparoscopic cholecystectomy and she indicates that she is also had an appendectomy. She is wearing a depends.) Extremities: Normal Inspection, Non-Tender, No Pedal Edema, Other (Minutes of osteoarthritic changes both knees with very limited internal and external rotation of both hips. She also has pain in both shoulders with attempt to abduct past 70 degrees right worse than left) Neurological: CN II-XII Intact, No Motor/Sensory Deficits (Move all limbs with no focal neurological deficit). No: Oriented (Disoriented to time and place), Normal Cognition, Normal Gait (Not evaluated) Psychiatric: Normal Affect, Normal Mood Skin: Dry, Intact, Normal Color, No Rash, Other (Patient has markedly febrile on exam) #1 Interpretation EKG Date: 05/05/21 Time: 18:53 Rhythm: NSR Rate (Beats/Min): 78 [place]: Normal P-Wave: Present (Left atrial hypertrophy pattern first-degree AV block) QRS: Other (Q waves V1 to V3 compared with old anteroseptal myocardial infarction. There is a left ventricular perjury pattern with repolarization abnormality) ST-T: Other (T wave inversion aVL and slightly in lead I as well.) QT: Normal EKG Interpretation Comments: Abnormal ECG Course - Vital Signs Last Recorded V/S: Last Vital Signs Temp 36.8 C 05/08/21 07:57 Pulse 60 05/08/21 08:16 Resp 16 05/08/21 07:57 BP 158/98 H 05/08/21 08:16 Pulse Ox 92 L 05/08/21 09:00 - Orders/Labs/Meds Labs: Laboratory Tests 05/05/21 05/05/21 05/05/21 Range/Units 18:36 18:36 18:36 WBC 5.51 (3.98-10.04) K/mm3 RBC 3.54 L (3.98-5.22) M/mm3 Hgb 10.7 L (11.2-15.7) gm/dl Hct 34.8 (34.1-44.9) % MCV 98.3 H D (79.4-94.8) fl MCH 30.2 (25.6-32.2) pg MCHC 30.7 L (32.2-35.5) g/dl RDW Std Deviation 54.9 H (36.4-46.3) fL Plt Count 98 L (182-369) K/mm3 MPV 10.8 (9.4-12.3) fl Neutrophils % (Manual) 77 H (40-60) % Band Neutrophils % 0 (0-10) % Lymphocytes % (Manual) 11 L (20-40) % Atypical Lymphs % 2 % Monocytes % (Manual) 6 (2-10) % Eosinophils % (Manual) 4 (0.7-5.8) % Basophils % (Manual) 0 L (0.1-1.2) Platelet Estimate Decreased Plt Morphology Comment See note Hypochromasia 1+ slight Anisocytosis 1+ slight Macrocytosis 1+ slight Ovalocytes 1+ slight RBC Morph Comment Normal ESR (0-20) mm/hr PT 11.5 (9.7-12.0) SECONDS INR 1.04 APTT 27.1 (21.7-31.4) SECONDS Sodium 137 (136-145) mEq/L Potassium 3.8 (3.5-5.1) mEq/L Chloride 98 (98-107) mEq/L Carbon Dioxide 24 (21-32) mEq/L Anion Gap 18.8 H (5-15) BUN 10 (7-18) mg/dL Creatinine 0.9 (0.55-1.02) mg/dL Est Cr Clr Drug Dosing 40.74 mL/min Estimated GFR (MDRD) > 60 (>60) mL/min BUN/Creatinine Ratio 11.1 L (14-18) Glucose 126 H (70-99) mg/dL Lactic Acid (0.4-2.0) mmol/L Calcium 8.2 L (8.5-10.1) mg/dL Magnesium 1.3 L (1.8-2.4) mg/dL Total Bilirubin 0.7 (0.2-1.0) mg/dL AST 30 (15-37) U/L ALT 19 (14-59) U/L Alkaline Phosphatase 54 (46-116) U/L Lactate Dehydrogenase 239 H (81-234) U/L Troponin I 0.176 H* (0.00-0.056) ng/mL C-Reactive Protein 1.9 H* (<1.0) mg/dL NT-Pro-B Natriuret Pep (0-450) pg/mL Total Protein 6.8 (6.4-8.2) g/dl Albumin 3.1 L (3.4-5.0) g/dl Globulin 3.7 gm/dL Albumin/Globulin Ratio 0.8 L (1-2) Procalcitonin ng/mL TSH 3rd Generation (0.358-3.74) uIU/mL Urine Color (Yellow) Urine Appearance (Clear) Urine pH (5.0-8.0) Ur Specific [place] (1.005-1.030) Urine Protein (Negative) Urine Glucose (UA) (Negative) Urine Ketones (Negative) Urine Occult Blood (Negative) Urine Nitrite (Negative) Urine Bilirubin (Negative) Urine Urobilinogen (0.2-1.0) Ur Leukocyte Esterase (Negative) U Hyaline Cast (Auto) (0-5) /lpf Urine RBC (0-5) /hpf Urine WBC (0-5) /hpf Ur Squamous Epith Cells (0-5) /hpf Urine Bacteria (FEW) /hpf Urine Mucus (FEW) /hpf SARS-CoV-2 RNA (DORA) (NEGATIVE) 05/05/21 05/05/21 05/05/21 Range/Units 18:36 18:36 18:36 WBC (3.98-10.04) K/mm3 RBC (3.98-5.22) M/mm3 Hgb (11.2-15.7) gm/dl Hct (34.1-44.9) % MCV (79.4-94.8) fl MCH (25.6-32.2) pg MCHC (32.2-35.5) g/dl RDW Std Deviation (36.4-46.3) fL Plt Count (182-369) K/mm3 MPV (9.4-12.3) fl Neutrophils % (Manual) (40-60) % Band Neutrophils % (0-10) % Lymphocytes % (Manual) (20-40) % Atypical Lymphs % % Monocytes % (Manual) (2-10) % Eosinophils % (Manual) (0.7-5.8) % Basophils % (Manual) (0.1-1.2) Platelet Estimate Plt Morphology Comment Hypochromasia Anisocytosis Macrocytosis Ovalocytes RBC Morph Comment ESR 34 H (0-20) mm/hr PT (9.7-12.0) SECONDS INR APTT (21.7-31.4) SECONDS Sodium (136-145) mEq/L Potassium (3.5-5.1) mEq/L Chloride (98-107) mEq/L Carbon Dioxide (21-32) mEq/L Anion Gap (5-15) BUN (7-18) mg/dL Creatinine (0.55-1.02) mg/dL Est Cr Clr Drug Dosing mL/min Estimated GFR (MDRD) (>60) mL/min BUN/Creatinine Ratio (14-18) Glucose (70-99) mg/dL Lactic Acid 3.7 H* (0.4-2.0) mmol/L Calcium (8.5-10.1) mg/dL Magnesium (1.8-2.4) mg/dL Total Bilirubin (0.2-1.0) mg/dL AST (15-37) U/L ALT (14-59) U/L Alkaline Phosphatase (46-116) U/L Lactate Dehydrogenase (81-234) U/L Troponin I (0.00-0.056) ng/mL C-Reactive Protein (<1.0) mg/dL NT-Pro-B Natriuret Pep (0-450) pg/mL Total Protein (6.4-8.2) g/dl Albumin (3.4-5.0) g/dl Globulin gm/dL Albumin/Globulin Ratio (1-2) Procalcitonin ng/mL TSH 3rd Generation 0.511 (0.358-3.74) uIU/mL Urine Color (Yellow) Urine Appearance (Clear) Urine pH (5.0-8.0) Ur Specific [place] (1.005-1.030) Urine Protein (Negative) Urine Glucose (UA) (Negative) Urine Ketones (Negative) Urine Occult Blood (Negative) Urine Nitrite (Negative) Urine Bilirubin (Negative) Urine Urobilinogen (0.2-1.0) Ur Leukocyte Esterase (Negative) U Hyaline Cast (Auto) (0-5) /lpf Urine RBC (0-5) /hpf Urine WBC (0-5) /hpf Ur Squamous Epith Cells (0-5) /hpf Urine Bacteria (FEW) /hpf Urine Mucus (FEW) /hpf SARS-CoV-2 RNA (DORA) (NEGATIVE) 05/05/21 05/05/21 05/05/21 Range/Units 18:36 18:49 19:10 WBC (3.98-10.04) K/mm3 RBC (3.98-5.22) M/mm3 Hgb (11.2-15.7) gm/dl Hct (34.1-44.9) % MCV (79.4-94.8) fl MCH (25.6-32.2) pg MCHC (32.2-35.5) g/dl RDW Std Deviation (36.4-46.3) fL Plt Count (182-369) K/mm3 MPV (9.4-12.3) fl Neutrophils % (Manual) (40-60) % Band Neutrophils % (0-10) % Lymphocytes % (Manual) (20-40) % Atypical Lymphs % % Monocytes % (Manual) (2-10) % Eosinophils % (Manual) (0.7-5.8) % Basophils % (Manual) (0.1-1.2) Platelet Estimate Plt Morphology Comment Hypochromasia Anisocytosis Macrocytosis Ovalocytes RBC Morph Comment ESR (0-20) mm/hr PT (9.7-12.0) SECONDS INR APTT (21.7-31.4) SECONDS Sodium (136-145) mEq/L Potassium (3.5-5.1) mEq/L Chloride (98-107) mEq/L Carbon Dioxide (21-32) mEq/L Anion Gap (5-15) BUN (7-18) mg/dL Creatinine (0.55-1.02) mg/dL Est Cr Clr Drug Dosing mL/min Estimated GFR (MDRD) (>60) mL/min BUN/Creatinine Ratio (14-18) Glucose (70-99) mg/dL Lactic Acid (0.4-2.0) mmol/L Calcium (8.5-10.1) mg/dL Magnesium (1.8-2.4) mg/dL Total Bilirubin (0.2-1.0) mg/dL AST (15-37) U/L ALT (14-59) U/L Alkaline Phosphatase (46-116) U/L Lactate Dehydrogenase (81-234) U/L Troponin I (0.00-0.056) ng/mL C-Reactive Protein (<1.0) mg/dL NT-Pro-B Natriuret Pep 2104 H (0-450) pg/mL Total Protein (6.4-8.2) g/dl Albumin (3.4-5.0) g/dl Globulin gm/dL Albumin/Globulin Ratio (1-2) Procalcitonin 0.20 H ng/mL TSH 3rd Generation (0.358-3.74) uIU/mL Urine Color (Yellow) Urine Appearance (Clear) Urine pH (5.0-8.0) Ur Specific [place] (1.005-1.030) Urine Protein (Negative) Urine Glucose (UA) (Negative) Urine Ketones (Negative) Urine Occult Blood (Negative) Urine Nitrite (Negative) Urine Bilirubin (Negative) Urine Urobilinogen (0.2-1.0) Ur Leukocyte Esterase (Negative) U Hyaline Cast (Auto) (0-5) /lpf Urine RBC (0-5) /hpf Urine WBC (0-5) /hpf Ur Squamous Epith Cells (0-5) /hpf Urine Bacteria (FEW) /hpf Urine Mucus (FEW) /hpf SARS-CoV-2 RNA (DORA) Negative (NEGATIVE) 05/05/21 05/05/21 05/05/21 Range/Units 19:36 21:47 22:05 WBC (3.98-10.04) K/mm3 RBC (3.98-5.22) M/mm3 Hgb (11.2-15.7) gm/dl Hct (34.1-44.9) % MCV (79.4-94.8) fl MCH (25.6-32.2) pg MCHC (32.2-35.5) g/dl RDW Std Deviation (36.4-46.3) fL Plt Count (182-369) K/mm3 MPV (9.4-12.3) fl Neutrophils % (Manual) (40-60) % Band Neutrophils % (0-10) % Lymphocytes % (Manual) (20-40) % Atypical Lymphs % % Monocytes % (Manual) (2-10) % Eosinophils % (Manual) (0.7-5.8) % Basophils % (Manual) (0.1-1.2) Platelet Estimate Plt Morphology Comment Hypochromasia Anisocytosis Macrocytosis Ovalocytes RBC Morph Comment ESR (0-20) mm/hr PT (9.7-12.0) SECONDS INR APTT (21.7-31.4) SECONDS Sodium (136-145) mEq/L Potassium (3.5-5.1) mEq/L Chloride (98-107) mEq/L Carbon Dioxide (21-32) mEq/L Anion Gap (5-15) BUN (7-18) mg/dL Creatinine (0.55-1.02) mg/dL Est Cr Clr Drug Dosing mL/min Estimated GFR (MDRD) (>60) mL/min BUN/Creatinine Ratio (14-18) Glucose (70-99) mg/dL Lactic Acid 3.2 H* (0.4-2.0) mmol/L Calcium (8.5-10.1) mg/dL Magnesium (1.8-2.4) mg/dL Total Bilirubin (0.2-1.0) mg/dL AST (15-37) U/L ALT (14-59) U/L Alkaline Phosphatase (46-116) U/L Lactate Dehydrogenase (81-234) U/L Troponin I 0.518 H* (0.00-0.056) ng/mL C-Reactive Protein (<1.0) mg/dL NT-Pro-B Natriuret Pep (0-450) pg/mL Total Protein (6.4-8.2) g/dl Albumin (3.4-5.0) g/dl Globulin gm/dL Albumin/Globulin Ratio (1-2) Procalcitonin ng/mL TSH 3rd Generation (0.358-3.74) uIU/mL Urine Color Yellow (Yellow) Urine Appearance Clear (Clear) Urine pH 5.5 (5.0-8.0) Ur Specific [place] 1.025 (1.005-1.030) Urine Protein Trace H (Negative) Urine Glucose (UA) Negative (Negative) Urine Ketones 1+ H (Negative) Urine Occult Blood Negative (Negative) Urine Nitrite Negative (Negative) Urine Bilirubin Negative (Negative) Urine Urobilinogen 0.2 (0.2-1.0) Ur Leukocyte Esterase Negative (Negative) U Hyaline Cast (Auto) 5-10 H (0-5) /lpf Urine RBC 0-5 (0-5) /hpf Urine WBC 0-5 (0-5) /hpf Ur Squamous Epith Cells 0-5 (0-5) /hpf Urine Bacteria Few (FEW) /hpf Urine Mucus Many H (FEW) /hpf SARS-CoV-2 RNA (DORA) (NEGATIVE) Meds: Medications Discontinued Medications Generic Name Dose Route Start Last Admin Trade Name Freq PRN Reason Stop Dose Admin Acetaminophen 650 mg 05/05/21 18:43 05/05/21 19:19 Acetaminophen 325 Mg Tab PO 05/05/21 18:44 650 mg NOW STA Administration Acetaminophen 650 mg 05/06/21 00:18 05/08/21 03:01 Acetaminophen 325 Mg Tab PO 650 mg Q4H PRN Administration Pain/Fever Albuterol 2.5 mg 05/06/21 09:06 Albuterol 0.083% 2.5 Mg/3 Ml Neb Soln NEB Q4HR PRN wheeze Albuterol 0 gm 05/06/21 09:06 Albuterol 6.7 Gm Inhaler INH Q4H PRN Cough Amitriptyline HCl 25 mg 05/07/21 09:00 Amitriptyline 25 Mg Tab PO DAILY NOREEN Amitriptyline HCl 25 mg 05/06/21 21:00 05/07/21 20:51 Amitriptyline 25 Mg Tab PO 25 mg BEDTIME NOREEN Administration Aspirin 324 mg 05/05/21 23:14 05/05/21 23:20 Aspirin 81 Mg Tab.Chew PO 05/05/21 23:15 324 mg ONETIME ONE Administration Atenolol 25 mg 05/06/21 09:15 05/08/21 08:16 Atenolol 25 Mg Tab PO 25 mg DAILY NOREEN Administration Bisacodyl 10 mg 05/06/21 09:06 Bisacodyl 10 Mg Supp RECTAL DAILY PRN Constipation Enoxaparin Sodium 40 mg 05/07/21 09:00 Enoxaparin 40 Mg/0.4 Ml Syringe SUBCUT DAILY NOREEN Folic Acid 1 mg 05/07/21 09:00 05/08/21 08:16 Folic Acid 1 Mg Tab PO 1 mg DAILY NOREEN Administration Dextrose/Sodium Chloride 1,000 mls @ 150 mls/hr 05/05/21 18:45 05/05/21 19:19 Dextrose 5%-Normal Saline IV 150 mls/hr ASDIRECTED NOREEN Administration Dextrose/Sodium Chloride 1,000 mls @ 999 mls/hr 05/05/21 19:30 Dextrose 5%-Normal Saline IV ASDIRECTED NOREEN Levofloxacin/Dextrose 500 mg/ 100 mls @ 100 mls/hr 05/05/21 20:10 05/05/21 20:24 Premix IV 05/05/21 21:09 100 mls/hr ONETIME ONE Administration Sodium Chloride 1,000 mls @ 150 mls/hr 05/06/21 00:30 05/06/21 01:22 MDT Normal Saline IV 150 mls/hr ASDIRECTED NOREEN Administration Piperacillin Sod/Tazobactam 100 mls @ 200 mls/hr 05/06/21 00:17 05/06/21 10:30 Sod 3.5 gm/ Sodium Chloride IV 05/06/21 00:46 200 mls/hr ONETIME ONE Administration Vancomycin HCl 1 gm/ Sodium 250 mls @ 250 mls/hr 05/06/21 00:17 05/06/21 01:55 MDT Chloride IV 05/06/21 01:16 MST 250 mls/hr ONETIME ONE Administration Piperacillin Sod/Tazobactam 78 mls @ 156 mls/hr 05/06/21 01:30 MST 05/06/21 01:52 MST Sod 3.5 gm/ Sodium Chloride IV 05/06/21 01:59 MST Not Given ONETIME ONE Piperacillin Sod/Tazobactam 100 mls @ 25 mls/hr 05/06/21 18:00 05/08/21 10:03 Sod 4.5 gm/ Sodium Chloride IV 25 mls/hr Q8H NOREEN Administration Piperacillin Sod/Tazobactam 100 mls @ 200 mls/hr 05/06/21 10:00 05/06/21 10:15 Sod 4.5 gm/ Sodium Chloride IV 05/06/21 10:29 200 mls/hr ONETIME ONE Administration Vancomycin HCl 1 gm/ Sodium 250 mls @ 250 mls/hr 05/06/21 21:00 05/06/21 21:56 Chloride IV 250 mls/hr Q24H NOREEN Administration Magnesium Sulfate 4 gm/ Premix 50 mls @ 12.5 mls/hr 05/06/21 11:49 05/06/21 12:21 IV 05/06/21 15:48 12.5 mls/hr ONETIME ONE Administration Ibuprofen 400 mg 05/06/21 00:19 Ibuprofen 400 Mg Tab PO Q6H PRN Pain/Fever Insulin Glargine 5 unit 05/06/21 21:00 05/07/21 20:43 Insulin Glargine,Hum.Rec.Anlog 100 Unit/Ml 3 Ml Pen SUBCUT 5 units BEDTIME NOREEN Administration Insulin Human Lispro 0 unit 05/06/21 17:00 05/08/21 11:55 Insulin Lispro 100 Unit/Ml 3 Ml Kwikpen SUBCUT Not Given [facility]IDACANDBED [facility] Protocol Levofloxacin 750 mg 05/07/21 21:00 05/07/21 20:50 Levofloxacin 750 Mg Tab PO 05/09/21 21:01 750 mg Q48H NOREEN Administration Levothyroxine Sodium 50 mcg 05/07/21 06:00 05/08/21 05:48 Levothyroxine 50 Mcg Tab PO 50 mcg ACBREAKFAST NOREEN Administration Loperamide HCl 2 mg 05/06/21 09:06 Loperamide 2 Mg Cap PO DAILY PRN Constipation Magnesium Hydroxide 30 ml 05/08/21 09:00 05/08/21 08:17 Magnesium Hydroxide 400 Mg/5 Ml Susp 30 Ml Cup PO 05/08/21 09:01 Not Given ONETIME ONE Magnesium Oxide 400 mg 05/06/21 21:00 05/08/21 08:16 Magnesium Oxide 400 Mg Tab PO 400 mg BID NOREEN Administration Nystatin 500,000 ml 05/06/21 15:00 05/06/21 17:10 Nystatin Susp 100,000 Unit/Ml 5 Ml Ud Cup PO Not Given TID NOREEN Nystatin 5 ml 05/07/21 09:00 05/08/21 08:15 Nystatin Susp 100,000 Unit/Ml 5 Ml Ud Cup PO 5 ml TID NOREEN Administration Ondansetron HCl 4 mg 05/06/21 09:06 Ondansetron 4 Mg Tab.Dis PO QID PRN Nausea Pantoprazole Sodium 40 mg 05/06/21 09:15 05/08/21 05:48 Pantoprazole 40 Mg Tab.Cr PO 40 mg BID@0600,2100 NOREEN Administration Potassium Chloride 40 meq 05/08/21 07:26 05/08/21 08:16 Potassium Chloride 20 Meq Tab.Er PO 05/08/21 07:27 40 meq ONETIME ONE Administration Prednisone 1 mg 05/07/21 09:00 05/08/21 08:16 Prednisone 1 Mg Tab PO 1 mg DAILY NOREEN Administration Rosuvastatin Calcium 20 mg 05/07/21 21:00 05/07/21 20:50 Rosuvastatin 10 Mg Tab PO 20 mg BEDTIME NOREEN Administration Temazepam 15 mg 05/08/21 02:51 05/08/21 03:02 Temazepam 15 Mg Cap PO 15 mg BEDTIME NOREEN Administration Vancomycin HCl 1 dose 05/06/21 09:15 Pharmacy To Dose - Vancomycin .XX ASDIRECTED PRN RX TO DOSE VANCO - Radiology Interpretation Free Text/Narrative:: 76-year-old female attends the ED by [facility] from [facility] where she resides. This is an assisted living center. It is unclear whom recognized that she was not doing well. She is markedly febrile on exam and apparently just became ill over the last 24 hours but this is cannot be clarified. 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 She denies having any pain. She states that she does have a headache. It is unclear for sure whether she has received a COVID-19 vaccinations and/or booster shot. Examination reveals her to be markedly febrile. Her tongue is dry and coated suggesting she has not ate or drank well today. She has a few rales both lower lobes of her lungs posteriorly with decreased air entry. No wheezing identified. Benign abdominal examination. She does wear depends. There are no outward signs of trauma to any of her extremities or back face or head. Plan septic work-up will be started. This will include a COVID-19 screen. Chest x- ray and urinalysis by catheterization. She was given Tylenol 650 mg p.o. for fever relief. IV will be D5 normal saline at 150 mils per hour. Current blood pressure is 154/88. - Re-Assessments/Exams Free Text/Narrative Re-Assessment/Exam: 05/05/21 19:22 care will be transferred to Dr. Sinha since it is change of shift. I was just given a handheld note from the lab indicating that the troponin I came back elevated at 0.176 and a lactic acid is 3.7. I have placed a reflex lactic acid order in 3 hours time. I will open her IV which is D5 normal saline to full at this time. Sepsis Event Note (ED) - Evaluation Sepsis Screening Result: No Definite Risk
[2021-05-05] MEDS ORDERED: Levofloxacin/Dextrose 5%-Water 500 MG in Premix Bag 1 BAG IV ONE (20:10)
[2021-05-05] MEDS ORDERED: Aspirin 81 MG Tab.Chew PO ONE (23:14)
[2021-05-06] MEDS ORDERED: Acetaminophen 325 MG Tab PO PRN (00:18)
[2021-05-06] MEDS ORDERED: Ibuprofen 400 MG Tab PO PRN (00:19)
[2021-05-06] MEDS ORDERED: Sodium Chloride 0.9% 1,000 ML IV SCH (00:30)
[2021-05-06] MEDS: SODIUM CHLORIDE 0.9% IV ONE ×5 (01:22→10:30)
[2021-05-06] MEDS: PIPERACILLIN IV ONE ×5 (01:22→10:30)
[2021-05-06] MEDS: TAZOBACTAM IV ONE ×5 (01:22→10:30)
--- NOTE | 2021-05-06 05:46 | CR ---
Chest: Portable view of the chest was obtained. Comparison: Prior chest x-ray of 02/24/21. Heart size is slightly prominent in size. Slight atherosclerotic calcification is seen within the thoracic aorta which otherwise appears within normal limits. 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 Pacemaker is noted. Lungs are clear with no acute parenchymal change. Bony structures show nothing acute. Carotid artery calcification is noted. Impression: 1. Findings as described above. 2. Nothing acute is appreciated on portable chest x-ray. Diagnostic code #2
--- NOTE | 2021-05-06 09:04 | PCM.HP.2 ---
H&P History of Present Illness - General Date of Service: 05/06/21 Admit Problem/Dx: Admission Diagnosis/Problem Admission Diagnosis/Problem Sepsis - History of Present Illness Initial Comments - Free Text/Narative: 76-year-old female brought in to the emergency department by ambulance from her residence at [facility]. Patient is a fairly poor historian, but it appears that she was feeling poorly, dizzy, and disoriented. She was found in the emergency department to be feverish with a temperature of 101.5, initial respiratory rate of 16 that did go up to 22, heart rate of 74, normal WBC of 5.5 with 77% neutrophils and no bandemia. Lactic acid of 3.8 and platelets of 98,000, Patient was felt to be septic. She was given IV bolus and started on IV fluids of 150 mL/h. She was started on Levaquin, Zosyn, and vancomycin. Blood cultures were obtained. Lactic acidosis did resolve within 6 hours of initial lactic acid. Overnight patient had an uneventful night. Her confusion appears to have improved although she still cloudy on many aspects. Patient states that she was hospitalized at [facility] in [place] for lactic acidosis. She was admitted for approximately 1 week. We do not have those records. 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 She believes she got the new valve in 2014. Review of her old records does show that she was here in the end of January of this year. She had a UTI that grew out E. coli and sepsis with a lactic acid of 6.3. She was transferred to [facility] in [place]. - Related Data Allergies/Adverse Reactions: Allergies Allergy/AdvReac Type Severity Reaction Status Date / Time cephalexin Allergy Cannot Verified 05/06/21 02:18 Remember Home Medications: Home Meds Amitriptyline [Elavil] 25 mg PO DAILY 01/04/21 [History] Donepezil [Aricept] 5 mg PO BEDTIME 01/04/21 [History] atenoloL [Atenolol] 25 mg PO DAILY 01/04/21 [History] predniSONE [Prednisone] 1 mg PO DAILY 01/04/21 [History] Levothyroxine [Synthroid] 50 mcg PO ACBREAKFAST 02/24/21 [History] Pantoprazole [ProTONIX] 40 mg PO BID 02/24/21 [History] Rosuvastatin Calcium 20 mg PO DAILY 02/24/21 [History] Cyanocobalamin (Vitamin B-12) [Vitamin B-12] 1,000 mcg PO DAILY 05/05/21 [History] Folic Acid 1 mg PO DAILY 05/05/21 [History] Insulin Glarg,Human.Rec.Analog [Lantus Solostar] 5 units SQ BEDTIME 05/05/21 [History] Insulin Lispro [Humalog] 7 units SQ TIDMEALS 05/05/21 [History] Loperamide HCl [Imodium A-D] 2 mg PO DAILY PRN 05/05/21 [History] Nitrofurantoin Monohyd/M-Cryst [Macrobid 100 mg Capsule] 100 mg PO BID 05/05/21 [History] Ondansetron [Zofran ODT] 4 mg PO QID PRN 05/05/21 [History] bisacodyL [Dulcolax] 10 mg RC DAILY PRN 05/05/21 [History] Albuterol Sulfate 2.5 mcg NEB Q4HR PRN 05/06/21 [History] Albuterol Sulfate [Proair Respiclick] 90 mcg IH Q4HR PRN 05/06/21 [History] Past Medical History HEENT History: Reports: Cataract, Hard of Hearing, Impaired Vision, Other (See Below) Other HEENT History: pt reports that she normally wears glasses but doesn't have them here with her. she states that she has hearing aides at home however they don't work so she does not wear them anymore. has an upper plate in place she states. 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: Musculoskeletal History: Reports: Arthritis Neurological History: Reports: Migraines Psychiatric History: Reports: None Endocrine/Metabolic History: Reports: Diabetes, Type II, Obesity/BMI 30+ Hematologic History: Reports: Anemia Other Hematologic History: antibodies in blood Immunologic History: Reports: None Oncologic (Cancer) History: Reports: None Dermatologic History: Reports: None - Infectious Disease History Infectious Disease History: Reports: Chicken Pox, Measles, Mumps - Past Surgical History HEENT Surgical History: Reports: Cataract Surgery Cardiovascular Surgical History: Reports: Coronary Artery Bypass Respiratory Surgical History: Reports: None Female Surgical History: Reports: None Endocrine Surgical History: Reports: None Neurological Surgical History: Reports: None Musculoskeletal Surgical History: Reports: Carpal Tunnel Social & Family History - Family History Family Medical History: No Pertinent Family History - Tobacco Use Tobacco Use Status *Q: Former Tobacco User Years of Tobacco use: 27 Packs/Tins Daily: 2 Used Tobacco, but Quit: No Second Hand Smoke Exposure: No - Caffeine Use Caffeine Use: Reports: Soda Other Caffeine Use: 2-3 pops a day - Living Situation & Occupation Living situation: Reports: Occupation: Retired H&P Review of Systems - Review of Systems: Review Of Systems: Comprehensive ROS is negative, except as noted in HPI. Exam - Exam Exam: See Below - Vital Signs Vital Signs: Last Vital Signs Temp 97.9 F 05/06/21 05:23 Pulse 67 05/06/21 05:23 Resp 20 05/06/21 05:23 BP 137/79 05/06/21 05:23 Pulse Ox 97 05/06/21 05:23 Weight: 136 lb - Exam General: Alert, Oriented HEENT: Conjunctiva Clear, Hearing Intact, Mucosa Moist & [place] (White discharge on her lips and tongue), Normal Nasal Septum, Posterior Pharynx Clear Neck: Supple, Trachea Midline, 2 Lungs: Normal Respiratory Effort, Crackles (Minimal bibasilar crackles otherwise clear) Cardiovascular: Regular Rate, Regular Rhythm GI/Abdominal Exam: Normal Bowel Sounds, Soft, Non-Tender, No Organomegaly, No Distention, No Abnormal Bruit, No Mass Extremities: Normal Inspection, Normal Range of Motion, Non-Tender, No Pedal Edema, Normal Capillary Refill Skin: Warm, Dry, Intact Neuro Extensive - Mental Status: Alert, Oriented x3, Normal Mood/Affect, Normal Cognition, Memory Intact Neuro Extensive - Motor, Sensory, Reflexes: CN II-XII Intact Psychiatric: Alert, Normal Affect, Normal Mood - Patient Data Lab Results Last 24 hrs: Laboratory Results - last 24 hr 05/05/21 05/05/21 05/05/21 Range/Units 18:36 18:36 18:36 WBC 5.51 (3.98-10.04) K/mm3 RBC 3.54 L (3.98-5.22) M/mm3 Hgb 10.7 L (11.2-15.7) gm/dl Hct 34.8 (34.1-44.9) % MCV 98.3 H D (79.4-94.8) fl MCH 30.2 (25.6-32.2) pg MCHC 30.7 L (32.2-35.5) g/dl RDW Std Deviation 54.9 H (36.4-46.3) fL Plt Count 98 L (182-369) K/mm3 MPV 10.8 (9.4-12.3) fl Neut % (Auto) (34.0-71.1) % Lymph % (Auto) (19.3-51.7) % Pickett % (Auto) (4.7-12.5) % Eos % (Auto) (0.7-5.8) Baso % (Auto) (0.1-1.2) % Neut # (Auto) (1.56-6.13) K/mm3 Lymph # (Auto) (1.18-3.74) K/mm3 Pickett # (Auto) (0.24-0.36) K/mm3 Eos # (Auto) (0.04-0.36) K/mm3 Baso # (Auto) (0.01-0.08) K/mm3 Neutrophils % (Manual) 77 H (40-60) % Band Neutrophils % 0 (0-10) % Lymphocytes % (Manual) 11 L (20-40) % Atypical Lymphs % 2 % Monocytes % (Manual) 6 (2-10) % Eosinophils % (Manual) 4 (0.7-5.8) % Basophils % (Manual) 0 L (0.1-1.2) Manual Slide Review Platelet Estimate Decreased Plt Morphology Comment See note Hypochromasia 1+ slight Anisocytosis 1+ slight Macrocytosis 1+ slight Ovalocytes 1+ slight RBC Morph Comment Normal ESR (0-20) mm/hr PT 11.5 (9.7-12.0) SECONDS INR 1.04 APTT 27.1 (21.7-31.4) SECONDS Sodium 137 (136-145) mEq/L Potassium 3.8 (3.5-5.1) mEq/L Chloride 98 (98-107) mEq/L Carbon Dioxide 24 (21-32) mEq/L Anion Gap 18.8 H (5-15) BUN 10 (7-18) mg/dL Creatinine 0.9 (0.55-1.02) mg/dL Est Cr Clr Drug Dosing 40.74 mL/min Estimated GFR (MDRD) > 60 (>60) mL/min BUN/Creatinine Ratio 11.1 L (14-18) Glucose 126 H (70-99) mg/dL Lactic Acid (0.4-2.0) mmol/L Calcium 8.2 L (8.5-10.1) mg/dL Magnesium 1.3 L (1.8-2.4) mg/dL Total Bilirubin 0.7 (0.2-1.0) mg/dL AST 30 (15-37) U/L ALT 19 (14-59) U/L Alkaline Phosphatase 54 (46-116) U/L Lactate Dehydrogenase 239 H (81-234) U/L Troponin I 0.176 H* (0.00-0.056) ng/mL C-Reactive Protein 1.9 H* (<1.0) mg/dL NT-Pro-B Natriuret Pep (0-450) pg/mL Total Protein 6.8 (6.4-8.2) g/dl Albumin 3.1 L (3.4-5.0) g/dl Globulin 3.7 gm/dL Albumin/Globulin Ratio 0.8 L (1-2) Procalcitonin ng/mL TSH 3rd Generation (0.358-3.74) uIU/mL Urine Color (Yellow) Urine Appearance (Clear) Urine pH (5.0-8.0) Ur Specific [facility] (1.005-1.030) Urine Protein (Negative) Urine Glucose (UA) (Negative) Urine Ketones (Negative) Urine Occult Blood (Negative) Urine Nitrite (Negative) Urine Bilirubin (Negative) Urine Urobilinogen (0.2-1.0) Ur Leukocyte Esterase (Negative) U Hyaline Cast (Auto) (0-5) /lpf Urine RBC (0-5) /hpf Urine WBC (0-5) /hpf Ur Squamous Epith Cells (0-5) /hpf Urine Bacteria (FEW) /hpf Urine Mucus (FEW) /hpf SARS-CoV-2 RNA (DORA) (NEGATIVE) MRSA (PCR) 05/05/21 05/05/21 05/05/21 Range/Units 18:36 18:36 18:36 WBC (3.98-10.04) K/mm3 RBC (3.98-5.22) M/mm3 Hgb (11.2-15.7) gm/dl Hct (34.1-44.9) % MCV (79.4-94.8) fl MCH (25.6-32.2) pg MCHC (32.2-35.5) g/dl RDW Std Deviation (36.4-46.3) fL Plt Count (182-369) K/mm3 MPV (9.4-12.3) fl Neut % (Auto) (34.0-71.1) % Lymph % (Auto) (19.3-51.7) % Pickett % (Auto) (4.7-12.5) % Eos % (Auto) (0.7-5.8) Baso % (Auto) (0.1-1.2) % Neut # (Auto) (1.56-6.13) K/mm3 Lymph # (Auto) (1.18-3.74) K/mm3 Pickett # (Auto) (0.24-0.36) K/mm3 Eos # (Auto) (0.04-0.36) K/mm3 Baso # (Auto) (0.01-0.08) K/mm3 Neutrophils % (Manual) (40-60) % Band Neutrophils % (0-10) % Lymphocytes % (Manual) (20-40) % Atypical Lymphs % % Monocytes % (Manual) (2-10) % Eosinophils % (Manual) (0.7-5.8) % Basophils % (Manual) (0.1-1.2) Manual Slide Review Platelet Estimate Plt Morphology Comment Hypochromasia Anisocytosis Macrocytosis Ovalocytes RBC Morph Comment ESR 34 H (0-20) mm/hr PT (9.7-12.0) SECONDS INR APTT (21.7-31.4) SECONDS Sodium (136-145) mEq/L Potassium (3.5-5.1) mEq/L Chloride (98-107) mEq/L Carbon Dioxide (21-32) mEq/L Anion Gap (5-15) BUN (7-18) mg/dL Creatinine (0.55-1.02) mg/dL Est Cr Clr Drug Dosing mL/min Estimated GFR (MDRD) (>60) mL/min BUN/Creatinine Ratio (14-18) Glucose (70-99) mg/dL Lactic Acid 3.7 H* (0.4-2.0) mmol/L Calcium (8.5-10.1) mg/dL Magnesium (1.8-2.4) mg/dL Total Bilirubin (0.2-1.0) mg/dL AST (15-37) U/L ALT (14-59) U/L Alkaline Phosphatase (46-116) U/L Lactate Dehydrogenase (81-234) U/L Troponin I (0.00-0.056) ng/mL C-Reactive Protein (<1.0) mg/dL NT-Pro-B Natriuret Pep (0-450) pg/mL Total Protein (6.4-8.2) g/dl Albumin (3.4-5.0) g/dl Globulin gm/dL Albumin/Globulin Ratio (1-2) Procalcitonin ng/mL TSH 3rd Generation 0.511 (0.358-3.74) uIU/mL Urine Color (Yellow) Urine Appearance (Clear) Urine pH (5.0-8.0) Ur Specific [facility] (1.005-1.030) Urine Protein (Negative) Urine Glucose (UA) (Negative) Urine Ketones (Negative) Urine Occult Blood (Negative) Urine Nitrite (Negative) Urine Bilirubin (Negative) Urine Urobilinogen (0.2-1.0) Ur Leukocyte Esterase (Negative) U Hyaline Cast (Auto) (0-5) /lpf Urine RBC (0-5) /hpf Urine WBC (0-5) /hpf Ur Squamous Epith Cells (0-5) /hpf Urine Bacteria (FEW) /hpf Urine Mucus (FEW) /hpf SARS-CoV-2 RNA (DORA) (NEGATIVE) MRSA (PCR) 05/05/21 05/05/21 05/05/21 Range/Units 18:36 18:49 19:10 WBC (3.98-10.04) K/mm3 RBC (3.98-5.22) M/mm3 Hgb (11.2-15.7) gm/dl Hct (34.1-44.9) % MCV (79.4-94.8) fl MCH (25.6-32.2) pg MCHC (32.2-35.5) g/dl RDW Std Deviation (36.4-46.3) fL Plt Count (182-369) K/mm3 MPV (9.4-12.3) fl Neut % (Auto) (34.0-71.1) % Lymph % (Auto) (19.3-51.7) % Pickett % (Auto) (4.7-12.5) % Eos % (Auto) (0.7-5.8) Baso % (Auto) (0.1-1.2) % Neut # (Auto) (1.56-6.13) K/mm3 Lymph # (Auto) (1.18-3.74) K/mm3 [place]ett # (Auto) (0.24-0.36) K/mm3 Eos # (Auto) (0.04-0.36) K/mm3 Baso # (Auto) (0.01-0.08) K/mm3 Neutrophils % (Manual) (40-60) % Band Neutrophils % (0-10) % Lymphocytes % (Manual) (20-40) % Atypical Lymphs % % Monocytes % (Manual) (2-10) % Eosinophils % (Manual) (0.7-5.8) % Basophils % (Manual) (0.1-1.2) Manual Slide Review Platelet Estimate Plt Morphology Comment Hypochromasia Anisocytosis Macrocytosis Ovalocytes RBC Morph Comment ESR (0-20) mm/hr PT (9.7-12.0) SECONDS INR APTT (21.7-31.4) SECONDS Sodium (136-145) mEq/L Potassium (3.5-5.1) mEq/L Chloride (98-107) mEq/L Carbon Dioxide (21-32) mEq/L Anion Gap (5-15) BUN (7-18) mg/dL Creatinine (0.55-1.02) mg/dL Est Cr Clr Drug Dosing mL/min Estimated GFR (MDRD) (>60) mL/min BUN/Creatinine Ratio (14-18) Glucose (70-99) mg/dL Lactic Acid (0.4-2.0) mmol/L Calcium (8.5-10.1) mg/dL Magnesium (1.8-2.4) mg/dL Total Bilirubin (0.2-1.0) mg/dL AST (15-37) U/L ALT (14-59) U/L Alkaline Phosphatase (46-116) U/L Lactate Dehydrogenase (81-234) U/L Troponin I (0.00-0.056) ng/mL C-Reactive Protein (<1.0) mg/dL NT-Pro-B Natriuret Pep 2104 H (0-450) pg/mL Total Protein (6.4-8.2) g/dl Albumin (3.4-5.0) g/dl Globulin gm/dL Albumin/Globulin Ratio (1-2) Procalcitonin 0.20 H ng/mL TSH 3rd Generation (0.358-3.74) uIU/mL Urine Color (Yellow) Urine Appearance (Clear) Urine pH (5.0-8.0) Ur Specific [facility] (1.005-1.030) Urine Protein (Negative) Urine Glucose (UA) (Negative) Urine Ketones (Negative) Urine Occult Blood (Negative) Urine Nitrite (Negative) Urine Bilirubin (Negative) Urine Urobilinogen (0.2-1.0) Ur Leukocyte Esterase (Negative) U Hyaline Cast (Auto) (0-5) /lpf Urine RBC (0-5) /hpf Urine WBC (0-5) /hpf Ur Squamous Epith Cells (0-5) /hpf Urine Bacteria (FEW) /hpf Urine Mucus (FEW) /hpf SARS-CoV-2 RNA (DORA) Negative (NEGATIVE) MRSA (PCR) 05/05/21 05/05/21 05/05/21 Range/Units 19:36 21:47 22:05 WBC (3.98-10.04) K/mm3 RBC (3.98-5.22) M/mm3 Hgb (11.2-15.7) gm/dl Hct (34.1-44.9) % MCV (79.4-94.8) fl MCH (25.6-32.2) pg MCHC (32.2-35.5) g/dl RDW Std Deviation (36.4-46.3) fL Plt Count (182-369) K/mm3 MPV (9.4-12.3) fl Neut % (Auto) (34.0-71.1) % Lymph % (Auto) (19.3-51.7) % Pickett % (Auto) (4.7-12.5) % Eos % (Auto) (0.7-5.8) Baso % (Auto) (0.1-1.2) % Neut # (Auto) (1.56-6.13) K/mm3 Lymph # (Auto) (1.18-3.74) K/mm3 [place]ett # (Auto) (0.24-0.36) K/mm3 Eos # (Auto) (0.04-0.36) K/mm3 Baso # (Auto) (0.01-0.08) K/mm3 Neutrophils % (Manual) (40-60) % Band Neutrophils % (0-10) % Lymphocytes % (Manual) (20-40) % Atypical Lymphs % % Monocytes % (Manual) (2-10) % Eosinophils % (Manual) (0.7-5.8) % Basophils % (Manual) (0.1-1.2) Manual Slide Review Platelet Estimate Plt Morphology Comment Hypochromasia Anisocytosis Macrocytosis Ovalocytes RBC Morph Comment ESR (0-20) mm/hr PT (9.7-12.0) SECONDS INR APTT (21.7-31.4) SECONDS Sodium (136-145) mEq/L Potassium (3.5-5.1) mEq/L Chloride (98-107) mEq/L Carbon Dioxide (21-32) mEq/L Anion Gap (5-15) BUN (7-18) mg/dL Creatinine (0.55-1.02) mg/dL Est Cr Clr Drug Dosing mL/min Estimated GFR (MDRD) (>60) mL/min BUN/Creatinine Ratio (14-18) Glucose (70-99) mg/dL Lactic Acid 3.2 H* (0.4-2.0) mmol/L Calcium (8.5-10.1) mg/dL Magnesium (1.8-2.4) mg/dL Total Bilirubin (0.2-1.0) mg/dL AST (15-37) U/L ALT (14-59) U/L Alkaline Phosphatase (46-116) U/L Lactate Dehydrogenase (81-234) U/L Troponin I 0.518 H* (0.00-0.056) ng/mL C-Reactive Protein (<1.0) mg/dL NT-Pro-B Natriuret Pep (0-450) pg/mL Total Protein (6.4-8.2) g/dl Albumin (3.4-5.0) g/dl Globulin gm/dL Albumin/Globulin Ratio (1-2) Procalcitonin ng/mL TSH 3rd Generation (0.358-3.74) uIU/mL Urine Color Yellow (Yellow) Urine Appearance Clear (Clear) Urine pH 5.5 (5.0-8.0) Ur Specific [facility] 1.025 (1.005-1.030) Urine Protein Trace H (Negative) Urine Glucose (UA) Negative (Negative) Urine Ketones 1+ H (Negative) Urine Occult Blood Negative (Negative) Urine Nitrite Negative (Negative) Urine Bilirubin Negative (Negative) Urine Urobilinogen 0.2 (0.2-1.0) Ur Leukocyte Esterase Negative (Negative) U Hyaline Cast (Auto) 5-10 H (0-5) /lpf Urine RBC 0-5 (0-5) /hpf Urine WBC 0-5 (0-5) /hpf Ur Squamous Epith Cells 0-5 (0-5) /hpf Urine Bacteria Few (FEW) /hpf Urine Mucus Many H (FEW) /hpf SARS-CoV-2 RNA (DORA) (NEGATIVE) MRSA (PCR) 05/06/21 05/06/21 05/06/21 Range/Units 01:06 MST 01:37 MST 05:05 WBC 2.84 L (3.98-10.04) K/mm3 RBC 3.11 L (3.98-5.22) M/mm3 Hgb 9.3 L (11.2-15.7) gm/dl Hct 31.2 L (34.1-44.9) % MCV 100.3 H (79.4-94.8) fl MCH 29.9 (25.6-32.2) pg MCHC 29.8 L (32.2-35.5) g/dl RDW Std Deviation 56.1 H (36.4-46.3) fL Plt Count 77 L (182-369) K/mm3 MPV 11.2 (9.4-12.3) fl Neut % (Auto) 53.8 (34.0-71.1) % Lymph % (Auto) 22.9 (19.3-51.7) % Pickett % (Auto) 13.0 H (4.7-12.5) % Eos % (Auto) 9.5 H (0.7-5.8) Baso % (Auto) 0.4 (0.1-1.2) % Neut # (Auto) 1.53 L (1.56-6.13) K/mm3 Lymph # (Auto) 0.65 L (1.18-3.74) K/mm3 Pickett # (Auto) 0.37 H (0.24-0.36) K/mm3 Eos # (Auto) 0.27 (0.04-0.36) K/mm3 Baso # (Auto) 0.01 (0.01-0.08) K/mm3 Neutrophils % (Manual) (40-60) % Band Neutrophils % (0-10) % Lymphocytes % (Manual) (20-40) % Atypical Lymphs % % Monocytes % (Manual) (2-10) % Eosinophils % (Manual) (0.7-5.8) % Basophils % (Manual) (0.1-1.2) Manual Slide Review Abnormal smear Platelet Estimate Plt Morphology Comment Hypochromasia Anisocytosis Macrocytosis Ovalocytes RBC Morph Comment ESR (0-20) mm/hr PT (9.7-12.0) SECONDS INR APTT (21.7-31.4) SECONDS Sodium (136-145) mEq/L Potassium (3.5-5.1) mEq/L Chloride (98-107) mEq/L Carbon Dioxide (21-32) mEq/L Anion Gap (5-15) BUN (7-18) mg/dL Creatinine (0.55-1.02) mg/dL Est Cr Clr Drug Dosing mL/min Estimated GFR (MDRD) (>60) mL/min BUN/Creatinine Ratio (14-18) Glucose (70-99) mg/dL Lactic Acid 1.3 (0.4-2.0) mmol/L Calcium (8.5-10.1) mg/dL Magnesium (1.8-2.4) mg/dL Total Bilirubin (0.2-1.0) mg/dL AST (15-37) U/L ALT (14-59) U/L Alkaline Phosphatase (46-116) U/L Lactate Dehydrogenase (81-234) U/L Troponin I (0.00-0.056) ng/mL C-Reactive Protein (<1.0) mg/dL NT-Pro-B Natriuret Pep (0-450) pg/mL Total Protein (6.4-8.2) g/dl Albumin (3.4-5.0) g/dl Globulin gm/dL Albumin/Globulin Ratio (1-2) Procalcitonin ng/mL TSH 3rd Generation (0.358-3.74) uIU/mL Urine Color (Yellow) Urine Appearance (Clear) Urine pH (5.0-8.0) Ur Specific [facility] (1.005-1.030) Urine Protein (Negative) Urine Glucose (UA) (Negative) Urine Ketones (Negative) Urine Occult Blood (Negative) Urine Nitrite (Negative) Urine Bilirubin (Negative) Urine Urobilinogen (0.2-1.0) Ur Leukocyte Esterase (Negative) U Hyaline Cast (Auto) (0-5) /lpf Urine RBC (0-5) /hpf Urine WBC (0-5) /hpf Ur Squamous Epith Cells (0-5) /hpf Urine Bacteria (FEW) /hpf Urine Mucus (FEW) /hpf SARS-CoV-2 RNA (DORA) (NEGATIVE) MRSA (PCR) Negative Result Diagrams: 05/06/21 05:05 05/05/21 18:36 Sepsis Event Note - Evaluation Sepsis Screening Result: No Definite Risk - Focused Exam Vital Signs: Vital Signs Temp Pulse Resp BP Pulse Ox 05/06/21 05:23 97.9 F 67 20 137/79 97 05/05/21 23:43 98.2 F 74 22 H 105/65 91 L - Problem List (1) Pancytopenia with fever SNOMED Code(s): 402721526 ICD Code: D61.818 - OTHER PANCYTOPENIA; R50.81 - FEVER PRESENTING WITH CONDITIONS CLASSIFIED ELSEWHERE Status: Acute Current Visit: Yes (2) Type [address] elevation SNOMED Code(s): 05124376 ICD Code: I21.A1 - MYOCARDIAL INFARCTION TYPE 2 Status: Acute Current Visit: Yes (3) Elevated troponin SNOMED Code(s): 313615996, 069392474, 325594012 ICD Code: R77.8 - OTHER SPECIFIED ABNORMALITIES OF PLASMA PROTEINS Status: Acute Current Visit: No (4) Sepsis SNOMED Code(s): 92496519 ICD Code: A41.9 - SEPSIS, UNSPECIFIED ORGANISM Status: Acute Current Visit: Yes Qualifiers: Sepsis type: sepsis due to unspecified organism Sepsis acute organ dysfunction status: unspecified Qualified Code(s): A41.9 - Sepsis, unspecified organism Problem List Initiated/Reviewed/Updated: Yes Orders Last 24hrs: Active Orders 24 hr Category Date Time Status Patient Status [ADT] Routine ADT 05/06/21 00:13 Active Activity as Tolerated [RC] .Routine Care 05/06/21 00:15 Active ADA Diabetic [[place] [employer] Diet] [DIET Diet 05/06/21 Breakfast Active ] BLOOD CULTURE [MREF] Stat Lab 05/05/21 19:10 Received BLOOD CULTURE [MREF] Stat Lab 05/05/21 19:15 Received Acetaminophen [TylenoL] Med 05/06/21 00:18 Active 650 mg PO Q4H PRN Ibuprofen [Motrin] Med 05/06/21 00:19 Active 400 mg PO Q6H PRN Pharmacy to Dose - Vancomycin Med 05/06/21 09:15 Ordered 1 dose .XX ASDIRECTED Piperacillin/Tazobactam 4.5 GM in NS 0.9% @ 25 MLS/HR ( Med 05/06/21 09:01 Ordered 100ml) Piperacillin/Tazobactam [Piperacil-Tazobact] 4.5 gm Sodium Chloride 0.9% [Normal Saline AdvBag] 100 ml IV Q8H Blood Culture x2 Reflex Set [OM.PC] Stat Oth 05/05/21 18:45 Ordered Medication Orders Acetaminophen (Acetaminophen 325 Mg Tab) 650 mg PO Q4H PRN PRN Reason: Pain/Fever Piperacillin Sod/Tazobactam (Sod 4.5 gm/ Sodium Chloride) 100 mls @ 25 mls/hr IV Q8H NOREEN Ibuprofen (Ibuprofen 400 Mg Tab) 400 mg PO Q6H PRN PRN Reason: Pain/Fever Vancomycin HCl (Pharmacy To Dose - Vancomycin) 1 dose .XX ASDIRECTED [facility] Assessment/Plan Comment:: 76-year-old female with coronary artery disease and bypass graft with aortic valve replacement presents to the emergency department with fever of 101 and lactic acidosis without source of infection. Pancytopenia with fever and lactic acidosis Sepsis * This morning patient's WBC is 2.8 with an ANC of 1.53. CRP 1.9 * Hemoglobin 9.3 * Platelets 77 * CRP decreased from initial CRP of 3.8 down to 1.3 with IV fluids * Chest x-ray and UA negative for infection * Blood cultures pending * Started on Zosyn, vancomycin, and Levaquin * Hospitalized January this year for sepsis secondary to UTI at [facility] in [place]. * Patient only fulfills 1 SIRS criteria of fever. She did have a transient respiratory rate in the 20s, but that resolved quickly on chart review. She did have some altered mental status, significantly elevated lactic acid, and procalcitonin is pending. White count at the time of presentation was above 4 and now it is down below 3. * We are missing a source for the presumed infection. She did have a heart valve replacement, therefore it could be heart valve although I do not appreciate a significant murmur. We only have transthoracic echocardiography available at this facility. We may need to consider transfer if blood cultures are positive. Type II myocardial infarction without ST elevation History of coronary artery disease with coronary artery bypass graft and aortic valve replacement Hypertension, hyperlipidemia * Initial troponin was 0.18 with repeat at 0.5. * proBNP 2104 * ED physician did discuss this with cardiology who felt it was demand ischemia recommended to treat the sepsis and a full dose aspirin. * ECG showed a ventricular rate of 78 bpm in sinus rhythm with normal axis. Poor R wave wave progression. Q waves in leads V1 through V3 consistent with old inferior infarct. LVH. Type 2 diabetes * On long-acting and mealtime insulin Dementia * This makes history more difficult to obtain * Home medications include Aricept 5 mg daily Plan * Admit to medical floor. Patient was admitted overnight and was seen the next day. * Request old records from previous hospitalization * FiO2 to keep SPO2 greater than 90% * Continue Levaquin, Zosyn, and vancomycin until blood cultures return * Follow CBC, CMP, mag, CRP * Awaiting procalcitonin that was sent off last night. * Reconcile home meds * Continue aspirin * No benefit trending troponin. * No heparin for VTE prophylaxis secondary to thrombocytopenia * CODE STATUS: DNR/DNI - Mortality Measure Prognosis:: Good
[2021-05-06] MEDS ORDERED: Ondansetron 4 MG Tab.DIS PO PRN (09:06)
[2021-05-06] MEDS ORDERED: Loperamide 2 MG Cap PO PRN (09:06)
[2021-05-06] MEDS ORDERED: Bisacodyl 10 MG Supp RECTAL PRN (09:06)
[2021-05-06] MEDS ORDERED: Albuterol 6.7 GM Inhaler INH PRN (09:06)
[2021-05-06] MEDS ORDERED: Albuterol 0.083% 2.5 MG/3 ML Neb Soln NEB PRN (09:06)
[2021-05-06] MEDS ORDERED: Piperacillin/Tazobactam 4.5 GM in Sodium Chloride 0.9% 100 ML IV ONE (10:00)
[2021-05-06] MEDS: Pantoprazole 40 MG Tab.CR PO SCH ×2 (10:13→20:27)
[2021-05-06] MEDS: Atenolol 25 MG Tab PO SCH (10:14)
[2021-05-06] MEDS ORDERED: Magnesium Sulfate/Water 4 GM in Premix Bag 1 BAG IV ONE (11:49)
[2021-05-06] MEDS ORDERED: Nystatin Susp 100,000 Unit/ML 5 ML UD Cup PO SCH (15:00)
[2021-05-06] MEDS: Insulin Lispro 100 Unit/ML 3 ML KwikPen SUBCUT SCH ×2 (17:38→21:59)
[2021-05-06] MEDS: Piperacillin/Tazobactam 4.5 GM in Sodium Chloride 0.9% 100 ML IV SCH (17:45)
[2021-05-06] MEDS: Magnesium Oxide 400 MG Tab PO SCH (20:27)
[2021-05-06] MEDS: Insulin Glargine,Hum.Rec.Anlog 100 UNIT/ML 3 ML Pen SUBCUT SCH (20:27)
[2021-05-06] MEDS: Amitriptyline 25 MG Tab PO SCH (20:27)
[2021-05-07] MEDS: Piperacillin/Tazobactam 4.5 GM in Sodium Chloride 0.9% 100 ML IV SCH ×3 (02:46→17:23)
[2021-05-07] MEDS: Pantoprazole 40 MG Tab.CR PO SCH ×2 (05:48→20:51)
[2021-05-07] MEDS: Levothyroxine 50 MCG Tab PO SCH (05:48)
[2021-05-07] MEDS: Insulin Lispro 100 Unit/ML 3 ML KwikPen SUBCUT SCH ×5 (06:53→21:27)
[2021-05-07] MEDS ORDERED: Enoxaparin 40 MG/0.4 ML Syringe SUBCUT SCH (09:00)
[2021-05-07] MEDS ORDERED: Amitriptyline 25 MG Tab PO SCH (09:00)
--- NOTE | 2021-05-07 09:04 | PCM.PN ---
- General Info Date of Service: 05/07/21 Admission Dx/Problem (Free Text): Admission Diagnosis/Problem Admission Diagnosis/Problem Sepsis Subjective Update: Patient initially admitted to the hospital for feelings of possible sepsis syndrome as evidenced by low blood blood cell count, subjective fever of 101.5 F and lactic acidosis of 3.8. Hydrated aggressively and given triple antibiotics as previously described. This morning, patient seen and examined at bedside as she is eating breakfast. She does not endorse any specific complaints. She shakes her head and says she feels fine if asked if anything is wrong. Has a good appetite. Denies any chest pain, chest pressure, pleurisy, lightheadedness/dizziness, nausea/vomiting, abdominal pain or dysuria. No new skin changes. No new nursing concerns. Functional Status: Reports: Tolerating Diet - Review of Systems General: Reports: No Symptoms HEENT: Reports: No Symptoms Pulmonary: Reports: No Symptoms Cardiovascular: Reports: No Symptoms Gastrointestinal: Reports: No Symptoms Genitourinary: Reports: No Symptoms - Patient Data Vitals - Most Recent: Last Vital Signs Temp 98.4 F 05/07/21 08:29 Pulse 62 05/07/21 08:29 Resp 20 05/07/21 08:29 BP 123/59 L 05/07/21 08:29 Pulse Ox 94 L 05/07/21 08:29 Weight - Most Recent: 136 lb 4.8 oz I&O - Last 24 Hours: Intake & Output 05/06/21 05/07/21 05/07/21 22:59 06:59 14:59 Intake Total 450 800 Output Total 200 600 Balance 250 200 Lab Results Last 24 Hours: Laboratory Results - last 24 hr 05/06/21 05/06/21 05/07/21 Range/Units 17:37 20:31 06:10 WBC 3.60 L (3.98-10.04) K/mm3 RBC 3.09 L (3.98-5.22) M/mm3 Hgb 9.3 L (11.2-15.7) gm/dl Hct 31.0 L (34.1-44.9) % MCV 100.3 H (79.4-94.8) fl MCH 30.1 (25.6-32.2) pg MCHC 30.0 L (32.2-35.5) g/dl RDW Std Deviation 55.5 H (36.4-46.3) fL Plt Count 83 L (182-369) K/mm3 MPV 10.7 (9.4-12.3) fl Neut % (Auto) 53.1 (34.0-71.1) % Lymph % (Auto) 24.4 (19.3-51.7) % Scott % (Auto) 10.8 (4.7-12.5) % Eos % (Auto) 10.8 H (0.7-5.8) Baso % (Auto) 0.6 (0.1-1.2) % Neut # (Auto) 1.91 (1.56-6.13) K/mm3 Lymph # (Auto) 0.88 L (1.18-3.74) K/mm3 Scott # (Auto) 0.39 H (0.24-0.36) K/mm3 Eos # (Auto) 0.39 H (0.04-0.36) K/mm3 Baso # (Auto) 0.02 (0.01-0.08) K/mm3 Manual Slide Review Abnormal smear Sodium (136-145) mEq/L Potassium (3.5-5.1) mEq/L Chloride (98-107) mEq/L Carbon Dioxide (21-32) mEq/L Anion Gap (5-15) BUN (7-18) mg/dL Creatinine (0.55-1.02) mg/dL Est Cr Clr Drug Dosing mL/min Estimated GFR (MDRD) (>60) mL/min BUN/Creatinine Ratio (14-18) Glucose (70-99) mg/dL POC Glucose 103 H 103 H (70-99) mg/dL Calcium (8.5-10.1) mg/dL Magnesium (1.8-2.4) mg/dL Total Bilirubin (0.2-1.0) mg/dL AST (15-37) U/L ALT (14-59) U/L Alkaline Phosphatase (46-116) U/L C-Reactive Protein (<1.0) mg/dL Total Protein (6.4-8.2) g/dl Albumin (3.4-5.0) g/dl Globulin gm/dL Albumin/Globulin Ratio (1-2) 05/07/21 05/07/21 Range/Units 06:10 06:26 WBC (3.98-10.04) K/mm3 RBC (3.98-5.22) M/mm3 Hgb (11.2-15.7) gm/dl Hct (34.1-44.9) % MCV (79.4-94.8) fl MCH (25.6-32.2) pg MCHC (32.2-35.5) g/dl RDW Std Deviation (36.4-46.3) fL Plt Count (182-369) K/mm3 MPV (9.4-12.3) fl Neut % (Auto) (34.0-71.1) % Lymph % (Auto) (19.3-51.7) % Scott % (Auto) (4.7-12.5) % Eos % (Auto) (0.7-5.8) Baso % (Auto) (0.1-1.2) % Neut # (Auto) (1.56-6.13) K/mm3 Lymph # (Auto) (1.18-3.74) K/mm3 Scott # (Auto) (0.24-0.36) K/mm3 Eos # (Auto) (0.04-0.36) K/mm3 Baso # (Auto) (0.01-0.08) K/mm3 Manual Slide Review Sodium 143 (136-145) mEq/L Potassium 3.4 L (3.5-5.1) mEq/L Chloride 108 H (98-107) mEq/L Carbon Dioxide 26 (21-32) mEq/L Anion Gap 12.4 (5-15) BUN 7 (7-18) mg/dL Creatinine 0.8 (0.55-1.02) mg/dL Est Cr Clr Drug Dosing 45.84 mL/min Estimated GFR (MDRD) > 60 (>60) mL/min BUN/Creatinine Ratio 8.8 L (14-18) Glucose 117 H (70-99) mg/dL POC Glucose 115 H (70-99) mg/dL Calcium 7.9 L (8.5-10.1) mg/dL Magnesium 2.0 (1.8-2.4) mg/dL Total Bilirubin 0.4 (0.2-1.0) mg/dL AST 22 (15-37) U/L ALT 15 (14-59) U/L Alkaline Phosphatase 41 L (46-116) U/L C-Reactive Protein 2.7 H* (<1.0) mg/dL Total Protein 5.5 L (6.4-8.2) g/dl Albumin 2.4 L (3.4-5.0) g/dl Globulin 3.1 gm/dL Albumin/Globulin Ratio 0.8 L (1-2) Med Orders - Current: Current Medications Acetaminophen (Acetaminophen 325 Mg Tab) 650 mg PO Q4H PRN PRN Reason: Pain/Fever Albuterol (Albuterol 0.083% 2.5 Mg/3 Ml Neb Soln) 2.5 mg NEB Q4HR PRN PRN Reason: wheeze Albuterol (Albuterol 6.7 Gm Inhaler) 0 gm INH Q4H PRN PRN Reason: Cough Amitriptyline HCl (Amitriptyline 25 Mg Tab) 25 mg PO BEDTIME [facility] Last Admin: 05/06/21 20:27 Dose: 25 mg Documented by: Atenolol (Atenolol 25 Mg Tab) 25 mg PO DAILY [facility] Last Admin: 05/06/21 10:14 Dose: 25 mg Documented by: Bisacodyl (Bisacodyl 10 Mg Supp) 10 mg RECTAL DAILY PRN PRN Reason: Constipation Folic Acid (Folic Acid 1 Mg Tab) 1 mg PO DAILY [facility] Piperacillin Sod/Tazobactam (Sod 4.5 gm/ Sodium Chloride) 100 mls @ 25 mls/hr IV Q8H [facility] Last Admin: 05/07/21 02:46 Dose: 25 mls/hr Documented by: Vancomycin HCl 1 gm/ Sodium (Chloride) 250 mls @ 250 mls/hr IV Q24H [facility] Last Admin: 05/06/21 21:56 Dose: 250 mls/hr Documented by: Ibuprofen (Ibuprofen 400 Mg Tab) 400 mg PO Q6H PRN PRN Reason: Pain/Fever Insulin Glargine (Insulin Glargine,Hum.Rec.Anlog 100 Unit/Ml 3 Ml Pen) 5 unit SUBCUT BEDTIME [facility] Last Admin: 05/06/21 20:27 Dose: 5 units Documented by: Insulin Human Lispro (Insulin Lispro 100 Unit/Ml 3 Ml Kwikpen) 0 unit SUBCUT QIDACANDBED [facility]; Protocol Last Admin: 05/07/21 06:53 Dose: Not Given Documented by: Levofloxacin (Levofloxacin 750 Mg Tab) 750 mg PO Q48H [facility] Stop: 05/09/21 21:01 Levothyroxine Sodium (Levothyroxine 50 Mcg Tab) 50 mcg PO ACBREAKFAST [facility] Last Admin: 05/07/21 05:48 Dose: 50 mcg Documented by: Loperamide HCl (Loperamide 2 Mg Cap) 2 mg PO DAILY PRN PRN Reason: Constipation Magnesium Oxide (Magnesium Oxide 400 Mg Tab) 400 mg PO BID [facility] Last Admin: 05/06/21 20:27 Dose: 400 mg Documented by: Nystatin (Nystatin Susp 100,000 Unit/Ml 5 Ml Ud Cup) 5 ml PO TID [facility] Ondansetron HCl (Ondansetron 4 Mg Tab.Dis) 4 mg PO QID PRN PRN Reason: Nausea Pantoprazole Sodium (Pantoprazole 40 Mg Tab.Cr) 40 mg PO BID@0600,2100 [facility] Last Admin: 05/07/21 05:48 Dose: 40 mg Documented by: Prednisone (Prednisone 1 Mg Tab) 1 mg PO DAILY [facility] Rosuvastatin Calcium (Rosuvastatin 10 Mg Tab) 20 mg PO BEDTIME [facility] Vancomycin HCl (Pharmacy To Dose - Vancomycin) 1 dose .XX ASDIRECTED PRN PRN Reason: RX TO DOSE VANCO Discontinued Medications Acetaminophen (Acetaminophen 325 Mg Tab) 650 mg PO NOW STA Stop: 05/05/21 18:44 Last Admin: 05/05/21 19:19 Dose: 650 mg Documented by: Amitriptyline HCl (Amitriptyline 25 Mg Tab) 25 mg PO DAILY [facility] Aspirin (Aspirin 81 Mg Tab.Chew) 324 mg PO ONETIME ONE Stop: 05/05/21 23:15 Last Admin: 05/05/21 23:20 Dose: 324 mg Documented by: Enoxaparin Sodium (Enoxaparin 40 Mg/0.4 Ml Syringe) 40 mg SUBCUT DAILY [facility] Dextrose/Sodium Chloride (Dextrose 5%-Normal Saline) 1,000 mls @ 150 mls/hr IV ASDIRECTED [facility] Last Admin: 05/05/21 19:19 Dose: 150 mls/hr Documented by: Dextrose/Sodium Chloride (Dextrose 5%-Normal Saline) 1,000 mls @ 999 mls/hr IV ASDIRECTED [facility] Levofloxacin/Dextrose 500 mg/ (Premix) 100 mls @ 100 mls/hr IV ONETIME ONE Stop: 05/05/21 21:09 Last Admin: 05/05/21 20:24 Dose: 100 mls/hr Documented by: Sodium Chloride (Normal Saline) 1,000 mls @ 150 mls/hr IV ASDIRECTED [facility] Last Admin: 05/06/21 01:22 MDT Dose: 150 mls/hr Documented by: Piperacillin Sod/Tazobactam (Sod 3.5 gm/ Sodium Chloride) 100 mls @ 200 mls/hr IV ONETIME ONE Stop: 05/06/21 00:46 Last Admin: 05/06/21 10:30 Dose: 200 mls/hr Documented by: Vancomycin HCl 1 gm/ Sodium (Chloride) 250 mls @ 250 mls/hr IV ONETIME ONE Stop: 05/06/21 01:16 [facility] Last Admin: 05/06/21 01:55 MDT Dose: 250 mls/hr Documented by: Piperacillin Sod/Tazobactam (Sod 3.5 gm/ Sodium Chloride) 78 mls @ 156 mls/hr IV ONETIME ONE Stop: 05/06/21 01:59 [facility] Last Admin: 05/06/21 01:52 [facility] Dose: Not Given Documented by: Piperacillin Sod/Tazobactam (Sod 4.5 gm/ Sodium Chloride) 100 mls @ 200 mls/hr IV ONETIME ONE Stop: 05/06/21 10:29 Last Admin: 05/06/21 10:15 Dose: 200 mls/hr Documented by: Magnesium Sulfate 4 gm/ Premix 50 mls @ 12.5 mls/hr IV ONETIME ONE Stop: 05/06/21 15:48 Last Admin: 05/06/21 12:21 Dose: 12.5 mls/hr Documented by: Nystatin (Nystatin Susp 100,000 Unit/Ml 5 Ml Ud Cup) 500,000 ml PO TID [facility] Last Admin: 05/06/21 17:10 Dose: Not Given Documented by: - Exam General: Alert, Oriented HEENT: Pupils Equal, EOMI Lungs: Clear to Auscultation, Normal Respiratory Effort Cardiovascular: Regular Rate, Regular Rhythm GI/Abdominal Exam: Normal Bowel Sounds, Soft, Non-Tender, No Distention Extremities: Normal Inspection, No Pedal Edema Skin: Warm, Dry, Intact Neurological: No New Focal Deficit - Patient Data Lab Results Last 24 hrs: Laboratory Results - last 24 hr 05/06/21 05/06/21 05/07/21 Range/Units 17:37 20:31 06:10 WBC 3.60 L (3.98-10.04) K/mm3 RBC 3.09 L (3.98-5.22) M/mm3 Hgb 9.3 L (11.2-15.7) gm/dl Hct 31.0 L (34.1-44.9) % MCV 100.3 H (79.4-94.8) fl MCH 30.1 (25.6-32.2) pg MCHC 30.0 L (32.2-35.5) g/dl RDW Std Deviation 55.5 H (36.4-46.3) fL Plt Count 83 L (182-369) K/mm3 MPV 10.7 (9.4-12.3) fl Neut % (Auto) 53.1 (34.0-71.1) % Lymph % (Auto) 24.4 (19.3-51.7) % Scott % (Auto) 10.8 (4.7-12.5) % Eos % (Auto) 10.8 H (0.7-5.8) Baso % (Auto) 0.6 (0.1-1.2) % Neut # (Auto) 1.91 (1.56-6.13) K/mm3 Lymph # (Auto) 0.88 L (1.18-3.74) K/mm3 Scott # (Auto) 0.39 H (0.24-0.36) K/mm3 Eos # (Auto) 0.39 H (0.04-0.36) K/mm3 Baso # (Auto) 0.02 (0.01-0.08) K/mm3 Manual Slide Review Abnormal smear Sodium (136-145) mEq/L Potassium (3.5-5.1) mEq/L Chloride (98-107) mEq/L Carbon Dioxide (21-32) mEq/L Anion Gap (5-15) BUN (7-18) mg/dL Creatinine (0.55-1.02) mg/dL Est Cr Clr Drug Dosing mL/min Estimated GFR (MDRD) (>60) mL/min BUN/Creatinine Ratio (14-18) Glucose (70-99) mg/dL POC Glucose 103 H 103 H (70-99) mg/dL Calcium (8.5-10.1) mg/dL Magnesium (1.8-2.4) mg/dL Total Bilirubin (0.2-1.0) mg/dL AST (15-37) U/L ALT (14-59) U/L Alkaline Phosphatase (46-116) U/L C-Reactive Protein (<1.0) mg/dL Total Protein (6.4-8.2) g/dl Albumin (3.4-5.0) g/dl Globulin gm/dL Albumin/Globulin Ratio (1-2) 05/07/21 05/07/21 Range/Units 06:10 06:26 WBC (3.98-10.04) K/mm3 RBC (3.98-5.22) M/mm3 Hgb (11.2-15.7) gm/dl Hct (34.1-44.9) % MCV (79.4-94.8) fl MCH (25.6-32.2) pg MCHC (32.2-35.5) g/dl RDW Std Deviation (36.4-46.3) fL Plt Count (182-369) K/mm3 MPV (9.4-12.3) fl Neut % (Auto) (34.0-71.1) % Lymph % (Auto) (19.3-51.7) % Scott % (Auto) (4.7-12.5) % Eos % (Auto) (0.7-5.8) Baso % (Auto) (0.1-1.2) % Neut # (Auto) (1.56-6.13) K/mm3 Lymph # (Auto) (1.18-3.74) K/mm3 Scott # (Auto) (0.24-0.36) K/mm3 Eos # (Auto) (0.04-0.36) K/mm3 Baso # (Auto) (0.01-0.08) K/mm3 Manual Slide Review Sodium 143 (136-145) mEq/L Potassium 3.4 L (3.5-5.1) mEq/L Chloride 108 H (98-107) mEq/L Carbon Dioxide 26 (21-32) mEq/L Anion Gap 12.4 (5-15) BUN 7 (7-18) mg/dL Creatinine 0.8 (0.55-1.02) mg/dL Est Cr Clr Drug Dosing 45.84 mL/min Estimated GFR (MDRD) > 60 (>60) mL/min BUN/Creatinine Ratio 8.8 L (14-18) Glucose 117 H (70-99) mg/dL POC Glucose 115 H (70-99) mg/dL Calcium 7.9 L (8.5-10.1) mg/dL Magnesium 2.0 (1.8-2.4) mg/dL Total Bilirubin 0.4 (0.2-1.0) mg/dL AST 22 (15-37) U/L ALT 15 (14-59) U/L Alkaline Phosphatase 41 L (46-116) U/L C-Reactive Protein 2.7 H* (<1.0) mg/dL Total Protein 5.5 L (6.4-8.2) g/dl Albumin 2.4 L (3.4-5.0) g/dl Globulin 3.1 gm/dL Albumin/Globulin Ratio 0.8 L (1-2) Result Diagrams: 05/07/21 06:10 05/07/21 06:10 Sepsis Event Note - Evaluation Sepsis Screening Result: No Definite Risk - Focused Exam Vital Signs: Vital Signs Temp Pulse Resp BP Pulse Ox 05/07/21 08:29 98.4 F 62 20 123/59 L 94 L 05/07/21 05:45 97.5 F 65 17 107/67 94 L 05/06/21 23:06 98.8 F 73 17 139/77 91 L - Problem List Review Problem List Initiated/Reviewed/Updated: Yes - Plan Plan:: 76-year-old female with coronary artery disease and bypass graft with aortic valve replacement presents to the emergency department with fever of 101 and lactic acidosis without source of infection. 1. Supposedly sepsis with criteria as listed above. Appears to have resolved. Hard to conclude that acute bacterial infection is the source. Negative chest x-ray, negative skin exam, negative urine. Patient certainly does not appear toxic. Looks very well sitting up at the edge of the bedside eating and drinking. We will discontinue vancomycin. May have had a simple viral syndrome. Lactic acidosis resolved. Appears euvolemic. Monitor vitals and laboratory studies over the next 24 hours. If remains status quo when she is feeling well will empirically treat for an additional 3 to 5 days of systemic antibiotic therapy and discharge. 2. History of coronary artery disease status post AK. History of aortic valve repair. History of pacemaker. Continue home medications at regular dose. 3. Type 2 diabetes mellitus. Intermittent check of sugars. Invoke hospital hyperglycemia protocol. All other medical comorbidities are stable and nonactive conditions. Will continue home medications at regular dose. CODE STATUS: DNR/DNI. DVT prophylaxis: Patient is actively walking.
[2021-05-07] MEDS: Nystatin Susp 100,000 Unit/ML 5 ML UD Cup PO SCH ×3 (09:18→20:50)
[2021-05-07] MEDS: Magnesium Oxide 400 MG Tab PO SCH ×2 (09:19→20:50)
[2021-05-07] MEDS: Atenolol 25 MG Tab PO SCH (09:19)
[2021-05-07] MEDS: Folic Acid 1 MG Tab PO SCH (09:19)
[2021-05-07] MEDS: predniSONE 1 MG Tab PO SCH (09:19)
[2021-05-07] MEDS: Insulin Glargine,Hum.Rec.Anlog 100 UNIT/ML 3 ML Pen SUBCUT SCH (20:43)
[2021-05-07] MEDS: Amitriptyline 25 MG Tab PO SCH (20:51)
[2021-05-07] MEDS ORDERED: Levofloxacin 750 MG Tab PO SCH (21:00)
[2021-05-07] MEDS ORDERED: Rosuvastatin 10 MG Tab PO SCH (21:00)
[2021-05-08] MEDS: Piperacillin/Tazobactam 4.5 GM in Sodium Chloride 0.9% 100 ML IV SCH ×2 (01:25→10:03)
[2021-05-08] MEDS ORDERED: Temazepam 15 MG Cap PO SCH (02:51)
[2021-05-08] MEDS: Levothyroxine 50 MCG Tab PO SCH (05:48)
[2021-05-08] MEDS: Pantoprazole 40 MG Tab.CR PO SCH (05:48)
[2021-05-08] MEDS: Insulin Lispro 100 Unit/ML 3 ML KwikPen SUBCUT SCH ×2 (06:45→11:55)
[2021-05-08] MEDS ORDERED: Potassium Chloride 20 MEQ Tab.ER PO ONE (07:26)
[2021-05-08] MEDS: Nystatin Susp 100,000 Unit/ML 5 ML UD Cup PO SCH (08:15)
[2021-05-08] MEDS: Atenolol 25 MG Tab PO SCH (08:16)
[2021-05-08] MEDS: Magnesium Oxide 400 MG Tab PO SCH (08:16)
[2021-05-08] MEDS: predniSONE 1 MG Tab PO SCH (08:16)
[2021-05-08] MEDS: Folic Acid 1 MG Tab PO SCH (08:16)
--- NOTE | 2021-05-08 08:37 | PCM.DCSUM1 ---
Discharge Summary - Hospital Course Free Text/Narrative:: 76-year-old female with coronary artery disease and bypass graft with aortic valve replacement presented to the emergency department with subjective fever of 101 and lactic acidosis without source of infection. 1. Supposedly sepsis with criteria as listed above. Appears to have resolved. Hard to conclude that acute bacterial infection is the source. Negative chest x-ray, negative skin exam, negative urine. Patient certainly does not appear toxic. Looks very well on exam. Vancomycin discontinued on day 2 of admission. May have had a simple viral syndrome. Lactic acidosis resolved. Appears euvolemic. Monitored for 48 hours in the hospital. No signs of ongoing systemic inflammatory response or infection. Patient given 2 additional doses of levofloxacin to complete a short course of therapy that would cover both respiratory and urine sources. 2. History of coronary artery disease status post [place]. History of aortic valve repair. History of pacemaker. Continued home medications at regular dose. 3. Type 2 diabetes mellitus. Intermittent check of sugars. Hospital hyperglycemia protocol was invoked. All other medical comorbidities are stable and nonactive conditions. Will continue home medications at regular dose. CODE STATUS: DNR/DNI. DVT prophylaxis: Patient was actively walking. HPI Initial Comments: History of Present Illness Initial Comments - Free Text/Narative: 76-year-old female brought in to the emergency department by ambulance from her residence at [facility]. Patient is a fairly poor historian, but it appears that she was feeling poorly, dizzy, and disoriented. She was found in the emergency department to be feverish with a temperature of 101.5, initial respiratory rate of 16 that did go up to 22, heart rate of 74, normal WBC of 5.5 with 77% neutrophils and no bandemia. Lactic acid of 3.8 and platelets of 98,000, Patient was felt to be septic. She was given IV bolus and started on IV fluids of 150 mL/h. She was started on Levaquin, Zosyn, and vancomycin. Blo od cultures were obtained. Lactic acidosis did resolve within 6 hours of initial lactic acid. Overnight patient had an uneventful night. Her confusion appears to have improved although she still cloudy on many aspects. Patient states that she was hospitalized at [facility] in [place] for lactic acidosis. She was admitted for approximately 1 week. We do not have those records. 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 She believes she got the new valve in 2014. Review of her old records does show that she was here in the end of January of this year. She had a UTI that grew out E. coli and sepsis with a lactic acid of 6.3. She was transferred to [facility] in [place]. - Related Data Allergies/Adverse Reactions: Allergies Allergy/AdvReac Type Severity Reaction Status Date / Time cephalexin Allergy Cannot Verified 05/06/21 02:18 Remember Home Medications: Home Meds Amitriptyline [Elavil] 25 mg PO DAILY 01/04/21 [History] Donepezil [Aricept] 5 mg PO BEDTIME 01/04/21 [History] atenoloL [Atenolol] 25 mg PO DAILY 01/04/21 [History] predniSONE [Prednisone] 1 mg PO DAILY 01/04/21 [History] Levothyroxine [Synthroid] 50 mcg PO ACBREAKFAST 02/24/21 [History] Pantoprazole [ProTONIX] 40 mg PO BID 02/24/21 [History] Rosuvastatin Calcium 20 mg PO DAILY 02/24/21 [History] Cyanocobalamin (Vitamin B-12) [Vitamin B-12] 1,000 mcg PO DAILY 05/05/21 [History] Folic Acid 1 mg PO DAILY 05/05/21 [History] Insulin Glarg,Human.Rec.Analog [Lantus Solostar] 5 units SQ BEDTIME 05/05/21 [History] Insulin Lispro [Humalog] 7 units SQ TIDMEALS 05/05/21 [History] Loperamide HCl [Imodium A-D] 2 mg PO DAILY PRN 05/05/21 [History] Nitrofurantoin Monohyd/M-Cryst [Macrobid 100 mg Capsule] 100 mg PO BID 05/05/21 [History] Ondansetron [Zofran ODT] 4 mg PO QID PRN 05/05/21 [History] bisacodyL [Dulcolax] 10 mg RC DAILY PRN 05/05/21 [History] Albuterol Sulfate 2.5 mcg NEB Q4HR PRN 05/06/21 [History] Albuterol Sulfate [Proair Respiclick] 90 mcg IH Q4HR PRN 05/06/21 [History] Past Medical History HEENT History: Reports: Cataract, Hard of Hearing, Impaired Vision, Other (See Below) Other HEENT History: pt reports that she normally wears glasses but doesn't have them here with her. she states that she has hearing aides at home however they don't work so she does not wear them anymore. has an upper plate in place she states. 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: Musculoskeletal History: Reports: Arthritis Neurological History: Reports: Migraines Psychiatric History: Reports: None Endocrine/Metabolic History: Reports: Diabetes, Type II, Obesity/BMI 30+ Hematologic History: Reports: Anemia Other Hematologic History: antibodies in blood Immunologic History: Reports: None Oncologic (Cancer) History: Reports: None Dermatologic History: Reports: None - Infectious Disease History Infectious Disease History: Reports: Chicken Pox, Measles, Mumps - Past Surgical History HEENT Surgical History: Reports: Cataract Surgery Cardiovascular Surgical History: Reports: Coronary Artery Bypass Respiratory Surgical History: Reports: None Female Surgical History: Reports: None Endocrine Surgical History: Reports: None Neurological Surgical History: Reports: None Musculoskeletal Surgical History: Reports: Carpal Tunnel Social & Family History - Family History Family Medical History: No Pertinent Family History - Tobacco Use Tobacco Use Status *Q: Former Tobacco User Years of Tobacco use: 27 Packs/Tins Daily: 2 Used Tobacco, but Quit: No Second Hand Smoke Exposure: No - Caffeine Use Caffeine Use: Reports: Soda Other Caffeine Use: 2-3 pops a day - Living Situation & Occupation Living situation: Reports: Occupation: Retired H&P Review of Systems - Review of Systems: Review Of Systems: Comprehensive ROS is negative, except as noted in HPI. Exam - Exam Exam: See Below - Vital Signs Vital Signs: Last Vital Signs Temp 97.9 F 05/06/21 05:23 Pulse 67 05/06/21 05:23 Resp 20 05/06/21 05:23 BP 137/79 05/06/21 05:23 Pulse Ox 97 05/06/21 05:23 Weight: 136 lb - Exam General: Alert, Oriented HEENT: Conjunctiva Clear, Hearing Intact, Mucosa Moist & [place] (White discharge on her lips and tongue), Normal Nasal Septum, Posterior Pharynx Clear Neck: Supple, Trachea Midline, 2 Lungs: Normal Respiratory Effort, Crackles (Minimal bibasilar crackles otherwise clear) Cardiovascular: Regular Rate, Regular Rhythm GI/Abdominal Exam: Normal Bowel Sounds, Soft, Non-Tender, No Organomegaly, No Distention, No Abnormal Bruit, No Mass Extremities: Normal Inspection, Normal Range of Motion, Non-Tender, No Pedal Edema, Normal Capillary Refill Skin: Warm, Dry, Intact Neuro Extensive - Mental Status: Alert, Oriented x3, Normal Mood/Affect, Normal Cognition, Memory Intact Neuro Extensive - Motor, Sensory, Reflexes: CN II-XII Intact Psychiatric: Alert, Normal Affect, Normal Mood - Discharge Data Discharge Date: 05/08/21 Discharge Disposition: Home, Self-Care 01 Condition: Good - Referral to Home Health Primary Care Physician: Bishnu Long MD - Patient Summary/Data Consults: Consultations 05/07/21 09:26 PT Evaluation and Treatment [CONS] Routine - Patient Instructions Diet: Low Sodium, Diabetic Diet Activity: As Tolerated Driving: May Drive Today Other/Special Instructions: Follow-up with primary care physician within 1 to 2 weeks time. Continue taking medications as listed below. Continue antibiotics for 2 additional doses as described on prescription. Activity and diet are as tolerated. If you experience any signs or symptoms that warranted this admission please do not hesitate to call your primary care physician or present to an urgent care setting or emergency department for immediate evaluation. - Discharge Plan *PRESCRIPTION DRUG MONITORING PROGRAM REVIEWED*: Not Applicable *COPY OF PRESCRIPTION DRUG MONITORING REPORT IN PATIENT TK: Not Applicable Prescriptions/Med Rec: levoFLOXacin [Levaquin] 750 mg PO Q48H 2 Days #2 tablet Home Medications: Home Meds Amitriptyline [Elavil] 25 mg PO DAILY 01/04/21 [History] Donepezil [Aricept] 5 mg PO BEDTIME 01/04/21 [History] atenoloL [Atenolol] 25 mg PO DAILY 01/04/21 [History] predniSONE [Prednisone] 1 mg PO DAILY 01/04/21 [History] Levothyroxine [Synthroid] 50 mcg PO ACBREAKFAST 02/24/21 [History] Pantoprazole [ProTONIX] 40 mg PO BID 02/24/21 [History] Rosuvastatin Calcium 20 mg PO DAILY 02/24/21 [History] Cyanocobalamin (Vitamin B-12) [Vitamin B-12] 1,000 mcg PO DAILY 05/05/21 [History] Folic Acid 1 mg PO DAILY 05/05/21 [History] Insulin Glarg,Human.Rec.Analog [Lantus Solostar] 5 units SQ BEDTIME 05/05/21 [History] Insulin Lispro [Humalog] 7 units SQ TIDMEALS 05/05/21 [History] Loperamide HCl [Imodium A-D] 2 mg PO DAILY PRN 05/05/21 [History] Ondansetron [Zofran ODT] 4 mg PO QID PRN 05/05/21 [History] bisacodyL [Dulcolax] 10 mg RC DAILY PRN 05/05/21 [History] Albuterol Sulfate 2.5 mcg NEB Q4HR PRN 05/06/21 [History] Albuterol Sulfate [Proair Respiclick] 90 mcg IH Q4HR PRN 05/06/21 [History] levoFLOXacin [Levaquin] 750 mg PO Q48H 2 Days #2 tablet 05/08/21 [Rx] Oxygen Therapy Mode: Room Air Patient Handouts: Fever, Adult, Sepsis, Diagnosis, Adult Referrals: Bishnu Long MD [Primary Care Provider] - 05/10/21 2:00 pm (This is the time to check in for your appointment.) - Discharge Summary/Plan Comment DC Time >30 min.: Yes Total # of Minutes for Discharge Time: 35 - General Info Date of Service: 05/08/21 Admission Dx/Problem (Free Text: Admission Diagnosis/Problem Admission Diagnosis/Problem Sepsis Subjective Update: No acute events overnight. No new nursing concerns. No constitutional symptoms. Patient taking good p.o. Ambulating without complication. Toileting without complication. Infectious work-up still remains negative. - Review of Systems General: Reports: No Symptoms HEENT: Reports: No Symptoms Pulmonary: Reports: No Symptoms Cardiovascular: Reports: No Symptoms Gastrointestinal: Reports: No Symptoms Genitourinary: Reports: No Symptoms Musculoskeletal: Reports: No Symptoms - Patient Data Vitals - Most Recent: Last Vital Signs Temp 98.2 F 05/08/21 07:57 Pulse 60 05/08/21 08:16 Resp 16 05/08/21 07:57 BP 158/98 H 05/08/21 08:16 Pulse Ox 98 05/08/21 07:57 Weight - Most Recent: 137 lb I&O - Last 24 hours: Intake & Output 05/07/21 05/08/21 05/08/21 22:59 06:59 14:59 Intake Total 720 350 Balance 720 350 Lab Results - Last 24 hrs: Laboratory Results - last 24 hr 05/07/21 05/07/21 05/07/21 Range/Units 06:10 10:52 16:07 WBC 3.33 L (3.98-10.04) K/mm3 RBC 3.12 L (3.98-5.22) M/mm3 Hgb 9.5 L (11.2-15.7) gm/dl Hct 31.6 L (34.1-44.9) % MCV 101.3 H (79.4-94.8) fl MCH 30.4 (25.6-32.2) pg MCHC 30.1 L (32.2-35.5) g/dl RDW Std Deviation 56.1 H (36.4-46.3) fL Plt Count 94 L (182-369) K/mm3 MPV 10.8 (9.4-12.3) fl Neut % (Auto) 54.4 (34.0-71.1) % Lymph % (Auto) 22.5 (19.3-51.7) % [place] % (Auto) 12.3 (4.7-12.5) % Eos % (Auto) 9.9 H (0.7-5.8) Baso % (Auto) 0.6 (0.1-1.2) % Neut # (Auto) 1.81 (1.56-6.13) K/mm3 Lymph # (Auto) 0.75 L (1.18-3.74) K/mm3 [place] # (Auto) 0.41 H (0.24-0.36) K/mm3 Eos # (Auto) 0.33 (0.04-0.36) K/mm3 Baso # (Auto) 0.02 (0.01-0.08) K/mm3 Manual Slide Review Abnormal smear Sodium (136-145) mEq/L Potassium (3.5-5.1) mEq/L Chloride (98-107) mEq/L Carbon Dioxide (21-32) mEq/L Anion Gap (5-15) BUN (7-18) mg/dL Creatinine (0.55-1.02) mg/dL Est Cr Clr Drug Dosing mL/min Estimated GFR (MDRD) (>60) mL/min BUN/Creatinine Ratio (14-18) Glucose (70-99) mg/dL POC Glucose 175 H (70-99) mg/dL Calcium (8.5-10.1) mg/dL 05/07/21 05/07/21 05/08/21 Range/Units 16:55 20:28 05:44 WBC (3.98-10.04) K/mm3 RBC (3.98-5.22) M/mm3 Hgb (11.2-15.7) gm/dl Hct (34.1-44.9) % MCV (79.4-94.8) fl MCH (25.6-32.2) pg MCHC (32.2-35.5) g/dl RDW Std Deviation (36.4-46.3) fL Plt Count (182-369) K/mm3 MPV (9.4-12.3) fl Neut % (Auto) (34.0-71.1) % Lymph % (Auto) (19.3-51.7) % [place] % (Auto) (4.7-12.5) % Eos % (Auto) (0.7-5.8) Baso % (Auto) (0.1-1.2) % Neut # (Auto) (1.56-6.13) K/mm3 Lymph # (Auto) (1.18-3.74) K/mm3 [place] # (Auto) (0.24-0.36) K/mm3 Eos # (Auto) (0.04-0.36) K/mm3 Baso # (Auto) (0.01-0.08) K/mm3 Manual Slide Review Sodium (136-145) mEq/L Potassium (3.5-5.1) mEq/L Chloride (98-107) mEq/L Carbon Dioxide (21-32) mEq/L Anion Gap (5-15) BUN (7-18) mg/dL Creatinine (0.55-1.02) mg/dL Est Cr Clr Drug Dosing mL/min Estimated GFR (MDRD) (>60) mL/min BUN/Creatinine Ratio (14-18) Glucose (70-99) mg/dL POC Glucose 82 157 H 109 H (70-99) mg/dL Calcium (8.5-10.1) mg/dL 05/08/21 05/08/21 Range/Units 05:46 05:46 WBC 3.31 L (3.98-10.04) K/mm3 RBC 3.15 L (3.98-5.22) M/mm3 Hgb 9.3 L (11.2-15.7) gm/dl Hct 31.3 L (34.1-44.9) % MCV 99.4 H (79.4-94.8) fl MCH 29.5 (25.6-32.2) pg MCHC 29.7 L (32.2-35.5) g/dl RDW Std Deviation 54.5 H (36.4-46.3) fL Plt Count 79 L (182-369) K/mm3 MPV 11.1 (9.4-12.3) fl Neut % (Auto) 49.5 (34.0-71.1) % Lymph % (Auto) 26.9 (19.3-51.7) % [place] % (Auto) 13.9 H (4.7-12.5) % Eos % (Auto) 9.4 H (0.7-5.8) Baso % (Auto) 0.3 (0.1-1.2) % Neut # (Auto) 1.64 (1.56-6.13) K/mm3 Lymph # (Auto) 0.89 L (1.18-3.74) K/mm3 [place] # (Auto) 0.46 H (0.24-0.36) K/mm3 Eos # (Auto) 0.31 (0.04-0.36) K/mm3 Baso # (Auto) 0.01 (0.01-0.08) K/mm3 Manual Slide Review Abnormal smear Sodium 144 (136-145) mEq/L Potassium 3.3 L (3.5-5.1) mEq/L Chloride 108 H (98-107) mEq/L Carbon Dioxide 26 (21-32) mEq/L Anion Gap 13.3 (5-15) BUN 6 L (7-18) mg/dL Creatinine 0.8 (0.55-1.02) mg/dL Est Cr Clr Drug Dosing 45.84 mL/min Estimated GFR (MDRD) > 60 (>60) mL/min BUN/Creatinine Ratio 7.5 L (14-18) Glucose 114 H (70-99) mg/dL POC Glucose (70-99) mg/dL Calcium 7.8 L (8.5-10.1) mg/dL TEE Results - Last 24 hrs: Microbiology 05/05/21 19:15 Blood Culture - Preliminary Blood - Venous - Iv Start 05/05/21 19:10 Blood Culture - Preliminary Blood - Venous Med Orders - Current: Current Medications Acetaminophen (Acetaminophen 325 Mg Tab) 650 mg PO Q4H PRN PRN Reason: Pain/Fever Last Admin: 05/08/21 03:01 Dose: 650 mg Documented by: Albuterol (Albuterol 0.083% 2.5 Mg/3 Ml Neb Soln) 2.5 mg NEB Q4HR PRN PRN Reason: wheeze Albuterol (Albuterol 6.7 Gm Inhaler) 0 gm INH Q4H PRN PRN Reason: Cough Amitriptyline HCl (Amitriptyline 25 Mg Tab) 25 mg PO BEDTIME [facility] Last Admin: 05/07/21 20:51 Dose: 25 mg Documented by: Atenolol (Atenolol 25 Mg Tab) 25 mg PO DAILY [facility] Last Admin: 05/08/21 08:16 Dose: 25 mg Documented by: Bisacodyl (Bisacodyl 10 Mg Supp) 10 mg RECTAL DAILY PRN PRN Reason: Constipation Folic Acid (Folic Acid 1 Mg Tab) 1 mg PO DAILY [facility] Last Admin: 05/08/21 08:16 Dose: 1 mg Documented by: Piperacillin Sod/Tazobactam (Sod 4.5 gm/ Sodium Chloride) 100 mls @ 25 mls/hr IV Q8H [facility] Last Admin: 05/08/21 01:25 Dose: 25 mls/hr Documented by: Insulin Glargine (Insulin Glargine,Hum.Rec.Anlog 100 Unit/Ml 3 Ml Pen) 5 unit SUBCUT BEDTIME [facility] Last Admin: 05/07/21 20:43 Dose: 5 units Documented by: Insulin Human Lispro (Insulin Lispro 100 Unit/Ml 3 Ml Kwikpen) 0 unit SUBCUT QIDACANDBED [facility]; Protocol Last Admin: 05/08/21 06:45 Dose: Not Given Documented by: Levofloxacin (Levofloxacin 750 Mg Tab) 750 mg PO Q48H [facility] Stop: 05/09/21 21:01 Last Admin: 05/07/21 20:50 Dose: 750 mg Documented by: Levothyroxine Sodium (Levothyroxine 50 Mcg Tab) 50 mcg PO ACBREAKFAST [facility] Last Admin: 05/08/21 05:48 Dose: 50 mcg Documented by: Loperamide HCl (Loperamide 2 Mg Cap) 2 mg PO DAILY PRN PRN Reason: Constipation Magnesium Oxide (Magnesium Oxide 400 Mg Tab) 400 mg PO BID [facility] Last Admin: 05/08/21 08:16 Dose: 400 mg Documented by: Nystatin (Nystatin Susp 100,000 Unit/Ml 5 Ml Ud Cup) 5 ml PO TID [facility] Last Admin: 05/08/21 08:15 Dose: 5 ml Documented by: Ondansetron HCl (Ondansetron 4 Mg Tab.Dis) 4 mg PO QID PRN PRN Reason: Nausea Pantoprazole Sodium (Pantoprazole 40 Mg Tab.Cr) 40 mg PO BID@0600,2100 [facility] Last Admin: 05/08/21 05:48 Dose: 40 mg Documented by: Prednisone (Prednisone 1 Mg Tab) 1 mg PO DAILY [facility] Last Admin: 05/08/21 08:16 Dose: 1 mg Documented by: Rosuvastatin Calcium (Rosuvastatin 10 Mg Tab) 20 mg PO BEDTIME [facility] Last Admin: 05/07/21 20:50 Dose: 20 mg Documented by: Temazepam (Temazepam 15 Mg Cap) 15 mg PO BEDTIME [facility] Last Admin: 05/08/21 03:02 Dose: 15 mg Documented by: Discontinued Medications Acetaminophen (Acetaminophen 325 Mg Tab) 650 mg PO NOW STA Stop: 05/05/21 18:44 Last Admin: 05/05/21 19:19 Dose: 650 mg Documented by: Amitriptyline HCl (Amitriptyline 25 Mg Tab) 25 mg PO DAILY [facility] Aspirin (Aspirin 81 Mg Tab.Chew) 324 mg PO ONETIME ONE Stop: 05/05/21 23:15 Last Admin: 05/05/21 23:20 Dose: 324 mg Documented by: Enoxaparin Sodium (Enoxaparin 40 Mg/0.4 Ml Syringe) 40 mg SUBCUT DAILY [facility] Dextrose/Sodium Chloride (Dextrose 5%-Normal Saline) 1,000 mls @ 150 mls/hr IV ASDIRECTED [facility] Last Admin: 05/05/21 19:19 Dose: 150 mls/hr Documented by: Dextrose/Sodium Chloride (Dextrose 5%-Normal Saline) 1,000 mls @ 999 mls/hr IV ASDIRECTED [facility] Levofloxacin/Dextrose 500 mg/ (Premix) 100 mls @ 100 mls/hr IV ONETIME ONE Stop: 05/05/21 21:09 Last Admin: 05/05/21 20:24 Dose: 100 mls/hr Documented by: Sodium Chloride (Normal Saline) 1,000 mls @ 150 mls/hr IV ASDIRECTED [facility] Last Admin: 05/06/21 01:22 MDT Dose: 150 mls/hr Documented by: Piperacillin Sod/Tazobactam (Sod 3.5 gm/ Sodium Chloride) 100 mls @ 200 mls/hr IV ONETIME ONE Stop: 05/06/21 00:46 Last Admin: 05/06/21 10:30 Dose: 200 mls/hr Documented by: Vancomycin HCl 1 gm/ Sodium (Chloride) 250 mls @ 250 mls/hr IV ONETIME ONE Stop: 05/06/21 01:16 MST Last Admin: 05/06/21 01:55 MDT Dose: 250 mls/hr Documented by: Piperacillin Sod/Tazobactam (Sod 3.5 gm/ Sodium Chloride) 78 mls @ 156 mls/hr IV ONETIME ONE Stop: 05/06/21 01:59 MST Last Admin: 05/06/21 01:52 [facility] Dose: Not Given Documented by: Piperacillin Sod/Tazobactam (Sod 4.5 gm/ Sodium Chloride) 100 mls @ 200 mls/hr IV ONETIME ONE Stop: 05/06/21 10:29 Last Admin: 05/06/21 10:15 Dose: 200 mls/hr Documented by: Vancomycin HCl 1 gm/ Sodium (Chloride) 250 mls @ 250 mls/hr IV Q24H [facility] Last Admin: 05/06/21 21:56 Dose: 250 mls/hr Documented by: Magnesium Sulfate 4 gm/ Premix 50 mls @ 12.5 mls/hr IV ONETIME ONE Stop: 05/06/21 15:48 Last Admin: 05/06/21 12:21 Dose: 12.5 mls/hr Documented by: Ibuprofen (Ibuprofen 400 Mg Tab) 400 mg PO Q6H PRN PRN Reason: Pain/Fever Magnesium Hydroxide (Magnesium Hydroxide 400 Mg/5 Ml Susp 30 Ml Cup) 30 ml PO ONETIME ONE Stop: 05/08/21 09:01 Last Admin: 05/08/21 08:17 Dose: Not Given Documented by: Nystatin (Nystatin Susp 100,000 Unit/Ml 5 Ml Ud Cup) 500,000 ml PO TID [facility] Last Admin: 05/06/21 17:10 Dose: Not Given Documented by: Potassium Chloride (Potassium Chloride 20 Meq Tab.Er) 40 meq PO ONETIME ONE Stop: 05/08/21 07:27 Last Admin: 05/08/21 08:16 Dose: 40 meq Documented by: Vancomycin HCl (Pharmacy To Dose - Vancomycin) 1 dose .XX ASDIRECTED PRN PRN Reason: RX TO DOSE VANCO - Exam Quality Assessment: Denies: Supplemental Oxygen General: Reports: Alert, Oriented HEENT: Reports: Pupils Equal, EOMI Neck: Reports: Supple Lungs: Reports: Clear to Auscultation, Normal Respiratory Effort Cardiovascular: Reports: Regular Rate GI/Abdominal Exam: Normal Bowel Sounds, Soft, Non-Tender Extremities: Normal Inspection, Normal Range of Motion Skin: Reports: Warm, Dry Neurological: Reports: No New Focal Deficit
[2021-05-08] MEDS ORDERED: Magnesium Hydroxide 400 MG/5 ML Susp 30 ML Cup PO ONE (09:00)
== END 2021-05-08 12:13 | disposition home or self-care (01) | DRG 872 ==
LOC: JD.ED 18:23 → SUPCPDRO 18:23 → JD.MS 23:12
PROVIDERS: ADMIT Family Medicine; ATTEND Family Medicine
DX: A41.9 Sepsis, unspecified organism (principal); R65.10 Systemic inflammatory response syndrome (SIRS) of non-infectious origin without acute organ dysfunction; A41.89 Other specified sepsis; E87.2 Acidosis; D61.818 Other pancytopenia; I24.8 Other forms of acute ischemic heart disease; Z95.1 Presence of aortocoronary bypass graft; Z87.11 Personal history of peptic ulcer disease; R32 Unspecified urinary incontinence; M19.90 Unspecified osteoarthritis, unspecified site; I25.10 Atherosclerotic heart disease of native coronary artery without angina pectoris; E11.9 Type 2 diabetes mellitus without complications; Z66 Do not resuscitate; H91.90 Unspecified hearing loss, unspecified ear; Z79.890 Hormone replacement therapy; H54.7 Unspecified visual loss; E78.00 Pure hypercholesterolemia, unspecified; Z20.822 Contact with and (suspected) exposure to COVID-19; I10 Essential (primary) hypertension; D64.9 Anemia, unspecified; E66.9 Obesity, unspecified; F03.90 Unspecified dementia, unspecified severity, without behavioral disturbance, psychotic disturbance, mood disturbance, and anxiety; E78.5 Hyperlipidemia, unspecified; Z79.01 Long term (current) use of anticoagulants; Z95.2 Presence of prosthetic heart valve; I25.2 Old myocardial infarction; Z79.4 Long term (current) use of insulin; Z79.899 Other long term (current) drug therapy; Z79.51 Long term (current) use of inhaled steroids; Z95.0 Presence of cardiac pacemaker; Z98.49 Cataract extraction status, unspecified eye; Z95.5 Presence of coronary angioplasty implant and graft; Z87.891 Personal history of nicotine dependence; Z79.52 Long term (current) use of systemic steroids; Z88.1 Allergy status to other antibiotic agents; Z68.25 Body mass index [BMI] 25.0-25.9, adult
CPT/HCPCS: 36415; 71045; 80053; 81001; 83605 ×2; 83615; 83735; 83880; 84145; 84443; 84484 ×2; 85007; 85027; 85610; 85652; 85730; 86140; 87040 ×2; 93005; 96365; 99285; A9270; J1956; J7042; U0002; 80048; 82947; 85025; 87641; 97161-GP; 99223; 99232; 99239; J1815; J2543; J3370; J3475; J7030; J7050; J7512

== ENCOUNTER 2021-11-05 19:33 | Emergency (ER) | payer MEDICARE, OTHER | END 2021-11-05 20:34 | disposition home or self-care (01) | LOC: JD.ED 19:33 | DX: I10 Essential (primary) hypertension (principal); I25.10 Atherosclerotic heart disease of native coronary artery without angina pectoris; E78.00 Pure hypercholesterolemia, unspecified; I25.2 Old myocardial infarction; E11.9 Type 2 diabetes mellitus without complications; Z90.49 Acquired absence of other specified parts of digestive tract; Z87.891 Personal history of nicotine dependence; Z88.1 Allergy status to other antibiotic agents; Z79.899 Other long term (current) drug therapy; Z79.4 Long term (current) use of insulin | CPT/HCPCS: 99283 ==

== ENCOUNTER → 2021-12-20 | Day surgery (SDC) | payer MEDICARE, OTHER ==
[2021-12-20] MEDS: Brimonidine 0.2% Ophth Soln 5 ML Bottle EYEBOTH SCH ×2 (15:28→17:05)
[2021-12-20] MEDS: Phenylephrine 2.5% Ophth Soln 2 ML Bot EYEBOTH SCH ×2 (15:40→15:50)
[2021-12-20] MEDS: Tropicamide 1% Ophth Soln 15 ML Bottle EYEBOTH SCH ×2 (15:45→15:57)
== END ==
LOC: JD.SDS 16:22
PROVIDERS: ATTEND Ophthalmology
DX: E10.36 Type 1 diabetes mellitus with diabetic cataract (principal); H26.493 Other secondary cataract, bilateral; H35.363 Drusen (degenerative) of macula, bilateral; H35.3131 Nonexudative age-related macular degeneration, bilateral, early dry stage; H16.103 Unspecified superficial keratitis, bilateral; H16.223 Keratoconjunctivitis sicca, not specified as Sjogren's, bilateral; H02.831 Dermatochalasis of right upper eyelid; Z96.1 Presence of intraocular lens; J44.9 Chronic obstructive pulmonary disease, unspecified; I10 Essential (primary) hypertension; E78.00 Pure hypercholesterolemia, unspecified; Z86.73 Personal history of transient ischemic attack (TIA), and cerebral infarction without residual deficits; K21.9 Gastro-esophageal reflux disease without esophagitis; Z79.899 Other long term (current) drug therapy

== ENCOUNTER 2022-04-02 20:45 | Inpatient (IN) | payer MEDICARE, OTHER ==
[2022-04-02] MEDS ORDERED: Albuterol/Ipratropium 3.0-0.5 MG/3 ML Neb Soln ONE (22:04)
[2022-04-02 22:54] LABS: ESTIMATED GFR 65 mL/min (>60)
[2022-04-02 23:04] LABS: CORONAVIRUS COVID-19 NAA NEGATIVE (NEGATIVE)
[2022-04-03] MEDS ORDERED: Azithromycin 500 MG Vial ONE (00:28)
[2022-04-03] MEDS ORDERED: Piperacillin/Tazobactam 4.5 GM Vial ONE (00:29)
[2022-04-03] MEDS ORDERED: Sodium Chloride 0.9% 250 ML ONE (00:46)
[2022-04-03] MEDS ORDERED: Sodium Chloride 0.9% 100 ML ONE (00:46)
[2022-04-03] MEDS ORDERED: Azithromycin 500 MG in Sodium Chloride 0.9% 500 ML IV ONE (01:12)
[2022-04-03] MEDS ORDERED: Piperacillin/Tazobactam 4.5 GM in Sodium Chloride 0.9% 100 ML IV ONE ×2 (01:30→21:00)
[2022-04-03] MEDS ORDERED: Insulin Glargine,Human Rec. Analog 100 Units/ML 3 ML Pen SUBCUT SCH (09:00)
[2022-04-03] MEDS: Albuterol/Ipratropium 3.0-0.5 MG/3 ML Neb Soln NEB PRN (10:01)
[2022-04-03] MEDS ORDERED: Donepezil 10 MG Tab PO ONE (21:00)
[2022-04-03] MEDS ORDERED: Heparin Sodium 5,000 Units/ML Vial SUBCUT ONE (21:00)
[2022-04-03] MEDS ORDERED: Amitriptyline 25 MG Tab PO ONE (21:00)
[2022-04-03] MEDS ORDERED: Rosuvastatin 10 MG Tab PO ONE (21:00)
[2022-04-04] MEDS ORDERED: Levothyroxine 50 MCG Tab PO ONE (05:00)
[2022-04-04] MEDS ORDERED: Heparin Sodium 5,000 Units/ML Vial SUBCUT ONE (06:00)
[2022-04-04] MEDS ORDERED: amLODIPine 5 MG Tab PO ONE (08:50)
[2022-04-04] MEDS ORDERED: Piperacillin/Tazobactam 4.5 GM in Sodium Chloride 0.9% 100 ML IV ONE (08:50)
[2022-04-04] MEDS ORDERED: Atenolol 25 MG Tab PO ONE (08:50)
[2022-04-04] MEDS ORDERED: predniSONE 5 MG Tab PO ONE (08:50)
[2022-04-04] MEDS ORDERED: Magnesium Sulfate/Water 2 GM in Premix Bag 1 BAG IV ONE (10:00)
[2022-04-04] MEDS: Albuterol/Ipratropium 3.0-0.5 MG/3 ML Neb Soln NEB PRN ×4 (10:28→22:31)
[2022-04-04] MEDS ORDERED: Azithromycin 500 MG in Sodium Chloride 0.9% 250 ML IV ONE (10:45)
[2022-04-04] MEDS ORDERED: Donepezil 10 MG Tab PO ONE (21:00)
[2022-04-04] MEDS ORDERED: Amitriptyline 25 MG Tab PO ONE (21:00)
[2022-04-04] MEDS ORDERED: Rosuvastatin 10 MG Tab PO ONE (21:00)
[2022-04-05] MEDS ORDERED: Levothyroxine 50 MCG Tab PO ONE (05:00)
[2022-04-05] MEDS ORDERED: Piperacillin/Tazobactam 4.5 GM in Sodium Chloride 0.9% 100 ML IV ONE (06:00)
[2022-04-05] MEDS ORDERED: Heparin Sodium 5,000 Units/ML Vial SUBCUT ONE (06:00)
[2022-04-05] MEDS: Albuterol/Ipratropium 3.0-0.5 MG/3 ML Neb Soln NEB PRN ×4 (08:01→19:07)
[2022-04-05] MEDS ORDERED: amLODIPine 5 MG Tab PO ONE (09:00)
[2022-04-05] MEDS ORDERED: predniSONE 5 MG Tab PO ONE (09:00)
[2022-04-05] MEDS ORDERED: Atenolol 25 MG Tab PO ONE (09:00)
[2022-04-05] MEDS ORDERED: Insulin Lispro 100 Unit/ML 3 ML KwikPen SUBCUT SCH (09:00)
[2022-04-05] MEDS ORDERED: Azithromycin 500 MG in Sodium Chloride 0.9% 250 ML IV ONE (10:00)
[2022-04-05] MEDS ORDERED: Losartan 100 MG Tab PO ONE (13:10)
[2022-04-05] MEDS ORDERED: Vancomycin 125 MG Cap PO ONE (14:27)
[2022-04-05] MEDS ORDERED: Donepezil 10 MG Tab PO ONE (21:00)
[2022-04-05] MEDS ORDERED: Amitriptyline 25 MG Tab PO ONE (21:00)
[2022-04-05] MEDS ORDERED: Rosuvastatin 10 MG Tab PO ONE (21:00)
[2022-04-06] MEDS ORDERED: Piperacillin/Tazobactam 4.5 GM in Sodium Chloride 0.9% 100 ML IV ONE (06:00)
[2022-04-06] MEDS ORDERED: Heparin Sodium 5,000 Units/ML Vial SUBCUT ONE (06:00)
[2022-04-06] MEDS ORDERED: Levothyroxine 50 MCG Tab PO ONE (06:00)
[2022-04-06] MEDS: Albuterol/Ipratropium 3.0-0.5 MG/3 ML Neb Soln NEB PRN ×4 (07:24→19:27)
[2022-04-06] MEDS ORDERED: Losartan 100 MG Tab PO ONE (09:00)
[2022-04-06] MEDS ORDERED: Vancomycin 125 MG Cap PO ONE (09:00)
[2022-04-06] MEDS ORDERED: Atenolol 25 MG Tab PO ONE (09:00)
[2022-04-06] MEDS ORDERED: amLODIPine 5 MG Tab PO ONE (09:00)
[2022-04-06] MEDS ORDERED: predniSONE 5 MG Tab PO ONE (09:00)
[2022-04-06] MEDS ORDERED: Azithromycin 500 MG in Sodium Chloride 0.9% 250 ML IV ONE (09:00)
[2022-04-06] MEDS ORDERED: Amitriptyline 25 MG Tab PO ONE (21:00)
[2022-04-06] MEDS ORDERED: Donepezil 10 MG Tab PO ONE (21:00)
[2022-04-06] MEDS ORDERED: Rosuvastatin 10 MG Tab PO ONE (21:00)
[2022-04-07] MEDS: Albuterol/Ipratropium 3.0-0.5 MG/3 ML Neb Soln NEB PRN ×2 (08:45→13:46)
== END 2022-04-07 14:40 | disposition home or self-care (01) | DRG 194 ==
LOC: JD.ED 20:45 → JD.ZCENSUS 04-03 12:30
PROVIDERS: ADMIT Hospitalist; ATTEND Hospitalist
DX: J18.9 Pneumonia, unspecified organism (principal); A04.72 Enterocolitis due to Clostridium difficile, not specified as recurrent; J44.0 Chronic obstructive pulmonary disease with (acute) lower respiratory infection; D69.6 Thrombocytopenia, unspecified; E11.9 Type 2 diabetes mellitus without complications; Z66 Do not resuscitate; Z20.822 Contact with and (suspected) exposure to COVID-19; E03.9 Hypothyroidism, unspecified; F03.90 Unspecified dementia, unspecified severity, without behavioral disturbance, psychotic disturbance, mood disturbance, and anxiety; I25.10 Atherosclerotic heart disease of native coronary artery without angina pectoris; D64.9 Anemia, unspecified; E83.42 Hypomagnesemia; Z79.899 Other long term (current) drug therapy
CPT/HCPCS: 0241U; 36415; 71045; 71045-26; 80048; 80053; 82565; 82947; 83605; 83735; 85025; 87324; 87493; 94640; 94668; 94761; 94762; 96365; 96366; 99222; 99232; 99238; 99285; 99285-25; A9270-GY; J0456; J1644; J1815; J1815-GY; J2543; J3475; J7040; J7050; J7512; J7620-GY

== ENCOUNTER 2022-11-22 07:51 | Emergency (ER) | payer MEDICARE, OTHER ==
[2022-11-22] MEDS ORDERED: Sodium Chloride 0.9% 10 ML Syringe FLUSH PRN ×2 (07:56→10:51)
[2022-11-22] MEDS ORDERED: Sodium Chloride 0.9% 1,000 ML IV SCH (08:00)
[2022-11-22 08:44] LABS: BASOPHILS ABSOLUTE AUTO 0.02 K/mm3 (0.01-0.08); BASOPHILS PERCENT AUTO 0.2 % (0.1-1.2); EOSINOPHILS ABSOLUTE AUTO 0.03 K/mm3 (0.04-0.36); EOSINOPHILS PERCENT AUTO 0.4 (0.7-5.8); HEMATOCRIT 26.6 % (34.1-44.9); HEMOGLOBIN 7.7 gm/dl (11.2-15.7); IMMATURE GRAN ABSOLUTE AUTO 0.03 K/mm3 (0.00-0.10); IMMATURE GRAN PERCENT AUTO 0.4 % (<=1.0); LYMPHOCYTES ABSOLUTE AUTO 0.93 K/mm3 (1.18-3.74); LYMPHOCYTES PERCENT AUTO 10.9 % (19.3-51.7); MEAN CORPUSCULAR HEMOGLOBIN 29.4 pg (25.6-32.2); MEAN CORPUSCULAR HGB CONC 28.9 g/dl (32.2-35.5); MEAN CORPUSCULAR VOLUME 101.5 fl (79.4-94.8); MEAN PLATELET VOLUME 10.6 fl (9.4-12.3); MONOCYTES ABSOLUTE AUTO 0.85 K/mm3 (0.24-0.36); MONOCYTES PERCENT AUTO 9.9 % (4.7-12.5); NEUTROPHILS ABSOLUTE AUTO 6.69 K/mm3 (1.56-6.13); NEUTROPHILS PERCENT AUTO 78.2 % (34.0-71.1); PLATELET COUNT,PLT 115 K/mm3 (182-369); RED BLOOD CELL COUNT 2.62 M/mm3 (3.98-5.22); WHITE BLOOD CELL COUNT,WBC 8.55 K/mm3 (3.98-10.04)
[2022-11-22 09:04] LABS: A/G RATIO 0.8 (1-2); ALBUMIN 2.8 g/dl (3.4-5.0); ANION GAP 19.7 (5-15); BILIRUBIN TOTAL 0.4 mg/dL (0.2-1.0); BUN/CREATININE RATIO 13.3 (14-18); C-REACTIVE PROTEIN 1.4 mg/dL (<1.0); CALCIUM 8.3 mg/dL (8.5-10.1); CREATININE 1.5 mg/dL (0.55-1.02); EST CRCL DRUG DOSING (CG) 28.47 mL/min; MAGNESIUM 1.8 mg/dL (1.8-2.4); POTASSIUM,K 4.7 mEq/L (3.5-5.1); PROTEIN TOTAL,TP 6.5 g/dl (6.4-8.2)
[2022-11-22 09:37] LABS: APPEARANCE,URINE CLEAR (Clear); BILIRUBIN,URINE NEGATIVE (Negative); COLOR,URINE YELLOW (Yellow); GLUCOSE,URINE NEGATIVE (Negative); KETONES,URINE TRACE (Negative); LEUKOCYTE ESTERASE,URINE NEGATIVE (Negative); NITRITE,URINE POSITIVE (Negative); OCCULT BLOOD,URINE 2+ (Negative); PROTEIN,URINE 2+ (Negative); UROBILINOGEN,URINE 0.2 (0.2-1.0)
[2022-11-22] MEDS ORDERED: Aspirin 81 MG Tab.Chew PO ONE (09:41)
[2022-11-22] MEDS ORDERED: Heparin Sodium 5,000 Units/ML Vial IVPUSH ONE (09:41)
[2022-11-22] MEDS ORDERED: Heparin Sodium/D5W 25,000 UNITS/500 ML BAG IV SCH (09:45)
[2022-11-22 10:07] LABS: SLIDE REVIEW ABNORMAL SMEAR
[2022-11-22] MEDS ORDERED: Iopamidol 612 MG/ML 100 ML Bottle IVPUSH ONE (10:51)
[2022-11-22] MEDS ORDERED: Piperacillin/Tazobactam 4.5 GM in Sodium Chloride 0.9% 100 ML IV ONE (10:56)
[2022-11-22] MEDS ORDERED: Vancomycin 2 GM in Sodium Chloride 0.9% 500 ML IV ONE (10:57)
[2022-11-22] MEDS ORDERED: VANCOmycin 2 GM/400 ML 2 GM in Premix Bag 1 BAG IV ONE (11:30)
[2022-11-22 12:02] LABS: LACTIC ACID 4.4 mmol/L (0.4-2.0)
[2022-11-22 15:03] LABS: BACTERIA,URINE MANY /hpf (FEW); HYALINE CASTS,URINE 0-5 /lpf (0-5); MUCUS,URINE NOT SEEN /hpf (FEW); SQUAMOUS EPITHELIAL CELLS,UR 0-5 /hpf (0-5); WBC,URINE 0-5 /hpf (0-5)
== END 2022-11-22 14:45 ==
LOC: JD.ED 07:51
DX: A41.9 Sepsis, unspecified organism (principal); N30.00 Acute cystitis without hematuria; I21.4 Non-ST elevation (NSTEMI) myocardial infarction; I50.9 Heart failure, unspecified; N28.9 Disorder of kidney and ureter, unspecified; I25.10 Atherosclerotic heart disease of native coronary artery without angina pectoris; E78.00 Pure hypercholesterolemia, unspecified; I10 Essential (primary) hypertension; I25.2 Old myocardial infarction; E11.9 Type 2 diabetes mellitus without complications; M19.90 Unspecified osteoarthritis, unspecified site; Z88.1 Allergy status to other antibiotic agents; Z79.899 Other long term (current) drug therapy; Z79.4 Long term (current) use of insulin; Z95.2 Presence of prosthetic heart valve; Z95.1 Presence of aortocoronary bypass graft
CPT/HCPCS: 36415; 70450; 71045; 71260; 74177; 80053; 81001; 82947; 83605; 83690; 83735; 84484; 85025; 86140; 86850; 86870; 86900; 86901; 87040; 87086; 87088; 87186; 93005; 96361; 96365; 96366; 96368; 96375; 99285; A9270; J1644; J2543; J3370; J3490; J7030; Q9967

== ENCOUNTER 2023-02-06 11:55 | Inpatient (IN) | payer MEDICARE, OTHER ==
[2023-02-06 13:45] LABS: BASOPHILS ABSOLUTE AUTO 0.01 K/mm3 (0.01-0.08); BASOPHILS PERCENT AUTO 0.2 % (0.1-1.2); EOSINOPHILS ABSOLUTE AUTO 0.05 K/mm3 (0.04-0.36); EOSINOPHILS PERCENT AUTO 0.9 (0.7-5.8); HEMATOCRIT 29.8 % (34.1-44.9); HEMOGLOBIN 8.6 gm/dl (11.2-15.7); IMMATURE GRAN ABSOLUTE AUTO 0.01 K/mm3 (0.00-0.10); IMMATURE GRAN PERCENT AUTO 0.2 % (<=1.0); LYMPHOCYTES ABSOLUTE AUTO 0.57 K/mm3 (1.18-3.74); LYMPHOCYTES PERCENT AUTO 9.8 % (19.3-51.7); MEAN CORPUSCULAR HEMOGLOBIN 30.3 pg (25.6-32.2); MEAN CORPUSCULAR HGB CONC 28.9 g/dl (32.2-35.5); MEAN CORPUSCULAR VOLUME 104.9 fl (79.4-94.8); MEAN PLATELET VOLUME 11.1 fl (9.4-12.3); MONOCYTES ABSOLUTE AUTO 0.48 K/mm3 (0.24-0.36); MONOCYTES PERCENT AUTO 8.2 % (4.7-12.5); NEUTROPHILS PERCENT AUTO 80.7 % (34.0-71.1); PLATELET COUNT,PLT 96 K/mm3 (182-369); RED BLOOD CELL COUNT 2.84 M/mm3 (3.98-5.22); WHITE BLOOD CELL COUNT,WBC 5.82 K/mm3 (3.98-10.04)
[2023-02-06 13:56] LABS: APPEARANCE,URINE CLEAR (Clear); BILIRUBIN,URINE NEGATIVE (Negative); COLOR,URINE YELLOW (Yellow); GLUCOSE,URINE NEGATIVE (Negative); KETONES,URINE TRACE (Negative); LEUKOCYTE ESTERASE,URINE NEGATIVE (Negative); NITRITE,URINE NEGATIVE (Negative); OCCULT BLOOD,URINE NEGATIVE (Negative); PROTEIN,URINE 1+ (Negative); UROBILINOGEN,URINE 0.2 (0.2-1.0)
[2023-02-06 13:58] LABS: INR 1.08; PROTHROMBIN TIME 11.5 SECONDS (9.7-12.0)
[2023-02-06 13:59] LABS: PTT,PARTIAL THROMBOPLSTIN TIME 25.4 SECONDS (21.7-31.4)
[2023-02-06 14:03] LABS: A/G RATIO 0.8 (1-2); ALBUMIN 2.9 g/dl (3.4-5.0); ANION GAP 14.3 (5-15); BILIRUBIN TOTAL 0.4 mg/dL (0.2-1.0); BUN/CREATININE RATIO 21.1 (14-18); CALCIUM 8.4 mg/dL (8.5-10.1); CREATININE 0.9 mg/dL (0.55-1.02); EST CRCL DRUG DOSING (CG) 40.09 mL/min; MAGNESIUM 1.7 mg/dL (1.8-2.4); POTASSIUM,K 4.3 mEq/L (3.5-5.1); PROTEIN TOTAL,TP 6.4 g/dl (6.4-8.2)
[2023-02-06 14:14] LABS: LACTIC ACID 2.2 mmol/L (0.4-2.0)
[2023-02-06] MEDS ORDERED: Lactated Ringers 500 ML IV ONE (14:32)
[2023-02-06 15:31] LABS: RBC,URINE 0-5 /hpf (0-5); WBC,URINE 0-5 /hpf (0-5)
[2023-02-06 15:32] LABS: BACTERIA,URINE FEW /hpf (FEW); MUCUS,URINE NOT SEEN /hpf (FEW)
[2023-02-06 16:48] LABS: SLIDE REVIEW ABNORMAL SMEAR
[2023-02-06] MEDS ORDERED: Albuterol/Ipratropium 3.0-0.5 MG/3 ML Neb Soln NEB PRN (16:53)
[2023-02-06] MEDS ORDERED: Sodium Chloride 0.9% 10 ML Syringe FLUSH PRN (16:53)
[2023-02-06] MEDS ORDERED: Ondansetron 4 MG Tab.DIS PO PRN (16:53)
[2023-02-06] MEDS ORDERED: Zolpidem 5 MG Tab PO PRN (16:53)
[2023-02-06] MEDS ORDERED: Docusate Sodium 100 MG Cap PO PRN (16:53)
[2023-02-06] MEDS ORDERED: Ondansetron 4 MG/2 ML SDV IV PRN (16:53)
[2023-02-06] MEDS ORDERED: methylPREDNISolone Sodium Succinate 40 MG/1 ML SDV IVPUSH SCH (17:00)
[2023-02-06] MEDS ORDERED: Albuterol/Ipratropium 3.0-0.5 MG/3 ML Neb Soln NEB SCH (17:00)
[2023-02-06] MEDS ORDERED: methylPREDNISolone Sodium Succinate 125 MG/2 ML SDV ONE (17:36)
[2023-02-06] MEDS: Heparin Sodium 5,000 Units/ML Vial SUBCUT SCH (17:44)
[2023-02-06] MEDS: methylPREDNISolone Sodium Succinate 125 MG/2 ML SDV IVPUSH SCH (18:08)
[2023-02-06] MEDS: Albuterol/Ipratropium 3.0-0.5 MG/3 ML Neb Soln NEB SCH (21:16)
[2023-02-07] MEDS: methylPREDNISolone Sodium Succinate 125 MG/2 ML SDV IVPUSH SCH ×3 (01:39→18:48)
[2023-02-07] MEDS: Heparin Sodium 5,000 Units/ML Vial SUBCUT SCH ×3 (01:44→18:48)
[2023-02-07] MEDS: Albuterol/Ipratropium 3.0-0.5 MG/3 ML Neb Soln NEB SCH ×6 (01:54→22:03)
[2023-02-07 06:11] LABS: EOSINOPHILS ABSOLUTE AUTO 0.01 K/mm3 (0.04-0.36); EOSINOPHILS PERCENT AUTO 0.2 (0.7-5.8); HEMATOCRIT 30.4 % (34.1-44.9); IMMATURE GRAN ABSOLUTE AUTO 0.01 K/mm3 (0.00-0.10); IMMATURE GRAN PERCENT AUTO 0.2 % (<=1.0); LYMPHOCYTES ABSOLUTE AUTO 0.59 K/mm3 (1.18-3.74); LYMPHOCYTES PERCENT AUTO 10.5 % (19.3-51.7); MEAN CORPUSCULAR HEMOGLOBIN 30.3 pg (25.6-32.2); MEAN CORPUSCULAR HGB CONC 29.6 g/dl (32.2-35.5); MEAN CORPUSCULAR VOLUME 102.4 fl (79.4-94.8); MEAN PLATELET VOLUME 11.3 fl (9.4-12.3); MONOCYTES ABSOLUTE AUTO 0.12 K/mm3 (0.24-0.36); MONOCYTES PERCENT AUTO 2.1 % (4.7-12.5); NEUTROPHILS ABSOLUTE AUTO 4.88 K/mm3 (1.56-6.13); PLATELET COUNT,PLT 99 K/mm3 (182-369); RED BLOOD CELL COUNT 2.97 M/mm3 (3.98-5.22); WHITE BLOOD CELL COUNT,WBC 5.61 K/mm3 (3.98-10.04)
[2023-02-07 06:25] LABS: ANION GAP 16.3 (5-15); CALCIUM 8.6 mg/dL (8.5-10.1); EST CRCL DRUG DOSING (CG) 36.08 mL/min; POTASSIUM,K 4.3 mEq/L (3.5-5.1)
[2023-02-07 06:54] LABS: SLIDE REVIEW ABNORMAL SMEAR
[2023-02-07] MEDS ORDERED: Loperamide 2 MG Cap PO PRN (10:07)
[2023-02-07] MEDS ORDERED: Meclizine 12.5 MG Tab PO PRN (10:07)
[2023-02-07] MEDS ORDERED: hydrOXYzine HCl 25 MG Tab PO PRN (10:07)
[2023-02-07] MEDS ORDERED: Triamcinolone Acetonide 0.1% Crm 15 GM Tube TOP PRN (10:07)
[2023-02-07] MEDS: Acetaminophen 325 MG Tab PO PRN ×2 (10:10→21:01)
[2023-02-07] MEDS ORDERED: Nitrofurantoin Monohydrate/Macrocrystalline 100 MG Cap PO SCH (11:00)
[2023-02-07] MEDS ORDERED: Acetaminophen/Butalbital/Caffeine 325-50-40 MG Tab PO PRN (11:02)
[2023-02-07] MEDS: Nitroglycerin 0.3 MG Tab.SL SL PRN ×2 (12:01→12:22)
[2023-02-07] MEDS ORDERED: Benzonatate 100 MG Cap PO PRN (18:50)
[2023-02-07] MEDS: Pantoprazole 40 MG Tab.CR PO SCH (21:00)
[2023-02-07] MEDS ORDERED: Melatonin 3 MG Tab PO SCH (21:00)
[2023-02-07] MEDS ORDERED: Donepezil 10 MG Tab PO SCH (21:00)
[2023-02-07] MEDS ORDERED: Mirtazapine 30 MG Tab PO SCH (21:00)
[2023-02-08] MEDS: Albuterol/Ipratropium 3.0-0.5 MG/3 ML Neb Soln NEB SCH ×3 (02:14→12:34)
[2023-02-08] MEDS: Heparin Sodium 5,000 Units/ML Vial SUBCUT SCH ×2 (02:56→11:09)
[2023-02-08] MEDS: methylPREDNISolone Sodium Succinate 125 MG/2 ML SDV IVPUSH SCH ×2 (02:56→11:10)
[2023-02-08] MEDS ORDERED: Levothyroxine 50 MCG Tab PO SCH (06:00)
[2023-02-08] MEDS ORDERED: Saccharomyces Boulardii (Probiotic) 250 MG Cap PO SCH (09:00)
[2023-02-08] MEDS ORDERED: Rosuvastatin 10 MG Tab PO SCH (09:00)
[2023-02-08] MEDS ORDERED: Folic Acid 1 MG Tab PO SCH (09:00)
[2023-02-08] MEDS ORDERED: Non-Formulary Medication 1 Each (Mirabegron 25 MG Tab.Er) PO SCH (09:00)
[2023-02-08] MEDS ORDERED: predniSONE 5 MG Tab PO SCH (09:00)
[2023-02-08] MEDS ORDERED: Atenolol 25 MG Tab PO SCH (09:00)
[2023-02-08] MEDS: Pantoprazole 40 MG Tab.CR PO SCH (11:10)
== END 2023-02-08 12:10 | disposition home or self-care (01) | DRG 189 ==
LOC: JD.ED 11:55 → JD.MS 16:53
PROVIDERS: ADMIT Hospitalist; ATTEND Hospitalist
DX: J96.01 Acute respiratory failure with hypoxia (principal); I21.A1 Myocardial infarction type 2; J44.1 Chronic obstructive pulmonary disease with (acute) exacerbation; N39.0 Urinary tract infection, site not specified; E87.20 Acidosis, unspecified; I13.0 Hypertensive heart and chronic kidney disease with heart failure and stage 1 through stage 4 chronic kidney disease, or unspecified chronic kidney disease; R07.9 Chest pain, unspecified; R09.02 Hypoxemia; E86.0 Dehydration; M19.90 Unspecified osteoarthritis, unspecified site; G43.909 Migraine, unspecified, not intractable, without status migrainosus; I44.0 Atrioventricular block, first degree; Z66 Do not resuscitate; I50.9 Heart failure, unspecified; D63.1 Anemia in chronic kidney disease; E03.9 Hypothyroidism, unspecified; K21.9 Gastro-esophageal reflux disease without esophagitis; N18.9 Chronic kidney disease, unspecified; E11.22 Type 2 diabetes mellitus with diabetic chronic kidney disease; I25.2 Old myocardial infarction; Z88.8 Allergy status to other drugs, medicaments and biological substances; F03.90 Unspecified dementia, unspecified severity, without behavioral disturbance, psychotic disturbance, mood disturbance, and anxiety; I10 Essential (primary) hypertension; I25.10 Atherosclerotic heart disease of native coronary artery without angina pectoris; Z98.49 Cataract extraction status, unspecified eye; Z98.890 Other specified postprocedural states; E11.9 Type 2 diabetes mellitus without complications; E78.00 Pure hypercholesterolemia, unspecified; Z90.49 Acquired absence of other specified parts of digestive tract; Z87.891 Personal history of nicotine dependence; Z79.4 Long term (current) use of insulin; Z79.82 Long term (current) use of aspirin; Z79.899 Other long term (current) drug therapy; Z95.0 Presence of cardiac pacemaker; Z95.2 Presence of prosthetic heart valve; Z95.1 Presence of aortocoronary bypass graft
CPT/HCPCS: 36415; 70450; 71045; 80053; 81001; 82550; 82947; 83605 ×2; 83735; 84484 ×2; 85025; 85610; 85730; 87040 ×2; 87086; 93005; 96360; 99285; J7120; 80048; 87641; 93010; 94640; 94761; 94762; 97161-GP; 99223; 99232; 99238; A9270-GY; J1644; J2930; J7620-GY

== ENCOUNTER 2023-11-08 21:29 | Emergency (ER) | payer MEDICARE, OTHER ==
[2023-11-08] MEDS: Acetaminophen 325 MG Tab PO ONE (21:50)
[2023-11-08 21:55] LABS: BASOPHILS PERCENT AUTO 0.4 % (0.0-1.0); EOSINOPHILS PERCENT AUTO 0.7 % (0.0-6.0); HEMATOCRIT 29.3 % (37.0-47.0); HEMOGLOBIN 8.7 gm/dl (12.0-16.0); IMMATURE GRAN ABSOLUTE AUTO 0.03 K/mm3 (0.00-0.05); IMMATURE GRAN PERCENT AUTO 0.5 % (0.0-0.4); LYMPHOCYTES ABSOLUTE AUTO 0.9 K/mm3 (1.0-4.8); LYMPHOCYTES PERCENT AUTO 16.1 % (24.0-44.0); MEAN CORPUSCULAR HEMOGLOBIN 32.1 pg (28.0-32.0); MEAN CORPUSCULAR HGB CONC 29.7 g/dl (32.0-36.0); MEAN CORPUSCULAR VOLUME 108.1 fl (83.0-99.0); MEAN PLATELET VOLUME 12.4 fl (9.4-12.3); MONOCYTES ABSOLUTE AUTO 0.6 K/mm3 (0.0-0.8); MONOCYTES PERCENT AUTO 10.5 % (0.0-8.0); NEUTROPHILS PERCENT AUTO 71.8 % (41.0-71.0); PLATELET COUNT,PLT 88 K/mm3 (150-400); RED BLOOD CELL COUNT 2.71 M/mm3 (4.10-5.30); WHITE BLOOD CELL COUNT,WBC 5.53 K/mm3 (3.9-11.3)
[2023-11-08 22:17] LABS: ALBUMIN 3.5 g/dl (3.4-5.0); ANION GAP 10.3 (5-15); BILIRUBIN TOTAL 0.5 mg/dL (0.2-1.0); BUN/CREATININE RATIO 13.8 (14-18); CALCIUM 8.6 mg/dL (8.5-10.1); CREATININE 1.3 mg/dL (0.55-1.02); EST CRCL DRUG DOSING (CG) 27.3 mL/min; POTASSIUM,K 3.3 mEq/L (3.5-5.1); PROTEIN TOTAL,TP 7.2 g/dl (6.4-8.2)
[2023-11-08] MEDS: Sodium Chloride 0.9% 500 ML IV ONE (22:50)
== END 2023-11-09 00:40 | disposition home or self-care (01) ==
LOC: JD.ED 21:29
DX: S00.83XA Contusion of other part of head, initial encounter (principal); I10 Essential (primary) hypertension; I25.2 Old myocardial infarction; I25.10 Atherosclerotic heart disease of native coronary artery without angina pectoris; M19.90 Unspecified osteoarthritis, unspecified site; E11.9 Type 2 diabetes mellitus without complications; Z88.8 Allergy status to other drugs, medicaments and biological substances; Z79.82 Long term (current) use of aspirin; Z79.4 Long term (current) use of insulin; Z79.890 Hormone replacement therapy; Z79.899 Other long term (current) drug therapy; Z90.49 Acquired absence of other specified parts of digestive tract; W01.0XXA Fall on same level from slipping, tripping and stumbling without subsequent striking against object, initial encounter
CPT/HCPCS: 36415; 70450; 70486; 72125; 80053; 85025; 96360; 99284; A9270; J7030; 99283

== ENCOUNTER 2024-01-22 12:11 | Emergency (ER) | payer MEDICARE, OTHER ==
[2024-01-22] MEDS: Potassium Chloride 10 MEQ in Premix Bag 1 BAG IV SCH (14:04)
[2024-01-22] MEDS: Lactated Ringers 1,000 ML IV SCH (14:05)
[2024-01-22 14:09] LABS: BASOPHILS PERCENT AUTO 0.1 % (0.0-1.0); HEMATOCRIT 33.9 % (37.0-47.0); IMMATURE GRAN ABSOLUTE AUTO 0.08 K/mm3 (0.00-0.05); LYMPHOCYTES ABSOLUTE AUTO 0.3 K/mm3 (1.0-4.8); LYMPHOCYTES PERCENT AUTO 4.1 % (24.0-44.0); MEAN CORPUSCULAR HEMOGLOBIN 34.2 pg (28.0-32.0); MEAN CORPUSCULAR HGB CONC 32.4 g/dl (32.0-36.0); MEAN CORPUSCULAR VOLUME 105.3 fl (83.0-99.0); MEAN PLATELET VOLUME 11.9 fl (9.4-12.3); MONOCYTES ABSOLUTE AUTO 0.5 K/mm3 (0.0-0.8); MONOCYTES PERCENT AUTO 5.9 % (0.0-8.0); NEUTROPHILS ABSOLUTE AUTO 6.9 K/mm3 (1.8-7.7); NEUTROPHILS PERCENT AUTO 88.9 % (41.0-71.0); PLATELET COUNT,PLT 44 K/mm3 (150-400); RED BLOOD CELL COUNT 3.22 M/mm3 (4.10-5.30)
[2024-01-22 14:36] LABS: A/G RATIO 0.9 (1-2); ALBUMIN 2.9 g/dl (3.4-5.0); ANION GAP 11.3 (5-15); BILIRUBIN TOTAL 1.2 mg/dL (0.2-1.0); CALCIUM 7.8 mg/dL (8.5-10.1); EST CRCL DRUG DOSING (CG) 17.74 mL/min; MAGNESIUM 1.2 mg/dL (1.8-2.4); PROTEIN TOTAL,TP 6.2 g/dl (6.4-8.2)
[2024-01-22 14:40] LABS: POTASSIUM,K 2.3 mEq/L (3.5-5.1)
[2024-01-22 15:06] LABS: SLIDE REVIEW ABNORMAL SMEAR
[2024-01-22 15:25] LABS: APPEARANCE,URINE CLOUDY (Clear); BILIRUBIN,URINE NEGATIVE (Negative); COLOR,URINE YELLOW (Yellow); GLUCOSE,URINE 1+ (Negative); KETONES,URINE NEGATIVE (Negative); LEUKOCYTE ESTERASE,URINE 1+ (Negative); NITRITE,URINE POSITIVE (Negative); OCCULT BLOOD,URINE 1+ (Negative); PH,URINE 5.5 (5.0-8.0); PROTEIN,URINE TRACE (Negative); UROBILINOGEN,URINE 0.2 (0.2-1.0)
[2024-01-22] MEDS: Insulin Lispro 100 Unit/ML 3 ML KwikPen SUBCUT ONE ×2 (15:39→19:18)
[2024-01-22] MEDS: Magnesium Oxide 400 MG Tab PO ONE (15:39)
[2024-01-22] MEDS: Magnesium Sulfate/Water 2 GM in Premix Bag 1 BAG IV ONE (15:39)
[2024-01-22 15:43] LABS: BACTERIA,URINE MANY /hpf (FEW); SQUAMOUS EPITHELIAL CELLS,UR 0-5 /hpf (0-5); WBC,URINE 20-30 /hpf (0-5)
[2024-01-22 15:44] LABS: MUCUS,URINE NOT SEEN /hpf (FEW)
[2024-01-22] MEDS: Potassium Chloride 20 MEQ Tab.ER PO ONE ×2 (15:44→17:10)
[2024-01-22] MEDS: cefTRIAXone 1 GM in Sodium Chloride 0.9% 100 ML IV ONE (17:10)
[2024-01-22 18:36] LABS: ANION GAP 10.2 (5-15); BUN/CREATININE RATIO 22.9 (14-18); CALCIUM 7.7 mg/dL (8.5-10.1); CREATININE 1.7 mg/dL (0.55-1.02); EST CRCL DRUG DOSING (CG) 20.87 mL/min; POTASSIUM,K 3.2 mEq/L (3.5-5.1)
== END 2024-01-22 19:35 | disposition home or self-care (01) ==
LOC: JD.ED 12:11
DX: E87.6 Hypokalemia (principal); N17.9 Acute kidney failure, unspecified; N30.00 Acute cystitis without hematuria; E11.65 Type 2 diabetes mellitus with hyperglycemia; I10 Essential (primary) hypertension; E78.00 Pure hypercholesterolemia, unspecified; I25.10 Atherosclerotic heart disease of native coronary artery without angina pectoris; J44.9 Chronic obstructive pulmonary disease, unspecified; Z90.49 Acquired absence of other specified parts of digestive tract; Z87.891 Personal history of nicotine dependence; Z79.899 Other long term (current) drug therapy; Z79.4 Long term (current) use of insulin; Z79.891 Long term (current) use of opiate analgesic; Z79.82 Long term (current) use of aspirin; Z88.8 Allergy status to other drugs, medicaments and biological substances
CPT/HCPCS: 36415; 80048; 80053; 81001; 82947; 83735; 83930; 85025; 87086; 87088; 87186; 93005; 93010; 96365; 96366; 96367; 96368; 99283; 99285-25; A9270-GY; C1758; J0696; J1815; J3475; J3480; J3490; J7120